=== PATIENT | female | born 1940 | race Caucasian/White ===

== ENCOUNTER 2021-02-05 11:24 | Emergency (ER) | payer MEDICARE, SELFPAY ==
--- NOTE | 2021-02-05 11:15 | RT.EKG_ITS ---
APPROVED REPORT Exam: Resting ECG Reason for Exam: S.O.B. Patient Location: E HR:77 bpm ECG Measurements Heart Rate 77 AXIS OK 167 P 69 QRSd 92 QRS 7 QT 339 T 42 QTc 385 Conclusion Sinus rhythm...normal P axis, V-rate 60- 99 Low voltage, extremity leads...all extremity leads <0.5mV
[2021-02-05 11:27] VITALS: BP 167/69; PULSE 85; RESP 22; TEMP 36.7; O2SAT 96
== END 2021-02-05 12:29 ==
DX: R69 Illness, unspecified (principal)
CPT/HCPCS: 93005; 93010

== ENCOUNTER 2021-02-05 11:35 | Inpatient (IN) | payer MEDICARE, SELFPAY ==
[2021-02-05] VITALS (103 sets, daily range): BP systolic 112–195; BP diastolic 54–161; PULSE 71–113; RESP 4–36; TEMP 36.1–37; O2SAT 88–100
[2021-02-05] MEDS: Normal Saline Flush 10 ML SYR IVP ×2 (11:45→18:21)
--- NOTE | 2021-02-05 11:45 | RT.EKG_ITS ---
APPROVED REPORT Exam: Resting ECG Reason for Exam: S.O.B. Patient Location: E HR:77 bpm ECG Measurements Heart Rate 77 AXIS GA 167 P 69 QRSd 92 QRS 7 QT 339 T 42 QTc 385 Conclusion Sinus rhythm...normal P axis, V-rate 60- 99 Low voltage, extremity leads...all extremity leads <0.5mV
--- NOTE | 2021-02-05 11:58 | ED.GENADUL_ITS ---
Discharge Plan Discharge Details Chief Complaint: RespSymp Admit Date/Time: 02/05/21 14:34 Admit Provider: Camille Cage Attending Provider: Camille Cage Primary Care Provider: None,None ED Provider: Fannie García Discharge Data Discharge Date/Time-TO BE ENTERED AT DEPARTURE: 02/05/21 21:25 Medical Decision Making <LIZANDRO Sosa - Last Filed: 02/06/21 22:56> Patient is an alert, oriented, of decisional capacity, she does not appear to be under the influence of any alcohol, she has no pulses in any way on my evaluation Her vitals are stable she is mildly tachypneic, she is dyspneic with any sort of movement and with each prolonged, she did have a DuoNeb that markedly improved her symptoms She also received a dose of Solu-Medrol She is still notably dyspneic with position change and even sitting upright in bed in long conversation, she will need admission and I think her evaluation displays that she has multifactorial illness, she likely has CHF and COPD affecting her at this time In addition to the hyponatremia which is likely causing her weakness Her bicarb was found to be elevated, 72, I did consider BiPAP for positive pressure, however patient is not hypoxic on 4 L of oxygen and likely this is a chronic finding for patient finding per patient and therefore D-dimer is 657, using age-adjusted D-dimer, there is no indication for CT at this time Chest x-ray shows cardiomegaly without overt signs of failure per radiology int erpretation of my review She was noted to be hyponatremic, 120 She was also noted to have hypomagnesemia, this was supplemented I believe sodium repletion to the discretion of the admitting hospitalist given patient's comorbidities, Dr. Cage requested a thyroid to be added on which I have, pending She also requested a dose of p.o. Lasix, we specifically discussed about hyponatremia and I did give oral 40 mg of Lasix Patient has been cooperative throughout the evaluation, her Covid test is negative and she reportedly was vaccinated over 1 month ago I think it is reasonable to remove her PUI at this time She was treated with Solu-Medrol and DuoNeb, she declines any at this time She did become very anxious and is chronically on Ativan, I did give her a dose of Ativan she is quite anxious, she did not exhibit obvious respiratory distress at this time and tolerated the Ativan well She is pending admission at this time, admission orders placed by Dr. Cage Differential Diagnosis Differential Diagnosis: Pulmonary embolism, pneumonia, CHF, COPD Medical Records Medical records reviewed: Yes I reviewed the patient's medical records. Lab Data Lab results reviewed: Yes I reviewed the patient's lab results. <Brayan Mayo MD - Last Filed: 02/05/21 12:46> I had a [id number] encounter with the patient. I evaluated the patient. I discussed case with [employer]PA and I reviewed [employer] note and agree with note as documented. HPI <LIZANDRO Sosa - Last Filed: 02/06/21 22:56> General Mode of arrival: EMS . Date/Time Provider Initiated Documentation: 02/05/21 11:51 . Limitations to Documentation: no limitations . Information obtained by: patient . HPI Narrative: This 80-year-old female with past medical history of COPD, CHF, right lung mass, hypomagnesemia, tobacco use presents with report of worsening shortness of breath and weakness for the past 2 weeks. She was discharged approximately 3 weeks ago from [facility] in [place]. She was reportedly living at a fdc facility and daughter rescued her. Patient drove with her daughter to [place] and has been here for approximately 2 weeks. She has yet to establish care with a provider. She states that her symptoms are similar to when she was previously admitted for similar presentation. She states she is unable to take more than several steps at home secondary to her shortness of breath. Denies any urinary complaints. States she drinks alcohol occasionally not daily. Her last drink was approximately a week and a half ago per patient. Denies any urinary complaints. Denies prior history of pulmonary embolism. Has had some increased peripheral edema. Has not been taking her Lasix for the past 8 months per patient. She would stay to complete a course of doxycycline approximately a week ago per patient. She thinks this was for a sinus infection. Related Data Home Medications Medication Instructions Recorded Confirmed Oxygen l NS PRN #2 07/28/14 06/09/15 ibuprofen 800 mg PO BID PRN #30 tab-cap 07/07/15 02/05/21 levalbuterol tartrate [Xopenex Hfa] 2 puff INHALATION Q4H PRN #1 07/07/15 02/05/21 inhaler acetaminophen 325 mg PO Q4H PRN 02/05/21 02/05/21 fluticasone furoate-vilanterol 1 inh INHALATION DAILY 02/05/21 02/05/21 [Breo Ellipta] furosemide 40 mg PO DAILY 02/05/21 02/05/21 levalbuterol HCl [Xopenex] 1.25 mg INHALATION Q8H PRN PRN 02/05/21 02/05/21 lidocaine 1 patch TOPICAL DAILY PRN 02/05/21 02/05/21 lisinopril 40 mg PO DAILY 02/05/21 02/05/21 lorazepam 0.5 mg PO BID PRN 02/05/21 02/05/21 roflumilast [Daliresp] 500 mcg PO DAILY 02/05/21 02/05/21 umeclidinium [Incruse Ellipta] 1 inh INHALATION DAILY 02/05/21 02/05/21 Allergies Allergy/AdvReac Type Severity Reaction Status Date / Time celecoxib [From Celebrex] Allergy Unknown Unverified 02/05/21 19:41 NSAIDS (Non-Steroidal Allergy Unknown Unverified 02/05/21 19:41 Anti-Inflamma Lfnlqfo-Dvm-Hlz Reductase Allergy Unknown Unverified 02/05/21 19:41 Inhibitor Sulfa (Sulfonamide Allergy Unknown unknown Unverified 02/05/21 12:22 Antibiotics) General Stated Complaint: RespSymp LOLA: 3 Review of Systems <LIZANDRO Sosa - Last Filed: 02/06/21 22:56> Narrative: Review of systems obtained x7 aside from where indicated in [facility] <LIZANDRO Sosa - Last Filed: 02/06/21 22:56> Medical History (Updated 02/06/21 @ 15:40 by Bharat Genao) Alcohol abuse Arthritis Back pain Bilateral sensorineural hearing loss CHF (congestive heart failure) Chronic frontal sinusitis Chronic maxillary sinusitis Chronic middle ear effusion Chronic respiratory failure with hypoxia Compression fracture of spine COPD (chronic obstructive pulmonary disease) GERD (gastroesophageal reflux disease) Hearing loss, bilateral Hyperlipidemia Hypertension Hyponatremia (07/20/14) Mass of right lung Mixed anxiety and depressive disorder Osteoporosis Psychiatric problem Tobacco abuse Surgical History (Updated 02/05/21 @ 19:45 by Camille Cage MD) H/O arthroscopy of left knee H/O cataract removal with insertion of prosthetic lens H/O pneumonectomy For histoplasmosis S/P colonoscopy Family History (System 02/05/21 @ 12:22 by Karmen Brownlee) Mother , colon cancer at age 85. No problems noted. Social History (System 02/05/21 @ 12:22 by Karmen Brownlee) Smoking/Tobacco Use Status: Current every day Tobacco Type: cigarettes Smoking risk assessment performed?: Yes Alcohol Intake: current Alcohol Intake frequency: holidays/special occasions only Drug use: Never Substance use type: does not use Do you feel safe at home: Yes Do you feel safe in your relationship?: Yes Exam <LIZANDRO Sosa - Last Filed: 02/06/21 22:56> Const General: ill appearing Orientation: alert and oriented x3 Limitations: mental status not altered HENMT Head: normal to inspection Other: Moist mucous membranes Resp Effort & Inspection: labored and tachypneic Auscultation: crackles, diminished lung sounds and wheezes Cardio Rate: regular rate Rhythm: regular rhythm Skin General skin exam: no rashes or lesions noted Neuro General: patient alert and patient oriented x3 Extrem Other: 1+ edema bilaterally, nontender Course <LIZANDRO Sosa - Last Filed: 02/06/21 22:56> Vital Signs Vital signs: Vital Signs Temperature 36.7 C 02/05/21 11:48 Pulse 85 02/05/21 11:48 Respiratory Rate 22 02/05/21 11:48 Blood Pressure 167/69 H 02/05/21 11:48 Pulse Oximetry 96 02/05/21 11:48 Temperature 36.7 C 02/05/21 11:48 Temperature Source Temporal Artery Scan 02/05/21 11:48 Pulse 85 02/05/21 11:48 Respiratory Rate 22 02/05/21 11:48 Respiratory Effort 02/05/21 11:52 Blood Pressure 167/69 H 02/05/21 11:48 Blood Pressure Position Sitting 02/05/21 11:48 Pulse Oximetry 96 02/05/21 11:48 Oxygen Delivery Method Nasal Cannula 02/05/21 11:48
[2021-02-05] MEDS: methylPREDNISolone SUCC 125 MG VIAL IM (12:00)
[2021-02-05] MEDS: Albuterol/Ipratropium 3 ML UPD VIAL UPD (12:01)
[2021-02-05 12:02] LABS: Lactate 0.7 mmol/L (0.6-1.4)
[2021-02-05 12:02] LABS: Source Nasal/Nares
[2021-02-05 12:03] LABS: Abs Immature Grans 0.03 10^3/uL (0.0-0.06); Absolute Basophil Count 0.02 10^3/uL (0.0-0.2); Absolute Eosinophil Count 0.01 10^3/uL (0.0-0.7); Absolute Lymphocyte Count 0.49 10^3/uL (1.2-3.4); Absolute Monocyte Count 0.56 10^3/uL (0.1-0.8); Absolute Neutrophil Count 4.04 10^3/uL (1.2-6.7); BE (Venous) 11 mmol/L (-2-3); Basophils % 0.4; Eosinophils % 0.2; HCO3 (Venous) 37 mmol/L (23-28); HGB 12.2 g/dL (11.2-15.7); Immature Grans % 0.6; Lymphocytes % 9.5; MCH 32.8 pg (27.0-33.0); MCHC 33.9 % (32.0-36.0); MCV 96.8 fL (80-95); MPV 8.9 fL (8.0-11.0); Monocytes % 10.9; Neutrophils % 78.4; Nucleated RBC 0 %; O2 Sat (Venous) 91 %; Platelet Count 251 10^3/uL (130-400); RBC 3.72 10^6/uL (3.93-5.22); RDW 13.2 % (11.7-14.6); RDW-SD 47.1 fL; TCO2 (Venous) 34 mmol/L (24-29); WBC 5.15 10^3/uL (4.4-10.8); pH (Venous) 7.32 (7.31-7.41); pO2 (Venous) 52 mmHg
[2021-02-05 12:05] LABS: pCO2 (Venous) 72 mmHg (41-51)
[2021-02-05 12:51] LABS: Bilirubin Negative (Negative); Blood Negative (Negative); Clarity Clear (Clear); Glucose Negative (Negative); Ketones Negative (Negative); Leukocyte Esterase Negative (Negative); Nitrite Negative (Negative); Specific Gravity 1.015 (1.005-1.025); pH 6.5 (5-8)
[2021-02-05 12:51] LABS: COVID-19 PCR Negative (Negative)
[2021-02-05 13:01] LABS: Bacteria Negative HPF (Negative); C & S Indicated? No; Casts Negative LPF (Negative); Crystals Negative HPF (Negative); Epithelial Cells Few HPF (Negative); Mucus Trace (Negative); RBC 0-2 HPF (0-2)
--- NOTE | 2021-02-05 13:15 | DI.RAD_ITS ---
Exam(s) XR CHEST 2V PA LATERAL EXAM: XR CHEST 2V PA LATERAL CLINICAL HISTORY: cough, shortness of breath TECHNIQUE: 2D digital imaging was performed. COMPARISON: No exams were available for comparison FINDINGS: Heart is enlarged. The aorta shows calcification but appears normal in diameter. There are diffuse fibrotic changes. Calcified granuloma is seen in the right upper lobe. No superimposed infiltrate i s visible. There is no evidence of effusion. IMPRESSION: No acute pulmonary findings. DATA REPOSITORY: RADIATION DOSE DELIVERED:
[2021-02-05 13:26] LABS: ALT 15 U/L (14-59); AST 19 U/L (15-37); Albumin 3.5 g/dL (3.4-5.0); Alkaline Phosphatase 106 U/L (46-116); Anion Gap 1.8 mmol/L (3-11); BUN 8 mg/dL (7-18); Bilirubin, Total 0.7 mg/dL (0.2-1.0); CO2 35.2 mmol/L (21.0-32.0); CREATININE 0.7 mg/dL (0.55-1.02); Calcium 8.8 mg/dL (8.5-10.1); Chloride 83 mmol/L (98-107); Glucose 96 mg/dL (74-106); Magnesium 1.5 mg/dL (1.8-2.4); NT-proBNP 579 pg/mL (<300); Potassium 5.1 mmol/L (3.5-5.1); Total Protein 6.9 g/dL (6.4-8.2)
[2021-02-05 13:39] LABS: Sodium 120 mmol/L (136-145); Troponin I < 0.05 ng/mL (<0.06)
[2021-02-05 13:40] LABS: D-Dimer 675 ng/mlFEU (<500)
[2021-02-05] MEDS: LORazepam 2 MG/ML VIAL (14:00)
[2021-02-05] MEDS: MAGNESIUM SULFATE 1 GM/100 ML BAG IVPB (14:01)
[2021-02-05] MEDS: Furosemide 20 MG TAB (14:48)
[2021-02-05 15:28] LABS: Troponin I < 0.05 ng/mL (<0.06)
[2021-02-05 15:32] LABS: TSH (W/Ref FT4) 0.84 uIU/mL (0.36-3.74)
[2021-02-05 15:38] LABS: Procalcitonin < 0.1 ng/mL
--- NOTE | 2021-02-05 15:43 | NUR.NOTE ---
ordered meal tray Nursing Note:
--- NOTE | 2021-02-05 16:56 | HPE_ITS ---
Date of service: 02/05/21 Time of Service: 16:40 Assessment and Plan Assessment and plan (1) Acute exacerbation of chronic obstructive pulmonary disease (COPD): Status: Acute Assessment and plan: Procalcitonin negative and sputum nonpurulent. Vaccinated against COVID-19; PCR negative. Continue steroids and nebs initiated in the ED. Resume outpatient roflumilast. (2) Acute exacerbation of CHF (congestive heart failure): Status: Acute Assessment and plan: IV lasix Monitor I/O's and daily weights. Obtain echo. (3) Chronic respiratory failure with hypoxia: Status: Chronic Assessment and plan: At baseline. Will monitor with activity (4) Hyponatremia: Status: Acute Assessment and plan: Could be dilutional in setting of acute CHF exacerbation or due to Bassam-i initiation. Hold Bassam-i. Diurese. Monitor BMP Q6Hrs. Latest Na is 122 when corrected for hyperglycemia. (5) Benign hypertension: Status: Chronic Assessment and plan: Hold bassam-i. Depending on echo results, would consider beta alberto. (6) Steroid-induced hyperglycemia: Status: Acute Assessment and plan: check A1C. Carb consistent diet, SSI. (7) Hypomagnesemia: Status: Acute Assessment and plan: Replete and recheck in am. (8) DVT prophylaxis: Status: Acute Assessment and plan: lovenox sc (9) Discharge planning issues: Status: Acute Assessment and plan: DNR/DNI Needs PCP. PT/OT consults suspect will require SNF placement Total Critical Care Time 60 minutes. History of Present Illness History of Present Illness Chief Complaint: Shortness of breath and weakness Narrative: Ms Sequeira is an 80 year old female who has recently relocated to [place] from [place], [place] (was taken out of a SNF by daughter), who has a PMHx of oxygen-dependent COPD, chronic hypoxic respiratory failure, normally on 3-4 L of O2 by OK, CHF (EF unknown), HTN, Hyperlipidemia, and hyponatremia, mentioned in our medical record in 2013, who was brought to [facility] ED by her daughter with complaints of shortness of breath and weakness for two days. The patient states she is fully vaccinated against COVID-19. She denies fever, runny nose, sore throat. States her cough is productive of clear sputum with occasional black stringy material. The patient states that her left ear still aches after recently recovering from a tooth infection which became sinusitis and ear infection as well. She completed antibiotics for this in [place]. She states that she has had a difficulty laying flat and wakes up short of breath in the middle of the night. She thinks her legs are more swollen than her baseline and that she has gained weight, but she does not weigh herself. She is denying chest pain, dizziness, abdominal pain, diarrhea/constipation. She endorses urinary frequency but denies dysuria. She endorses nausea when coughing, but has not been vomiting. In the ED, her workup revealed sodium of 120 (it has been as low as 125 in 2014 per records available to us in our computer system). Of note, the patient was prescribed lisinopril on discharge from [facility] [place], [place], on 01/13/21, which is a new med to her. She was found to be in both acute exacerbations of CHF and COPD. She was initiated on IV steroids, nebs, and lasix. Hospitalist admission was requested. Per patient's daughter, the patient was out of most of her medications except for lisinopril and fluticasone nasal spray and had not been taking them. Review of Systems All systems reviewed & are unremarkable except as noted in HPI and below PFSH Medical History (Updated 02/05/21 @ 20:17 by Camille Cage MD) Alcohol abuse Arthritis Back pain Bilateral sensorineural hearing loss CHF (congestive heart failure) Chronic frontal sinusitis Chronic maxillary sinusitis Chronic middle ear effusion Chronic respiratory failure with hypoxia Compression fracture of spine COPD (chronic obstructive pulmonary disease) GERD (gastroesophageal reflux disease) Hearing loss, bilateral Hyperlipidemia Hypertension Hyponatremia (07/20/14) Mass of right lung Mixed anxiety and depressive disorder Osteoporosis Psychiatric problem Tobacco abuse Surgical History (Updated 02/05/21 @ 19:45 by Camille Cage MD) H/O arthroscopy of left knee H/O cataract removal with insertion of prosthetic lens H/O pneumonectomy For histoplasmosis S/P colonoscopy Family History (System 02/05/21 @ 12:22 by Karmen Brownlee) Mother , colon cancer at age 85. No problems noted. Social History (System 02/05/21 @ 12:22 by Karmen Brownlee) Smoking/Tobacco Use Status: Current every day Tobacco Type: cigarettes Smoking risk assessment performed?: Yes Alcohol Intake: current Alcohol Intake frequency: holidays/special occasions only Drug use: Never Substance use type: does not use Do you feel safe at home: Yes Do you feel safe in your relationship?: Yes Meds Allergies and Home Medications Allergies Allergy/AdvReac Type Severity Reaction Status Date / Time celecoxib [From Celebrex] Allergy Unknown Unverified 02/05/21 19:41 NSAIDS (Non-Steroidal Allergy Unknown Unverified 02/05/21 19:41 Anti-Inflamma Vsylhre-Nmn-Eew Reductase Allergy Unknown Unverified 02/05/21 19:41 Inhibitor Sulfa (Sulfonamide Allergy Unknown unknown Unverified 02/05/21 12:22 Antibiotics) Home Medications Medication Instructions Recorded Confirmed Type Oxygen l NS PRN #2 07/28/14 06/09/15 History ibuprofen 800 mg PO BID PRN #30 tab-cap 07/07/15 02/05/21 History levalbuterol tartrate [Xopenex Hfa] 2 puff INHALATION Q4H PRN #1 07/07/15 02/05/21 History inhaler acetaminophen 325 mg PO Q4H PRN 02/05/21 02/05/21 History fluticasone furoate-vilanterol 1 inh INHALATION DAILY 02/05/21 02/05/21 History [Breo Ellipta] furosemide 40 mg PO DAILY 02/05/21 02/05/21 History levalbuterol HCl [Xopenex] 1.25 mg INHALATION Q8H PRN PRN 02/05/21 02/05/21 History lidocaine 1 patch TOPICAL DAILY PRN 02/05/21 02/05/21 History lisinopril 40 mg PO DAILY 02/05/21 02/05/21 History lorazepam 0.5 mg PO BID PRN 02/05/21 02/05/21 History roflumilast [Daliresp] 500 mcg PO DAILY 02/05/21 02/05/21 History umeclidinium [Incruse Ellipta] 1 inh INHALATION DAILY 02/05/21 02/05/21 History Exam Narrative Exam Narrative: General: Elderly female who is neither dyspneic nor tachypenic, hard of hearing, prefers to answer my questions with her eyes closed. Does not appear to be feeling well Neurological: A&Ox3, [place], otherwise no focal deficits Psychiatric: The patient appears detached; otherwise, normal speech pattern/content Skin: Visible skin intact HEENT: Atraumatic,normocephalic, EOMI, MMM, clear oropharynx, no submandibular or cervical lymphadenopathy, no goiter or JVD Cardiovascular: RRR, no m/r/g Lungs: rales and rhonchi B Gastrointestinal: soft, nontender, nondistended Genitourinary: deferred Extremities: 2+ BLE edema, L>R, 1+ pedal pulses B Results Imaging Additional studies: CXR: No acute pulmonary findings. EKG: NSR, HR 77, peaked T waves Labs Result diagrams: 02/05/21 11:45 02/05/21 17:58 Labs: Laboratory Results - last 24 hr 02/05/21 02/05/21 02/05/21 11:45 11:45 11:45 WBC 5.15 RBC 3.72 L Hgb 12.2 Hct 36.0 MCV 96.8 H MCH 32.8 MCHC 33.9 RDW 13.2 Plt Count 251 MPV 8.9 Immature Gran % 0.6 Neutrophils % 78.4 Lymphocytes % 9.5 Monocytes % 10.9 Eosinophils % 0.2 Basophils % 0.4 Nucleated RBC % 0 Absolute Neutrophils 4.04 Absolute Lymphocytes 0.49 L Absolute Monocytes 0.56 Absolute Eosinophils 0.01 Absolute Basophils 0.02 D-Dimer VBG pH VBG pCO2 VBG pO2 VBG HCO3 VBG Total CO2 VBG O2 Saturation VBG Base Excess VBG Lactate 0.7 Sodium Cancelled Potassium Cancelled Chloride Cancelled Carbon Dioxide Cancelled Anion Gap Cancelled BUN Cancelled Creatinine Cancelled Estimated GFR/1.73 m2 Cancelled Glucose Cancelled Calcium Cancelled Magnesium Total Bilirubin Cancelled AST Cancelled ALT Cancelled Alkaline Phosphatase Cancelled Troponin I Cancelled NT-Pro-B Natriuret Pep Cancelled Total Protein Cancelled Albumin Cancelled Procalcitonin TSH Urine Color Urine Clarity Urine pH Ur Specific [place] Urine Protein Urine Ketones Urine Blood Urine Nitrite Urine Bilirubin Urine Urobilinogen Ur Leukocyte Esterase Urine RBC Urine WBC Ur Epithelial Cells Urine Crystals Urine Bacteria Urine Casts Urine Mucus Ur Culture Indicated? Urine Glucose COVID-19 Source SARS-CoV-2 (PCR) 02/05/21 02/05/21 02/05/21 11:45 11:45 11:58 WBC RBC Hgb Hct MCV MCH MCHC RDW Plt Count MPV Immature Gran % Neutrophils % Lymphocytes % Monocytes % Eosinophils % Basophils % Nucleated RBC % Absolute Neutrophils Absolute Lymphocytes Absolute Monocytes Absolute Eosinophils Absolute Basophils D-Dimer 675 H VBG pH 7.32 VBG pCO2 72 H* VBG pO2 52 VBG HCO3 37 H VBG Total CO2 34 H VBG O2 Saturation 91 VBG Base Excess 11 H VBG Lactate Sodium Potassium Chloride Carbon Dioxide Anion Gap BUN Creatinine Estimated GFR/1.73 m2 Glucose Calcium Magnesium Total Bilirubin AST ALT Alkaline Phosphatase Troponin I NT-Pro-B Natriuret Pep Total Protein Albumin Procalcitonin TSH Urine Color Urine Clarity Urine pH Ur Specific [place] Urine Protein Urine Ketones Urine Blood Urine Nitrite Urine Bilirubin Urine Urobilinogen Ur Leukocyte Esterase Urine RBC Urine WBC Ur Epithelial Cells Urine Crystals Urine Bacteria Urine Casts Urine Mucus Ur Culture Indicated? Urine Glucose COVID-19 Source Nasal/nares SARS-CoV-2 (PCR) Negative 02/05/21 02/05/21 02/05/21 12:30 12:30 12:30 WBC RBC Hgb Hct MCV MCH MCHC RDW Plt Count MPV Immature Gran % Neutrophils % Lymphocytes % Monocytes % Eosinophils % Basophils % Nucleated RBC % Absolute Neutrophils Absolute Lymphocytes Absolute Monocytes Absolute Eosinophils Absolute Basophils D-Dimer VBG pH VBG pCO2 VBG pO2 VBG HCO3 VBG Total CO2 VBG O2 Saturation VBG Base Excess VBG Lactate Sodium 120 L* Potassium 5.1 Chloride 83 L Carbon Dioxide 35.2 H Anion Gap 1.8 L BUN 8 Creatinine 0.7 Estimated GFR/1.73 m2 >= 60.00 Glucose 96 Calcium 8.8 Magnesium Cancelled 1.5 L Total Bilirubin 0.7 AST 19 ALT 15 Alkaline Phosphatase 106 Troponin I < 0.05 NT-Pro-B Natriuret Pep 579 H Total Protein 6.9 Albumin 3.5 Procalcitonin < 0.1 TSH Urine Color Urine Clarity Urine pH Ur Specific [place] Urine Protein Urine Ketones Urine Blood Urine Nitrite Urine Bilirubin Urine Urobilinogen Ur Leukocyte Esterase Urine RBC Urine WBC Ur Epithelial Cells Urine Crystals Urine Bacteria Urine Casts Urine Mucus Ur Culture Indicated? Urine Glucose COVID-19 Source SARS-CoV-2 (PCR) 02/05/21 02/05/21 02/05/21 12:35 15:03 15:03 WBC RBC Hgb Hct MCV MCH MCHC RDW Plt Count MPV Immature Gran % Neutrophils % Lymphocytes % Monocytes % Eosinophils % Basophils % Nucleated RBC % Absolute Neutrophils Absolute Lymphocytes Absolute Monocytes Absolute Eosinophils Absolute Basophils D-Dimer VBG pH VBG pCO2 VBG pO2 VBG HCO3 VBG Total CO2 VBG O2 Saturation VBG Base Excess VBG Lactate Sodium Potassium Chloride Carbon Dioxide Anion Gap BUN Creatinine Estimated GFR/1.73 m2 Glucose Calcium Magnesium Total Bilirubin AST ALT Alkaline Phosphatase Troponin I < 0.05 NT-Pro-B Natriuret Pep Total Protein Albumin Procalcitonin TSH 0.84 Urine Color Yellow Urine Clarity Clear Urine pH 6.5 Ur Specific [place] 1.015 Urine Protein Trace H Urine Ketones Negative Urine Blood Negative Urine Nitrite Negative Urine Bilirubin Negative Urine Urobilinogen 1.0 H Ur Leukocyte Esterase Negative Urine RBC 0-2 Urine WBC 3-5 Ur Epithelial Cells Few Urine Crystals Negative Urine Bacteria Negative Urine Casts Negative Urine Mucus Trace Ur Culture Indicated? No Urine Glucose Negative COVID-19 Source SARS-CoV-2 (PCR) Last Vital Signs Temp 36.7 C 02/05/21 11:48 Pulse 95 H 02/05/21 16:46 Resp 23 02/05/21 16:46 BP 152/125 H 02/05/21 16:46 Pulse Ox 94 02/05/21 15:46 COVID-19 Screening Have you, or household traveled for leisure in last 14 days?: Yes Had IN PERSON contact w/suspected or confirmed C-19 person: No
[2021-02-05] MEDS: Enoxaparin 60 MG/0.6 ML SYR SC (18:18)
[2021-02-05] MEDS: Pantoprazole 40 MG VIAL IVP (18:20)
[2021-02-05 18:27] LABS: Anion Gap 3.7 mmol/L (3-11); BUN 9 mg/dL (7-18); CO2 33.3 mmol/L (21.0-32.0); Calcium 8.7 mg/dL (8.5-10.1); Chloride 82 mmol/L (98-107); Estimated GFR 53.35 (mL/min/1.73m2); Glucose 273 mg/dL (74-106); Potassium 4.8 mmol/L (3.5-5.1)
[2021-02-05 18:31] LABS: Sodium 119 mmol/L (136-145)
[2021-02-05 21:15] LABS: Osmolality, Urine 276 mOsm/kg (150-1,150)
[2021-02-05 21:21] LABS: Osmolality Serum 248 mOsm/kg (275-295)
[2021-02-05] MEDS: LORazepam 0.5 MG TAB PO (21:53)
[2021-02-05] MEDS: methylPREDNISolone SUCC 125 MG VIAL 80 MG IVP (21:54)
[2021-02-05] MEDS: Levalbuterol 1.25 MG/3 ML UPD VIAL IH (22:15)
[2021-02-05] MEDS: MAGNESIUM SULFATE 2 GM/50 ML BAG IVPB (22:16)
[2021-02-05] MEDS: Insulin Aspart 300 UNITS/3 ML PEN SC (22:38)
[2021-02-06] VITALS (44 sets, daily range): BP systolic 130–182; BP diastolic 55–87; PULSE 83–116; RESP 4–37; TEMP 36–36.5; O2SAT 88–99
[2021-02-06 01:02] LABS: Anion Gap 3.3 mmol/L (3-11); BUN 11 mg/dL (7-18); CO2 34.7 mmol/L (21.0-32.0); CREATININE 0.8 mg/dL (0.55-1.02); Calcium 8.7 mg/dL (8.5-10.1); Chloride 84 mmol/L (98-107); Glucose 180 mg/dL (74-106); Potassium 4.4 mmol/L (3.5-5.1)
[2021-02-06 01:03] LABS: Sodium 122 mmol/L (136-145)
[2021-02-06] MEDS: Normal Saline Flush 10 ML SYR IVP ×2 (04:59→21:37)
[2021-02-06] MEDS: Albuterol/Ipratropium 3 ML UPD VIAL UPD (04:59)
[2021-02-06] MEDS: methylPREDNISolone SUCC 125 MG VIAL 80 MG IVP (04:59)
[2021-02-06 07:01] LABS: Abs Immature Grans 0.01 10^3/uL (0.0-0.06); Absolute Eosinophil Count 0.01 10^3/uL (0.0-0.7); Absolute Lymphocyte Count 0.25 10^3/uL (1.2-3.4); Absolute Monocyte Count 0.05 10^3/uL (0.1-0.8); Absolute Neutrophil Count 2.71 10^3/uL (1.2-6.7); Eosinophils % 0.3; HCT 33.4 % (36.0-46.0); HGB 11.4 g/dL (11.2-15.7); Immature Grans % 0.3; Lymphocytes % 8.3; MCH 32.7 pg (27.0-33.0); MCHC 34.1 % (32.0-36.0); MCV 95.7 fL (80-95); MPV 9.2 fL (8.0-11.0); Monocytes % 1.7; Neutrophils % 89.4; Nucleated RBC 0 %; Platelet Count 253 10^3/uL (130-400); RBC 3.49 10^6/uL (3.93-5.22); RDW 13.2 % (11.7-14.6); RDW-SD 46.3 fL; WBC 3.03 10^3/uL (4.4-10.8)
[2021-02-06 07:13] LABS: Anion Gap 2.3 mmol/L (3-11); BUN 9 mg/dL (7-18); CO2 35.7 mmol/L (21.0-32.0); CREATININE 0.9 mg/dL (0.55-1.02); Calcium 8.9 mg/dL (8.5-10.1); Chloride 83 mmol/L (98-107); Glucose 245 mg/dL (74-106); Magnesium 1.8 mg/dL (1.8-2.4); Potassium 4.6 mmol/L (3.5-5.1)
[2021-02-06 07:15] LABS: Sodium 121 mmol/L (136-145)
[2021-02-06 07:32] LABS: Hemoglobin A1C 5.4 % (<5.7)
[2021-02-06] MEDS: Furosemide 20 MG/2 ML VIAL IVP (08:29)
[2021-02-06] MEDS: Insulin Aspart 300 UNITS/3 ML PEN SC ×2 (08:29→16:55)
[2021-02-06] MEDS: Roflumilast 500 MCG TAB PO (08:30)
--- NOTE | 2021-02-06 08:31 | INITIAL_ITS ---
- If Service Date Differs Date of service: 02/06/21 Time of Service: 08:32 Care Management Initial Assess REASON FOR HOSPITALIZATION:: Acute exacerbation of COPD PAST MEDICAL HISTORY/PAST SURGICAL HISTORY:: Medical History (Updated 02/05/21 @ 20:17 by Camille Cage MD). Alcohol abuse. Arthritis. Back pain. Bilateral sensorineural hearing loss. CHF (congestive heart failure). Chronic frontal sinusitis. Chronic maxillary sinusitis. Chronic middle ear effusion. Chronic respiratory failure with hypoxia. Compression fracture of spine. COPD (chronic obstructive pulmonary disease). GERD (gastroesophageal reflux disease). Hearing loss, bilateral. Hyperlipidemia. Hypertension. Hyponatremia (07/20/14). Mass of right lung. Mixed anxiety and depressive disorder. Osteoporosis. Psychiatric problem. Tobacco abuse. Surgical History (Updated 02/05/21 @ 19:45 by Camille Cage MD). H/O arthroscopy of left knee. H/O cataract removal with insertion of prosthetic lens. H/O pneumonectomy. For histoplasmosis. S/P colonoscopy PREVIOUS FUNCTIONAL STATUS/SOCIAL/FAMILY SUPPORTS:: Amanda lives in [facility]. with her daughter Reema. Amanda has 2 other daughters and 2 sons. She is close to the 2 boys and Reema but has not spoken to the others in a long time. She also has 14 grandchildren and 5-6 great grandchildren.[place] and they have [address]. She has recently relocated from [place] where she has lived for the past 40 years. Amanda was in an assisted living facility in [place] where she stated she received substandard care. Amanda uses a walker for ambulation but is independent with ADLs. She has home oxygen at 4 liters continuous bur uses 3L on her portable tank. CURRENT FUNCTIONAL STATUS:: Amanda was sitting up in bed in the ICU when CM met with her. She was polite and agreeable to conversation. 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 She has also moved a lot. She grew up in [facility], then moved to to [place], and then [place] before moving to [place] with her . ADVANCE DIRECTIVES:: none on file Has patient been provided with info about the portal/API?: Yes Did the patient sign up for the portal?: No CODE STATUS:: DNR/DNI INSURANCE COVERAGE / FINANCIAL ISSUES:: Medicare. Commercial Insurance CURRENT HOME/COMMUNITY SERVICES/EQUIPMENT:: amanda has a rollater and a shower chair and home oxygen PRIMARY CARE PHYSICIAN:: none in the area. Dr. Ortiz T-Doc on day of admission POTENTIAL DISCHARGE NEEDS:: establish care with local PCP PATIENT/FAMILY EDUCATION NEEDS:: Review of discharge instructions, medications, limitations, activity, follow up plan, Ask Me Three TRANSPORTATION:: via private vehicle with daughter PLAN:: Amanda will likley be discharged home with new home health services for nursing, PT and OT. She will follow up with her assigned provider and plan of care and transport with her daughter.
--- NOTE | 2021-02-06 09:02 | PT.INIE ---
Date of service: 02/06/21 Time of Service: 08:35 PT Notes Visit Reasons: ACUTE EXACERBATION OF COPD,RESP FALIURE,HYPONATREM Inpatient Physical Therapy Evaluation Date: February 06, 2021 Referring Doctor: Camille Cage PT Orders: PT CONSULT: Limited ability Precautions: Standard precautions Patient Profile/Admitting Diagnosis: Acute exacerbation of COPD, respiratory failure, hyponatremia PMHX: COPD, CHF, right lung mass, hypomagnesia, tobacco use, peripheral edema, benign hypertension, steroid-induced hyperglycemia Social History/Home Situation: Patient relocated to [place] living with her daughter coming from [place] from detention care facility. Ramp into the dwelling. She will be living on single floor with no stairs. Current Functional Limitations: Independent ambulation Equipment Owned/DME: Front wheeled walker Subjective: Patient is an 80-year-old female admitted to [facility] secondary to acute exacerbation of COPD. Patient reports worsening shortness of breath and weakness over the last couple weeks while she was relocating from [place] to [place] with her daughter. The trip took approximately 2 weeks to get to [place]. Reports she is limited with multiple step secondary to shortness of breath. Patient was living in a detention care facility, [facility] in [place]. Objective: General Observation: Upon start of initial evaluation patient was already sitting bedside. She states she assume that position independently. She has telemetry, cubital fossa IV, 4 L of O2, O2 saturation monitor left index finger (patient right-handed) blood pressure cuff left upper extremity Mental Status: Alert and oriented x3 Pain: Patient reports occasional pain in right knee secondary to OA. No pain at time of initial evaluation Vital Signs: O2 saturation upon start 91% on 4 L nasal cannula. Baseline home uses 3-4 L. Desaturated to 86% during transfer. ROM: Right Upper Extremity: Within functional limits Left Upper Extremity: Within functional limits Right Lower Extremity: Within functional limits Left Lower Extremity: Within functional limits Strength: Right Upper Extremity: 4/5 shoulder flexion and abduction, 4+/5 bicep tricep, 4+/5 maintenance service dispatcher Left Upper Extremity: 4/5 shoulder flexion and abduction, 4+/5 bicep and tricep, 4+/5 maintenance service dispatcher Right Lower Extremity: 4-/5 hip flexion, 4 -/5 quad with mild pain reports, 4/5 hamstring, 4/5 dorsiflexion and plantar flexion Left Lower Extremity: 4/5 hip flexion, quad and hamstring, 4/5 and plantar flexion Sensation: Ports intact sensation light touch throughout bilateral lower extremities Bed Mobility/Transfers: Supine to sit: Independent Sit to stand: Min assist x1 to front wheeled walker Stand to sit: Standby assist from front wheeled walker Sit to commode: Standby assist with front wheeled walker. Patient maintains static standing balance while donning her undergarment.. Bed mobility: Independent Gait: Patient ambulates 5 feet x 2 with contact-guard x1 with front wheeled walker Balance: Static Sitting: Good Dynamic Sitting: Good Static Standing: Fair Dynamic Standing: Fair Special Tests: Mobility Limitations Standardized Measure [facility] AM-PAC 6 clicks Basic Mobility Inpatient Short Form: Raw Score: 19 standardized Score: 45.44 CMS Score: 41.77 Informed Consent/Education: Patient instructed in purpose of PT consult and plan of care. Assessment: Patient is an 80-year-old female referred for physical therapy services with diagnosis of acute exacerbation of COPD. Functional ability actually quite decent. She does desaturate. Fab demonstrates good ability to perform supine to sit transfer as she was sitting bedside at start of initial evaluation. Patient presents with clinical signs and symptoms consistent with current/admitting diagnoses that have resulted to mobility limitations, gait instability, generalized weakness, and impairment of motor control as demonstrated by the following impairment level findings: 1.? Decreased strength to B LE major muscle groups 2.? Impaired standing balance 3.? Impaired activity tolerance, shortness of breath with ambulation Impairments are contributing to the following functional limitations: 1.? Dependent bed mobility skills 2.? Increased dependence with transfers 3.? Inability to safely ambulate without assistive device 4.? Increased fall risk 6.? Inability to return to prior living environment at this time Patient is assessed as a 97545 moderate complexity based on the following: History: 80-year-old female with past medical history as indicated above Examination: Demonstrable impairment in strength, balance, and mobility level with underlying impairments and functional limitations as exhibited above as well as deficit score of 41.77% utilizing the [facility] Mobility Inpatient Short Form Presentation: Evolving Decision Making:? 82409 moderate complexity Goals: Goals X1 week 1. Sit-Stand: Standby assist to front wheeled walker 2. Stand-Sit: Standby assist from front wheeled walker 3. Bed-Chair: Standby assist with use of front wheel walker 4. Chair-Bed: Standby assist with front wheeled walker 5. Gait: 150 feet standby assist with front wheeled walker 6. Independent with home exercise program [] Plan of Care/Treatment Plan: 1-2x/day, 7 days/week x 1 week. Plan of care has been reviewed with the KNOT SAW OPERATOR providing the service under Physical Therapy direction. Initiate Physical Therapy intervention for strengthening, bed mobility, transfers, gait, stairs, balance training, use of assistive device. DISCHARGE RECOMMENDATIONS: [facility] care facility upon discharge from [facility] TREATMENT CODE/TIME: 08917 / 8:35?9;05 Thank you for this consult. Brayan Garcia PT, DPT Disclaimer: This note was created using [employer] voice recognition software. It was reviewed for major content. However, there may be multiple small discrepancies and errors due to the voice recognition aspects of the software.
[2021-02-06] MEDS: predniSONE 20 MG TAB 60 MG PO (10:14)
[2021-02-06] MEDS: Furosemide 40 MG/4 ML VIAL IVP (10:14)
[2021-02-06] MEDS: Insulin NPH-Human 300 UNITS/3 ML PEN 15 UNIT SC ×2 (10:18→16:57)
--- NOTE | 2021-02-06 13:45 | PHA.REVIEW ---
Pharmacy Admission Review - Admission Clinical Review (This Medical Record has been edited. Action required.) Discharge planning issues (Acute) DVT prophylaxis (Acute) Hypomagnesemia (Acute) Steroid-induced hyperglycemia (Acute) Acute exacerbation of CHF (congestive heart failure) (Acute) Acute exacerbation of chronic obstructive pulmonary disease (COPD) (Acute) Hyponatremia (Acute 07/20/14) celecoxib [From Celebrex] Allergy (Unknown, Unverified 02/05/21 19:41) NSAIDS (Non-Steroidal Anti-Inflamma Allergy (Unknown, Unverified 02/05/21 19:41) Rtjktah-Nsn-Aza Reductase Inhibitor Allergy (Unknown, Unverified 02/05/21 19:41) Sulfa (Sulfonamide Antibiotics) Allergy (Unknown, Unverified 02/05/21 12:22) unknown Height 5 ft 5 in Weight 86.5 kg - Comments Comments/Follow Ups: Patient new to the area, had not been taking some of her meds. Trying to fluid restricted for Hyponatremia correction and started Lasix infusion for CHF. BP 147/67, Afebrile, no Micro. Recent Anbx course for ear/tooth infection. Trend Bnp, watch I/O and weight - Renal Dosing Renal Dosing: BUN 9 mg/dL (7-18) 02/06/21 06:08 Creatinine 0.9 mg/dL (0.55-1.02) 02/06/21 06:08 Medications needing adjustments: Reviewed (CrCl~45ml/min) - Anticoagulation Anticoagulation: Hgb 11.4 g/dL (11.2-15.7) 02/06/21 06:08 Hct 33.4 % (36.0-46.0) L 02/06/21 06:08 Plt Count 253 10^3/uL (130-400) 02/06/21 06:08 Creatinine 0.9 mg/dL (0.55-1.02) 02/06/21 06:08 DVT Prohphylaxis: Reviewed Medications: Enoxaparin (Lovenox 40mg) - Opiate Usage Evaluate Pain Scale/Pains Meds: N/A - Relevant Labs Sodium 121 mmol/L (136-145) L* 02/06/21 06:08 Potassium 4.6 mmol/L (3.5-5.1) 02/06/21 06:08 Chloride 83 mmol/L (98-107) L 02/06/21 06:08 Magnesium 1.8 mg/dL (1.8-2.4) 02/06/21 06:08 Electrolytes, C-Reactive P, ESR: Reviewed (Hyponatremic, aware, will need to increase slowly, restricting fluids (CHF) and on Lasix infusion, repeat afternoon labs, Probnp 579) - DM Control DM Control: Glucose 245 mg/dL (74-106) H 02/06/21 06:08 Hemoglobin A1c 5.4 % (<5.7) 02/06/21 06:08 Finger Stick Blood Glucose 131 Finger Stick Blood Glucose 131 Finger Stick Blood Glucose 195 Finger Stick Blood Glucose 195 Insulin Dosing: Reviewed (Novolog scale and NPH for additional coverage while on steroids) - Heart Failure/MN Heart Failure/MN: Troponin I < 0.05 ng/mL (<0.06) 02/05/21 15:03 NT-Pro-B Natriuret Pep 579 pg/mL (<300) H 02/05/21 12:30 EF%, STEPHANIE's, B-Blockers, Diuretics: Reviewed (Lasix infusion began 02/06/21~11am) - BP Control BP Control: Blood Pressure 147/67 Blood Pressure 145/65 Blood Pressure 130/55 Blood Pressure 157/65 Blood Pressure 160/82 Blood Pressure 172/77 Blood Pressure 182/82 Blood Pressure 149/71 - IV to PO Switch IV Medications: Reviewed (Protonix & Steroids changed to oral) - Home Meds Home Med List reviewed: Reviewed Relevent Home Meds Not ordered & why?: Ibuprofen, Lidocaine patch, Lisinopril (cause of Hyponatremia?), Incruse - Current meds Current Medication Order Review: Reviewed (Symbicort substituted from home med Breo Ellipta)
[2021-02-06 14:17] LABS: Anion Gap 0.8 mmol/L (3-11); BUN 15 mg/dL (7-18); CO2 38.2 mmol/L (21.0-32.0); CREATININE 0.9 mg/dL (0.55-1.02); Chloride 85 mmol/L (98-107); Glucose 172 mg/dL (74-106); Potassium 4.8 mmol/L (3.5-5.1)
[2021-02-06 14:18] LABS: Sodium 124 mmol/L (136-145)
--- NOTE | 2021-02-06 14:18 | W.PM.PROGNOT ---
Date of Service Date of service: 02/06/21 Time of Service: 14:18 Assessment and Plan Assessment and plan (1) Acute exacerbation of chronic obstructive pulmonary disease (COPD): Status: Acute Assessment and plan: cont. O2 per NC and nebulizers, steroids (switch to PO prednisone). No antibiotics at this time unless sputum becomes purulent or she has a fever or other markers of infection. Note she has been intolerant of her Daliresp d/t severe nausea and diarrhea. I will dc this. (2) Acute exacerbation of CHF (congestive heart failure): Status: Acute Assessment and plan: I suspect acute on chronic HFPEF d/t LVH, HTN. Troponin I have been neg. therefore not ACS. cont. lasix drip overnight w/ monitoring of her BNP and BMP and U.O. probably will dc the drip in the a.m. and switch her to po lasix. check formal echo on Monday a.m. Qualifiers: Heart failure type: unspecified Qualified Code(s): I50.9 - Heart failure, unspecified (3) Chronic respiratory failure with hypoxia: Status: Chronic Assessment and plan: oxygen, nebulizers and steroids as above. (4) Hyponatremia: Status: Acute Assessment and plan: d/t volume overload/chf. restrict po fluids and diurese as above. (5) DVT prophylaxis: Status: Acute Assessment and plan: enoxaparin SC (6) Discharge planning issues: Status: Acute Assessment and plan: discharge home to her daughter once medically stable. May need home nursing to follow up upon discharge. Subjective Subjective Interval history since last seen: 80-year-old white female with oxygen dependent COPD chronically on 3 to 4 L oxygen via nasal cannula at home, CHF (unknown ejection fraction) hypertension, hyperlipidemia, hyponatremia who recently relocated within the past month from [facility] [place] to [place], [place]. She presents to [facility] w/ progrssive dyspnea w/o chest pain, bilateral leg edema, but no fever, rigors. She has been fully vaccinated for COVID-19. She has had a cough productive of clear to white mucous. She recently completed antibitoics for URI/sinusits and ear infection. Evaluate in the ER revealed hyponatremia sodium 120. CBC did not show any leukocytosis. She was afebrile on admission. Troponin I was normal x 2 sets and her BNP was mildly elevated at 579. CXR demonstrated cardiomegaly w/ aortic calcification and lungs w/ diffuse fibrotic changes and calcified granulomas in RUL. She says that she had part of her left lung resected for Histoplasmosis. She has no infiltrates nor effusions on her CXR. She was diagnosed w/ COPD exacerbation and acute on chronic CHF. She was given iv lasix 20 mg in the ER but her repeat serum sodium went down to 119. I advised Dr. Cage to continue to diurese and to restrict her po fluid intake. Overnight her sodium has risen to 124. But her BUN and creatinine have remained relativ marlo stable at 15 and 0.9. She has been started on iv steroids, nebulized bronchodilators but not on antibiotics. I have put her on lasix drip to try to improve her urine output, control CHF and improve her hyponatremia. A formal echo will be done on Monday morning. Exam Narrative Exam Narrative: Obese elderly white female sitting up in bed watching TV. She is very hard of hearing and has her TV turned up very loud. After shutting off the TV however we were able to communicate She denies any pain. She is mildly dyspneic w/ any activity. She uses her accessory muscles but is not in any respiratory distress. Lungs w/ diffuse wheezing Heart is regular but slightly tachycardic Abdomen is soft, nontender and obese Legs w/ 1+ pitting edema Neuro exam is nonfocal w/ no gross motor or CN deficits other than she is very hard of hearing Objective Last Vital Signs Temp 36.1 C L 02/06/21 08:38 Pulse 89 02/06/21 12:01 Resp 14 02/06/21 12:01 BP 147/67 H 02/06/21 12:01 Pulse Ox 92 02/06/21 13:56 Laboratory Results - last 24 hr 02/05/21 02/05/21 02/05/21 12:30 15:03 15:03 WBC RBC Hgb Hct MCV MCH MCHC RDW Plt Count MPV Immature Gran % Neutrophils % Lymphocytes % Monocytes % Eosinophils % Basophils % Nucleated RBC % Absolute Neutrophils Absolute Lymphocytes Absolute Monocytes Absolute Eosinophils Absolute Basophils Sodium Potassium Chloride Carbon Dioxide Anion Gap BUN Creatinine Estimated GFR/1.73 m2 Glucose Hemoglobin A1c Calcium Magnesium Troponin I < 0.05 Procalcitonin < 0.1 TSH 0.84 02/05/21 02/06/21 02/06/21 17:58 00:40 06:08 WBC RBC Hgb Hct MCV MCH MCHC RDW Plt Count MPV Immature Gran % Neutrophils % Lymphocytes % Monocytes % Eosinophils % Basophils % Nucleated RBC % Absolute Neutrophils Absolute Lymphocytes Absolute Monocytes Absolute Eosinophils Absolute Basophils Sodium 119 L* 122 L* Potassium 4.8 4.4 Chloride 82 L 84 L Carbon Dioxide 33.3 H 34.7 H Anion Gap 3.7 3.3 BUN 9 11 Creatinine 1.0 0.8 Estimated GFR/1.73 m2 53.35 >= 60.00 Glucose 273 H D 180 H D Hemoglobin A1c 5.4 Calcium 8.7 8.7 Magnesium Troponin I Procalcitonin TSH 02/06/21 02/06/21 06:08 06:08 WBC 3.03 L D RBC 3.49 L Hgb 11.4 Hct 33.4 L MCV 95.7 H MCH 32.7 MCHC 34.1 RDW 13.2 Plt Count 253 MPV 9.2 Immature Gran % 0.3 Neutrophils % 89.4 Lymphocytes % 8.3 Monocytes % 1.7 Eosinophils % 0.3 Basophils % 0.0 Nucleated RBC % 0 Absolute Neutrophils 2.71 Absolute Lymphocytes 0.25 L Absolute Monocytes 0.05 L Absolute Eosinophils 0.01 Absolute Basophils 0.00 Sodium 121 L* Potassium 4.6 Chloride 83 L Carbon Dioxide 35.7 H Anion Gap 2.3 L BUN 9 Creatinine 0.9 Estimated GFR/1.73 m2 >= 60.00 Glucose 245 H Hemoglobin A1c Calcium 8.9 Magnesium 1.8 Troponin I Procalcitonin TSH Reviewed Pertinent PMH: Yes Objective Narrative Objective Narrative: POCUS exam of her lungs reveals diffuse bilateral B line patter c/w interstitial lung process such as CHF or interstitial pneumonitis. no pleural effusions nor any consolidations. Echo POCUS demonstrates: normal LV function w/ mod. LVH, calcified mitral and aortic valves (doppler not done). RV appears to contract well. IVC has >50 inspiratory collapse; small pericardial effusion seen
[2021-02-06] MEDS: Enoxaparin 40 MG/0.4 ML SYR SC (16:55)
[2021-02-06] MEDS: LORazepam 0.5 MG TAB PO (17:49)
[2021-02-06 18:56] LABS: Anion Gap 2.6 mmol/L (3-11); BUN 20 mg/dL (7-18); CO2 36.4 mmol/L (21.0-32.0); Calcium 9.2 mg/dL (8.5-10.1); Chloride 83 mmol/L (98-107); Estimated GFR 53.35 (mL/min/1.73m2); Glucose 204 mg/dL (74-106); Magnesium 1.5 mg/dL (1.8-2.4); Potassium 4.9 mmol/L (3.5-5.1)
[2021-02-06 19:03] LABS: Sodium 122 mmol/L (136-145)
[2021-02-06] MEDS: MAGNESIUM SULFATE 4 GM/100 ML BAG IVPB (19:29)
[2021-02-06] MEDS: Normal Saline 500 ML 10 ML IV (21:35)
[2021-02-07] VITALS (12 sets, daily range): BP systolic 148–158; BP diastolic 64–79; PULSE 81–104; RESP 4–24; TEMP 36.4–36.8; O2SAT 4–99
[2021-02-07] MEDS: LORazepam 0.5 MG TAB PO ×2 (02:15→18:59)
[2021-02-07 07:13] LABS: Anion Gap -1.8 mmol/L (3-11); BUN 20 mg/dL (7-18); CO2 41.8 mmol/L (21.0-32.0); CREATININE 0.9 mg/dL (0.55-1.02); Calcium 8.9 mg/dL (8.5-10.1); Chloride 85 mmol/L (98-107); Glucose 113 mg/dL (74-106); NT-proBNP 946 pg/mL (<300); Potassium 4.3 mmol/L (3.5-5.1); Sodium 125 mmol/L (136-145)
[2021-02-07] MEDS: Roflumilast 500 MCG TAB PO (08:20)
[2021-02-07] MEDS: predniSONE 20 MG TAB 60 MG PO (08:20)
[2021-02-07] MEDS: Pantoprazole 40 MG TABCR PO (08:20)
[2021-02-07] MEDS: Insulin NPH-Human 300 UNITS/3 ML PEN 15 UNIT SC (08:21)
[2021-02-07 09:07] LABS: Magnesium 2.3 mg/dL (1.8-2.4)
--- NOTE | 2021-02-07 09:16 | W.PM.PROGNOT ---
Date of Service Date of service: 02/07/21 Time of Service: 09:17 Assessment and Plan Assessment and plan (1) Acute exacerbation of chronic obstructive pulmonary disease (COPD): Status: Acute Assessment and plan: Per nursing patient is not having any diarrhea or nausea or vomiting therefore I do not think that the Daliresp has anything to do with her prior complaints of diarrhea and cramping; therefore I will keep the Daliresp. She has been refusing her nebulizer treatments. I have switched her to xopenex HFA qid and prn and added Spiriva. (2) Acute exacerbation of CHF (congestive heart failure): Status: Acute Assessment and plan: I suspect acute on chronic HFPEF d/t LVH, HTN. Troponin I have been neg. therefore not ACS. dc lasix drip and convert to po lasix w/ magnesium supplementation, monitor her BNP and BMP and check echo tomorrow Qualifiers: Heart failure type: unspecified Qualified Code(s): I50.9 - Heart failure, unspecified (3) Chronic respiratory failure with hypoxia: Status: Chronic Assessment and plan: oxygen, nebulizers and steroids as above. (4) Hyponatremia: Status: Acute Assessment and plan: d/t volume overload/chf. restrict po fluids and diurese as above. serum sodium is improving. (5) DVT prophylaxis: Status: Acute Assessment and plan: enoxaparin SC (6) Discharge planning issues: Status: Acute Assessment and plan: discharge home to her daughter once medically stable. May need home nursing to follow up upon discharge. However P.T. is recommending referral to SNF upon discharge. I am not sure that the patient or her daughter will be agreeable to this. Subjective Subjective Interval history since last seen: Patient has been refusing her updrafts (DuoNebs). I will change her to xopenex inhalers along w/ Spiriva. She is medically stable. Her hyponatremia is improving w/ diuretics and fluid restrictions. Magnesium was low last night and patient had complained of muscle spasms. Better today and Mg now up to 2.3. I will put her on oral supplementation given she will need continued lasxi; however, I think that we can dc the lassix drip and put her on oral lasix. She will be transferred to med/surg today. Continue prednisone. Exam Narrative Exam Narrative: Elderly white female who is very hard of hearing. alert/oriented Lungs w/ diffuse wheezing Heart regular but tachycardia (rhythm is sinus tachcardia) Abdomen: soft, nontender Legs: trace edema Ramesh draining clear yellow urine Objective Last Vital Signs Temp 36.2 C L 02/06/21 23:30 Pulse 84 02/07/21 03:34 Resp 22 02/07/21 08:00 BP 158/73 H 02/07/21 03:34 Pulse Ox 97 02/07/21 08:00 Laboratory Results - last 24 hr 02/06/21 02/06/21 02/07/21 14:02 18:38 06:00 Sodium 124 L 122 L* 125 L Potassium 4.8 4.9 4.3 Chloride 85 L 83 L 85 L Carbon Dioxide 38.2 H 36.4 H 41.8 H Anion Gap 0.8 L 2.6 L -1.8 L BUN 15 D 20 H 20 H Creatinine 0.9 1.0 0.9 Estimated GFR/1.73 m2 >= 60.00 53.35 >= 60.00 Glucose 172 H 204 H 113 H D Calcium 9.0 9.2 8.9 Magnesium 1.5 L 2.3 NT-Pro-B Natriuret Pep 946 H
--- NOTE | 2021-02-07 11:12 | PT.INTREAT ---
PT Notes Visit Reasons: ACUTE EXACERBATION OF COPD,RESP FALIURE,HYPONATREM Inpatient Physical Therapy Treatment Note [facility] Date: 02/07/21 OBJECTIVE: Sit-stand: CGA Stand-sit: CGA GAIT Assistive Device: FWW. Weight bearing: Full Assist: CGA Distance: Bed to window to chair and back to bed. Pt also completed marching in place to F. THEREX: Pt completed UE and LE strengthening ther ex as per flow sheet while seated. ASSESSMENT: Pt tolerated today's session fairly well. Pt did take short rest periods for SOB. PLAN: Cont as per PT POC. TREATMENT CODE/TIME: 10:25-10:50 (25) MARLA ZIMMER
[2021-02-07] MEDS: Levalbuterol 1.25 MG/3 ML UPD VIAL IH (11:18)
[2021-02-07] MEDS: Lisinopril 20 MG TAB PO (11:37)
[2021-02-07] MEDS: Azithromycin 250 MG TAB 500 MG PO (11:37)
[2021-02-07] MEDS: Magnesium Oxide 400 MG TAB PO ×2 (11:37→19:38)
--- NOTE | 2021-02-07 14:59 | NUR.NOTE ---
1340: Pt transferred from room 219 to room 226 via wheelchair with all her personal belongings, see shift assesment for complete arrival to to room 226 shift assesment.
[2021-02-07] MEDS: Furosemide 40 MG TAB PO (16:56)
[2021-02-07] MEDS: Insulin Aspart 300 UNITS/3 ML PEN SC (16:56)
[2021-02-07] MEDS: Enoxaparin 40 MG/0.4 ML SYR SC (16:56)
[2021-02-07] MEDS: Insulin NPH-Human 300 UNITS/3 ML PEN 10 UNIT SC (16:57)
--- NOTE | 2021-02-07 19:26 | PDOC.CMPRO ---
- If Service Date Differs Date of service: 02/07/21 Time of Service: 19:26 Care Management Progress Note S/O: A: Mary Jane is an 80 ear old woman admitted on 02/05/21 with COPD P:Mary Jane will likely be discharged home with new home health services for nursing, PT and OT. She will follow up with her assigned provider and plan of care and transport with her daughter. CM will continue to support Mary Jane and her discharge planning needs.
[2021-02-07] MEDS: Acetaminophen 325 MG TAB PO (21:10)
[2021-02-07] MEDS: Levalbuterol HFA 15 GM INH 2 PUFF IH (23:36)
[2021-02-08 03:17] VITALS: O2SAT 95
[2021-02-08 07:33] LABS: BUN 30 mg/dL (7-18); CREATININE 1.1 mg/dL (0.55-1.02); Calcium 9.1 mg/dL (8.5-10.1); Chloride 87 mmol/L (98-107); Estimated GFR 47.79 (mL/min/1.73m2); Glucose 76 mg/dL (74-106); NT-proBNP 629 pg/mL (<300); Potassium 4.5 mmol/L (3.5-5.1); Sodium 126 mmol/L (136-145)
[2021-02-08] MEDS: Pantoprazole 40 MG TABCR PO (07:33)
[2021-02-08] MEDS: Azithromycin 250 MG TAB PO (07:34)
[2021-02-08] MEDS: Budesonide/Formoterol 80/4.5 6.9 GM 60 PUFF INH IH (07:35)
[2021-02-08] MEDS: Magnesium Oxide 400 MG TAB PO (07:38)
[2021-02-08] MEDS: Lisinopril 20 MG TAB PO (07:39)
[2021-02-08] MEDS: Roflumilast 500 MCG TAB PO (07:39)
[2021-02-08] MEDS: predniSONE 20 MG TAB 60 MG PO (07:39)
[2021-02-08] MEDS: Furosemide 40 MG TAB PO (07:39)
[2021-02-08] MEDS: Tiotropium Bromide-Respimat 10 PUFF INH 2 PUFF IH (07:44)
--- NOTE | 2021-02-08 08:00 | DI.US_ITS ---
APPROVED REPORT EXAM: Comprehensive 2D, Doppler, and color-flow Echocardiogram Patient Location: In-Patient Room/Bed: 226 Lead Military Analyst: Abby Lopez RDCS (AE) Indications: CHF Other Information Study Quality: Fair. Technically limited study due to uncooperative patient, body habitus. Conclusion Left Ventricle : The left ventricle is normal size. The left ventricular systolic function is normal. The left ventricular ejection fraction is within the normal range. Mild concentric left ventricular hypertrophy. There is normal LV segmental wall motion. The diastolic function is abnormal. LVEF is 55 %. Right Ventricle : The right ventricle is normal size. The right ventricular systolic function is norm al. Atria : Left atrium is moderately dilated. Right atrium is moderately dilated. Valves: There are no hemodynamically significant valvular lesions. Great Vessels : The aortic root is normal in size. The ascending aorta is mildly dilated. Aortic arch is not visualized. The IVC was not visualized. Please see remainder of study for further details. Wall motion Left Ventricle The left ventricle is normal size. The left ventricular systolic function is normal. The left ventric ular ejection fraction is within the normal range. Mild concentric left ventricular hypertrophy. Ther e is normal LV segmental wall motion. The diastolic function is abnormal. There is no ventricular sep rochelle defect visualized. LVEF is 55%. Right Ventricle The right ventricle is normal size. The right ventricular systolic function is normal. Atria Left atrium is moderately dilated. Right atrium is moderately dilated. The interatrial septum is inta ct with no evidence for an atrial septal defect. Aortic Valve The aortic valve is normal in structure. Aortic valve is probably trileaflet. No hemodynamically sign ificant valvular aortic stenosis. Trace aortic regurgitation. Mitral Valve Moderate mitral annular calcification. No evidence of mitral valve stenosis. Trace to mild mitral reg urgitation. Tricuspid Valve The tricuspid valve is normal in structure. There is no tricuspid valve stenosis. Mild tricuspid regu rgitation. Pulmonic Valve The pulmonary valve is normal in structure. There is no pulmonic valvular stenosis. Trace pulmonic re gurgitation. Great Vessels The aortic root is normal in size. The ascending aorta is mildly dilated. Aortic arch is not visualiz ed. The IVC was not visualized. Pericardium There is no pericardial effusion. 2D Dimensions IVSD d PLAX 1.15 cm F: 0.6-1.0 LV Vol A2C d MOD 87.9 mL LVPW d PLAX 1.12 cm F: 0.6 - 1.0 LV Vol A4C d MOD 75.3 mL LVID d PLAX 4.44 cm F: 3.8 - 5.2 LA vol/ BSA A2C s A-L 40.5 mL/m2 LVDs 3.15 cm F: 2.2 - 3.5 LA vol/ BSA A4C s A-L 43.3 mL/m2 Ao Root d 2.45 cm F: 2.7 - 3.3 LA Vol/ BSA Biplane s A-L 42.2 mL/m2 RA Area A4C 15.94 cm2 LA Area A4C s MOD 24.39 cm2 RA Vol/ BSA A4C s A-L 21.6 mL/m2 LA Area A2C s MOD 23.41 cm2 Ao Asc Diam d 3.40 cm F: 2.3 - 3.1 LV EF A4C MOD 56.3 % LV EF Teichholz 55.0 % LV EF A2C MOD 54.6 % LVEF (Arenas's) 52.96 % F: 54 - 74 LV EF Biplane MOD 53.0 % LV Volume 62.24 mL F: 46 - 106 SV 43.60 mL LV Volume Index 31.91 mL/m2 F: 29 - 61 SV Index 22.33 mL/m2 LV Vol Biplane MOD 82.3 mL FS 28.40 % M-Mode TAPSE 2.13 cm (M/F) >1.7 LV Diastology MV E' medial 0.055 (>0.07 m/s) E/A Ratio 0.7 LV E/e MED 14.75 (<14) MV E Vmax 0.81 (0.4-1.3 m/s) MV E' lateral 0.073 (>0.1 m/s) MV A Vmax 1.10 (0.4-1.3 m/s) LV E/e LAT 11.05 (<14) MV E/A Ratio 0.73 MV E/E' medial 14.77 MV E/E' lateral 11.08 Aortic Valve LVOT Area 2.89 cm2 AoV Area Vmax 1.65 cm2 LVOT Vmax 1.13 m/s AoV Area/ BSA (Vmax) 0.85 cm2/m2 LVOT Mean Jimenez. 0.76 m/s SAMUEL Mean Jimenez. 1.48 cm2 LVOT Peak Grad 5.1 mmHg SAMUEL Mean Jimenez. Index 0.76 cm2/m2 LVOT Mean Grad 2.6 mmHg LVOT VTI 0.215 m LVOT Diam s 1.90 cm AoV Vmax 1.98 m/s Velocity Ratio 0.57 AoV Mean Jimenez. 1.49 m/s AoV Peak Grad 15.6 mmHg LVOT SV 62.05 mL AoV Mean Grad 9.7 mmHg AoV VTI 0.377 m AoV Area VTI 1.65 cm2 AoV Area/ BSA (VTI) 0.84 cm/m2 Mitral Valve MV DT 228 (160-240 msec) MV PHT 66 msec MV Area PHT 3.33 cm2 MV VTI 0.437 m MV VTI Annulus 0.422 m MV Area VTI 1.37 (4.0-6.0 cm2) Pulmonary Valve PV Vmax 0.96 (0.5-1.5 m/s) RVOT Peak Gr. 1.98 mmHg PV Peak Grad 3.7 mmHg RVOT Mean Gr. 0.90 mmHg PV Mean Grad 2.0 mmHg RVOT VTI 0.122 m PV VTI 0.189 m RVOT Vmax 0.70 m/s Tricuspid Valve TR Peak Grad 26.1 mmHg TR Vmax 2.55 m/s
--- NOTE | 2021-02-08 08:25 | DSE_ITS ---
Date of service: 02/08/21 Time of Service: 08:26 DS: Diagnosis Discharge Diagnosis (1) Acute exacerbation of chronic obstructive pulmonary disease (COPD): Status: Acute Asessment and Plan: Patient will be treated with 3 more days of prednisone 60 mg daily and she will complete 4 more days of azithromycin. She is to resume her home inhalers including Xopenex her Incruse Ellipta was replaced with Spi tu. She is to continue her Daliresp and her Brio Ellipta. (2) Acute exacerbation of CHF (congestive heart failure): Status: Acute Asessment and Plan: Patient should have an outpatient echocardiogram to evaluate LV and RV function. (3) Hyponatremia: Status: Acute Asessment and Plan: Patient has chronic hyponatremia probably due to her underlying COPD and CHF. Patient's been instructed on the use of her furosemide as well as fluid restriction. Repeat BMP has been ordered for next week. (4) Hypomagnesemia: Status: Acute Asessment and Plan: Patient experienced transient hypomagnesemia that caused some muscle spasms this was induced by a furosemide drip. This was readily corrected. It is recommended that she have a follow-up outpatient magnesium level once she resumes her oral furosemide. She may benefit from magnesium supplementation. (5) Steroid-induced hyperglycemia: Status: Acute Asessment and Plan: Patient experienced steroid-induced hyperglycemia which was treated with split doses of NPH. Glycohemoglobin A1c was 5.4% therefore the patient does not have diabetes mellitus. It is anticipated that her glucose will normalize once she tapers off the prednisone. (6) Benign hypertension: Status: Chronic Asessment and Plan: Patient to continue her lisinopril 40 mg daily. Furosemide has been increased to 40 mg twice a day. Patient is to have a follow-up BMP in a week to monitor her renal function electrolytes. (7) Discharge planning issues: Status: Acute Discharge Plan Disposition Patient Disposition: HOME W/HOME HEALTH SERVICE Condition: Improving Discharge Details Reason For Visit: ACUTE EXACERBATION OF COPD,RESP FALIURE,HYPONATREM Admit Date/Time: 02/05/21 14:34 Admit Provider: Camille Cage Attending Provider: Camille Cage Primary Care Provider: None,None Hospital Course Hospital Course: 80-year-old white female with a history of oxygen dependent COPD normally uses 3-4 L of oxygen by nasal cannula, history of CHF, hypertension, hyperlipidemia, hyponatremia recently moved from [facility] to [place] to live with her daughter. Patient had just been taken out of a SNF couple weeks prior to this admission after prolonged hospitalization in [place]. Patient is fully vaccinated against COVID-19. She presented to the emergency department with increased cough and shortness of breath but no fever or rigors or chest discomfort. Chest x-ray demonstrated cardiomegaly and aortic calcifications and diffuse fibrotic changes in the lungs along with a calcified granuloma in the right upper lobe. No superimposed infiltrates and no pleural effusions. BMP demonstrated hyponatremia with serum sodium of 119 with a normal BUN of 9 and creatinine 1.0. Glucose was elevated 273. Troponin I level was less than 0.05x2 sets. proBNP was mildly elevated at 579 but later climbed to as high as 946. TSH was normal at 0.84. Procalcitonin level was less than 0.1. CBC showed no leukocytosis. White count was 5100 and she had no anemia. Patient was admitted to the hospital for treatment of COPD exacerbation and acute on chronic congestive heart failure and hyponatremia. In the emergency department she was started on DuoNeb nebulizers and given Solu-Medrol. She was treated with high-dose Solu-Medrol throughout her hospital stay at 80 mg every 8 hours and then switched to prednisone 60 mg daily on the day prior to her discharge. Patient started to refuse nebulizers and insisted on her Xopenex MDI. Patient never spiked any fever and had no leukocytosis. Her hyperglycemia was treated with insulin including NPH and was placed on a sliding scale of NovoLog. Serial BMPs and proBNP were monitored. Serum sodium beti to as high as 126 on the day of discharge. She started to show some prerenal azotemia with a BUN of 30 and creatinine 1.1 at which point we held her Lasix. Magnesium transiently dropped to 1.5 but then was corrected to 2.3. proBNP on the day of discharge was down to 629. She was treated with a Lasix drip for 24 hours and then converted to oral Lasix and her fluids were restricted 1000 mL a day. Echocardiogram has been ordered but as it was the weekend this has not been completed. Patient is feeling markedly better and is insisting on going home today. She still has diffuse wheezes but is not tachypneic and not in any respiratory discomfort. She is on her baseline oxygen supplementation at 3 to 4 L/min per nasal cannula. She was started on azithromycin for an acute bronchitis and will complete 4 more days of azithromycin. Her furosemide will be held for a day and a repeat BMP has been ordered. She will be discharged home with home health services including home PT and home OT and nursing and medical appointment scheduler to assist with coordination of outpatient services. Home Meds and New Rx's Prescriptions: New azithromycin 250 mg Tablet 250 mg PO DAILY Qty: 4 RF: 0 prednisone 20 mg Tablet 60 mg PO DAILY 3 Days Qty: 9 RF: 0 Spiriva Respimat 2.5 mcg/actuation Mist 2 puff inhalation DAILY Qty: 1 RF: 0 Continued Oxygen EACH NS PRN Qty: 2 RF: 0 levalbuterol tartrate [Xopenex HFA] 15 GM HFA aerosol inhaler 2 puff Inhalation Q4H PRN Qty: 1 RF: 11 lisinopril 40 mg Tablet 40 mg PO DAILY RF: 0 furosemide 40 mg Tablet 40 mg PO DAILY RF: 0 acetaminophen 325 mg Tablet 325 mg PO Q4H PRNRF: 0 lidocaine 4 % Adhesive Patch,Medicated 1 patch TOPICAL DAILY PRNRF: 0 lorazepam 0.5 mg Tablet 0.5 mg PO BID PRNRF: 0 levalbuterol HCl [Xopenex] 1.25 mg/3 mL Solution For Nebulization 1.25 mg INHALATION Q8H PRN PRNRF: 0 Daliresp 500 mcg Tablet 500 mcg PO DAILY RF: 0 Breo Ellipta 100-25 mcg/dose Blister With Device 1 inh INHALATION DAILY RF: 0 Discontinued ibuprofen 800 MG tablet 800 mg PO BID PRNQty: 30 RF: 3 Incruse Ellipta 62.5 mcg/actuation Blister With Device 1 inh INHALATION DAILY RF: 0 Discharge Instructions Instructions: Heart Failure (DC), Chronic Lung Disease and Infection Prevention (DC), Energy Conservation Techniques (DC), Dyspnea Scale and Exercise (DC), Nutrition Guidelines for People with COPD (DC) Additional Instructions: do not take your lasix (furosemide) today but resume use tomorrow. get repeat labs within the next week to monitor your kidney function and sodium levels. Stand Alone Forms: Nursing Discharge Form Referrals: Georgi Ortiz [ [facility] STAFF PHYSICIAN] - 02/18/21 10:00 am (with Srinivasa Sanchezwell, will need to have paperwork filed out for New patient care after appt.) Activity:: Activity as Tolerated Equipment/Supplies:: No Equipment Needed Diet:: Low Sodium Discharge Orders Discharge Orders: Discharge Order (Routine); Ordered 02/08/21 Ordered By: Bharat Genao Other Ambulatory Orders: Basic Metabolic Panel (Routine) Timeframe: 1 Week Facility: [facility] - Location: Laboratory Outpatient Ordered By: Bharat Genao DS: Summary Time Spent with Patient providing and/or coordinating discharge services: Greater than 30 minutes Status at Discharge Functional status at discharge: independent ambulation Overall status at discharge: patient is progressing back to baseline Mental Status: mental status grossly normal Speech and Movement: speech and movement normal Mood: congruent mood Affect: normal affect Exam Narrative Exam Narrative: Elderly white female who is very hard of hearing. alert/oriented sitting up at bedside eating breakfast and watching TV Lungs w/ diffuse wheezing Heart regular but tachycardia (rhythm is sinus tachcardia) Abdomen: soft, nontender Legs: no edema Psych Mental Status: mental status grossly normal Speech and Movement: speech and movement normal Mood: congruent mood Affect: normal affect DS: Data Vitals/I&O Vitals and I&O: Vital Signs Temperature 36.8 C 02/07/21 23:38 Temperature Source Tympanic 02/07/21 23:38 Pulse 91 H 02/07/21 23:38 Pulse Rhythm Regular 02/08/21 03:17 Pulse 85 02/07/21 08:00 Respiratory Rate 19 02/07/21 23:38 Respiratory Effort Short of Breath 02/08/21 03:17 Respiratory Depth Normal 02/08/21 03:17 Respiratory Pattern Normal 02/08/21 03:17 Blood Pressure 148/78 H 02/07/21 23:38 Blood Pressure Mean 95 02/07/21 03:34 Blood Pressure Position Supine 02/07/21 08:00 Pulse Oximetry 95 02/08/21 03:17 Oxygen Delivery Method Nasal Cannula 02/08/21 03:17 Oxygen Flow Rate 4 02/08/21 03:17 Pain Level 0 02/07/21 23:38 Intake & Output 02/07/21 02/07/21 02/08/21 11:59 23:59 11:59 Intake Total 646.667 / 1305.834 659.167 / 1305.834 Output Total 1200 / 1500 300 / 1500 Balance -553.333 / -194.166 359.167 / -194.166 Weight 88.2 kg Intake: IV 36.667 / 255.834 219.167 / 255.834 Oral 610 / 1050 440 / 1050 Output: Urine 1200 / 1500 300 / 1500 Other: Urine Color Yellow Light Abi Yellow Urine Appearance Sediment Clear Clear Urine Odor Strong Comment Ramesh catheter in place draining clear yellow urine. Stool Size Smear Stool Characteristics Hard Voiding Methods Bedside Commode Bedside Commode Data Completed and Pending Labs on day of discharge: Labs from last 24 hours 02/08/21 02/07/21 02/05/21 06:50 06:00 12:35 Sodium 126 L 125 L Potassium 4.5 4.3 Chloride 87 L 85 L Carbon Dioxide 42.0 H 41.8 H Anion Gap -3.0 L -1.8 L BUN 30 H D 20 H Creatinine 1.1 H 0.9 Estimated GFR/1.73 m2 47.79 >= 60.00 Glucose 76 113 H D Serum Osmolality Calcium 9.1 8.9 Magnesium 2.3 NT-Pro-B Natriuret Pep 629 H 946 H Urine Osmolality 276 02/05/21 12:30 Sodium Potassium Chloride Carbon Dioxide Anion Gap BUN Creatinine Estimated GFR/1.73 m2 Glucose Serum Osmolality 248 L Calcium Magnesium NT-Pro-B Natriuret Pep Urine Osmolality [facility] Medical History (Updated 02/06/21 @ 15:40 by Bharat Genao) Alcohol abuse Arthritis Back pain Bilateral sensorineural hearing loss CHF (congestive heart failure) Chronic frontal sinusitis Chronic maxillary sinusitis Chronic middle ear effusion Chronic respiratory failure with hypoxia Compression fracture of spine COPD (chronic obstructive pulmonary disease) GERD (gastroesophageal reflux disease) Hearing loss, bilateral Hyperlipidemia Hypertension Hyponatremia (07/20/14) Mass of right lung Mixed anxiety and depressive disorder Osteoporosis Psychiatric problem Tobacco abuse Surgical History (Updated 02/05/21 @ 19:45 by Camille Cage MD) H/O arthroscopy of left knee H/O cataract removal with insertion of prosthetic lens H/O pneumonectomy For histoplasmosis S/P colonoscopy Family History (System 02/05/21 @ 12:22 by Karmen Brownlee) Mother , colon cancer at age 85. No problems noted. Social History (System 02/05/21 @ 12:22 by Karmen Brownlee) Smoking/Tobacco Use Status: Current every day Tobacco Type: cigarettes Smoking risk assessment performed?: Yes Alcohol Intake: current Alcohol Intake frequency: holidays/special occasions only Drug use: Never Substance use type: does not use Do you feel safe at home: Yes Do you feel safe in your relationship?: Yes
--- NOTE | 2021-02-08 08:26 | PDOC.HHF2F_ITS ---
Home Health Certification Home Health Certification: 1. Encounter Date and Reason I certify that Mary Jane Sequeira was seen by Bharat Genao on 02/08/21 and that I had a [id number] encounter with this patient that meets the physician face to face encounter requirements. 2. Clinical Findings Supporting Skilled Need and Homebound Status I certify that home health services are medically necessary, include either intermittent senior living and/or physical/speech therapy, and that this patient is homebound in that absences from the home require considerable and taxing effort and are infrequent or of short duration, or are attributable to the need to receive medical care. [X] (a) Attached documentation from encounter provides clinical findings supporting skilled need and homebound status (including what assistance patient requires to leave the home). The encounter with the patient was in whole, or in part, for the following medical condition, which is the primary reason for home health care: ACUTE EXACERBATION OF COPD,RESP FALIURE,HYPONATREM Care Home: nursing to evaluate and treat for COPD exacerbation and hyponatremia; including obtaining labs; instruction on management of exacerbation, monitoring of her respiratory response; instruction in energy conservation techniques Physical Therapy: P.T. and O.T. to evaluate and treat for generalized weakness and decondtioning due to COPD exacerbation Speech Therapy: Homebound: patient's respiratory status compromises her ability to safely obtain medical care outside her home 3. Certification and Authentication I certify that I composed the above information based on my clinical judgement relating to this patient's medical condition and, if applicable, clinical findings communicated to me by the NPP or inpatient physician who performed the Home Health Referral. All further orders will be obtained through Georgi Ortiz M.D. (Community Based Physician - PCP)
[2021-02-08] MEDS: Levalbuterol HFA 15 GM INH 2 PUFF IH (08:32)
[2021-02-08 08:34] VITALS: BP 152/74; PULSE 78; RESP 16; TEMP 36.7; O2SAT 100
[2021-02-08] MEDS: Insulin NPH-Human 300 UNITS/3 ML PEN 10 UNIT SC (08:43)
--- NOTE | 2021-02-08 12:16 | PDOC.CMDIS ---
- If Service Date Differs Date of service: 02/08/21 Time of Service: 12:16 LACE Index Scoring Tool - Questions: Length of Stay (in days): 3 Acuity (Admit via E.D.?): Yes Comorbidities: Congestive Heart Failure, Connective Tissue Disease E.D. Visits: 1 - Answers: Total Score: 12 Risk of Readmission: High Risk Care Management Discharge Reason for Hospitalization: Acute exacerbation of COPD Discharge Plan: Mary Jane will be discharged home with new home health services for PT, OT and nursing. She will follow up with her T-doc appointment at [facility] and plan of care. Mary Jane will transport with her daughter Reema via private vehicle. Patient/Family Education Needs: Review of discharge instructions, medications, limitations, activity, follow up plan, Ask Me Three Services Needed at Discharge: Home Health Care Services
[2021-02-08] MEDS: Acetaminophen 325 MG TAB PO (12:32)
--- NOTE | 2021-02-09 09:15 | PT.INDS ---
Date of service: 02/09/21 Time of Service: 09:16 PT Notes Visit Reasons: ACUTE EXACERBATION OF COPD,RESP FALIURE,HYPONATREM Physical Therapy Inpatient Discharge Summary Date: February 09, 2021 Date of service: 02/06/2021 through 02/07/2021 Referring Doctor: Camille Cage PT Orders: PT CONSULT: Limited ability Precautions: Standard precautions Patient Profile/Admitting Diagnosis: Acute exacerbation of COPD, respiratory failure, hyponatremia PMHX: COPD, CHF, right lung mass, hypomagnesia, tobacco use, peripheral edema, benign hypertension, steroid-induced hyperglycemia Social History/Home Situation: Patient relocated to [place] living with her daughter coming from [place] from [facility].? Ramp into the dwelling.? She will be living on single floor with no stairs. Current Functional Limitations: Independent ambulation Equipment Owned/DME: Front wheeled walker Subjective:?NT. See most recent EXPANSION JOINT BUILDER notes. Objective:?? General Observation: NT. See most recent EXPANSION JOINT BUILDER notes. Mental Status: Alert and oriented x3 Pain: NT. See most recent EXPANSION JOINT BUILDER notes. Vital Signs: NT. See most recent EXPANSION JOINT BUILDER notes. ROM: Right Upper Extremity: Within functional limits? Left Upper Extremity: Within functional limits Right Lower Extremity: Within functional limits Left Lower Extremity: Within functional limits Strength: Right Upper Extremity: 4/5 shoulder flexion and abduction, 4+/5 bicep tricep, 4+/5 casualty underwriter Left Upper Extremity: 4/5 shoulder flexion and abduction, 4+/5 bicep and tricep, 4+/5 casualty underwriter Right Lower Extremity: 4-/5 hip flexion, 4 -/5 quad with mild pain reports, 4/5 hamstring, 4/5 dorsiflexion and plantar flexion Left Lower Extremity: 4/5 hip flexion, quad and hamstring, 4/5 and plantar flexion Sensation:?Ports intact sensation light touch throughout bilateral lower extremities Bed Mobility/Transfers: Supine to sit: Independent Sit to stand: Contact-guard assist Stand to sit: Contact-guard assist Sit to commode:Contact-guard assist Bed mobility: Contact-guard assist Gait:?Patient ambulates 5 feet x 2 with contact-guard x1 with front wheeled walker Balance:? Static Sitting: Good Dynamic Sitting: Good Static Standing: Fair Dynamic Standing: Fair Assessment: Patient is an 80-year-old female referred for physical therapy services with diagnosis of acute exacerbation of COPD.?Patient to go home with 24 7 supervision. Functional ability actually quite decent. Patient will benefit from home health PT services in order to progress mobility level using least restrictive assistive ambulatory device, assess home safety, identify additional equipment needs, and establish a functional maintenance program that will increase ability of patient to remain at home. Patient continues to present with clinical signs and symptoms consistent with current/admitting diagnoses that have resulted to mobility limitations, gait instability, generalized weakness, and impairment of motor control as demonstrated by the following impairment level findings: 1.? Decreased strength to B LE major muscle groups 2.? Impaired standing balance 3.? Impaired activity tolerance, shortness of breath with ambulation ? Impairments are continuing to contribute to the following functional limitations: 1.? Increased dependence with transfers 2.? Inability to safely ambulate without assistive device 3.? Increased fall risk 64? Inability to return to prior living environment at this time Goals: Goals X1 week 1. Sit-Stand: Standby assist to front wheeled walker MET 2. Stand-Sit: Standby assist from front wheeled walker MET 3. Bed-Chair: Standby assist with use of front wheel walker MET 4. Chair-Bed: Standby assist with front wheeled walker MET 5. Gait: 150 feet standby assist with front wheeled walker MET 6. Independent with home exercise program MET DISCHARGE RECOMMENDATIONS: Patient will benefit from home health PT services in order to progress mobility level using least restrictive assistive ambulatory device, assess home safety, identify additional equipment needs, and establish a functional maintenance program that will increase ability of patient to remain at home. TREATMENT CODE/TIME: TN Thank you for the opportunity to participate in the care of this patient. Luzmaria Castro PT, DPT, CLT [facility] [place], [place]
== END 2021-02-08 13:08 | disposition home health service (06) | DRG 190 ==
LOC: ER 12:15 → ICU 21:30 → MS 02-07 13:44
PROVIDERS: Internal Medicine; Admitting Provider Internal Medicine; Emergency Provider Physician Assistant; Visit Provider Internal Medicine
DX: J44.1 Chronic obstructive pulmonary disease with (acute) exacerbation (principal); I50.33 Acute on chronic diastolic (congestive) heart failure; J96.11 Chronic respiratory failure with hypoxia; E87.1 Hypo-osmolality and hyponatremia; I11.0 Hypertensive heart disease with heart failure; E83.42 Hypomagnesemia; R73.9 Hyperglycemia, unspecified; T38.0X5A Adverse effect of glucocorticoids and synthetic analogues, initial encounter; Z20.822 Contact with and (suspected) exposure to COVID-19; Z66 Do not resuscitate; Z99.81 Dependence on supplemental oxygen; E78.5 Hyperlipidemia, unspecified; H90.3 Sensorineural hearing loss, bilateral; M54.9 Dorsalgia, unspecified; J32.1 Chronic frontal sinusitis; J32.0 Chronic maxillary sinusitis; K21.9 Gastro-esophageal reflux disease without esophagitis; R91.1 Solitary pulmonary nodule; F41.8 Other specified anxiety disorders; M81.0 Age-related osteoporosis without current pathological fracture; F17.210 Nicotine dependence, cigarettes, uncomplicated; F10.10 Alcohol abuse, uncomplicated
CPT/HCPCS: 36415; 36416; 80048; 80053; 82805; 82962; 83935; 84145; 87635; 93005; 93306; 94640; 96365; 96366; 96372; 96375; 97110; 97162; 97530; 99285; J1650; 71046; 81003; 81015; 83036; 83605; 83735; 83880; 83930; 84443; 84484; 85025; 85379; 93010; 99232; 99239; 99284; 99291; J1940; J1941; J2060; J2930; J3475; J7512; J7614; J7620

== ENCOUNTER 2021-02-17 12:11 | Inpatient (IN) | payer MEDICARE, SELFPAY ==
[2021-02-17] VITALS (88 sets, daily range): BP systolic 135–240; BP diastolic 63–122; PULSE 91–119; RESP 2–42; TEMP 31–37.5; O2SAT 79–98
--- NOTE | 2021-02-17 12:00 | RT.EKG_ITS ---
APPROVED REPORT Exam: Resting ECG Reason for Exam: sob Patient Location: E HR:104 bpm ECG Measurements Heart Rate 104 AXIS TX 144 P 51 QRSd 94 QRS 1 QT 321 T 40 QTc 423 Conclusion Sinus tachycardia...rate> 99 Low voltage, extremity leads...all extremity leads <0.5mV
[2021-02-17 12:35] LABS: Abs Immature Grans 0.07 10^3/uL (0.0-0.06); Absolute Basophil Count 0.03 10^3/uL (0.0-0.2); Absolute Eosinophil Count 0.02 10^3/uL (0.0-0.7); Absolute Lymphocyte Count 0.92 10^3/uL (1.2-3.4); Absolute Monocyte Count 0.81 10^3/uL (0.1-0.8); Absolute Neutrophil Count 9.74 10^3/uL (1.2-6.7); Basophils % 0.3; Eosinophils % 0.2; HCT 36.1 % (36.0-46.0); HGB 11.9 g/dL (11.2-15.7); Immature Grans % 0.6; Lymphocytes % 7.9; MCH 31.9 pg (27.0-33.0); MCV 96.8 fL (80-95); MPV 8.4 fL (8.0-11.0); Nucleated RBC 0 %; Platelet Count 263 10^3/uL (130-400); RBC 3.73 10^6/uL (3.93-5.22); RDW-SD 46.4 fL; WBC 11.59 10^3/uL (4.4-10.8)
[2021-02-17 12:48] LABS: Prothrombin Time 9.9 sec (9.3-11.0)
[2021-02-17 12:52] LABS: ALT 20 U/L (14-59); AST 20 U/L (15-37); Albumin 3.6 g/dL (3.4-5.0); Alkaline Phosphatase 88 U/L (46-116); Anion Gap -0.9 mmol/L (3-11); BUN 9 mg/dL (7-18); Bilirubin, Total 0.7 mg/dL (0.2-1.0); CO2 38.9 mmol/L (21.0-32.0); CREATININE 0.7 mg/dL (0.55-1.02); Calcium 9.1 mg/dL (8.5-10.1); Chloride 80 mmol/L (98-107); Glucose 103 mg/dL (74-106); NT-proBNP 598 pg/mL (<300); Potassium 5.4 mmol/L (3.5-5.1); Total Protein 7.2 g/dL (6.4-8.2); Troponin I < 0.05 ng/mL (<0.06)
[2021-02-17 12:55] LABS: HCO3 (Venous) 41 mmol/L (23-28); O2 Sat (Venous) 83 %; TCO2 (Venous) 38 mmol/L (24-29); pH (Venous) 7.39 (7.31-7.41); pO2 (Venous) 39 mmHg
[2021-02-17 12:56] LABS: BE (Venous) > 15 mmol/L (-2-3)
[2021-02-17 12:57] LABS: pCO2 (Venous) 68 mmHg (41-51)
[2021-02-17 12:58] LABS: Source Nasal/Nares
[2021-02-17 12:59] LABS: Sodium 118 mmol/L (136-145)
--- NOTE | 2021-02-17 13:06 | W.ED.GENAD ---
Discharge Plan Disposition Patient Disposition: [facility] INPATIENT Condition: Stable Discharge Details Clinical Impression: Acute respiratory failure with hypoxia and hypercarbia, D-dimer, elevated Admit Date/Time: 02/17/21 13:42 Admit Provider: Amish Wells Attending Provider: Amish Wells Primary Care Provider: Srinivasa Hamilton ED Provider: Dionicio Paez Discharge Data Discharge Date/Time-TO BE ENTERED AT DEPARTURE: 02/17/21 16:16 Medical Decision Making 1311 -- 80-year-old female with multiple medical problems including history of COPD and CHF, here with shortness of breath and generalized weakness. Patient has no pain. She is hypoxic and tachypneic with GERMAIN and generalized weakness, hypertensive and tachycardic on arrival. Patient in critical condition on arrival. Patient has significantly elevated work of breathing despite nasal cannula oxygen of 4 L. Concern for COPD/CHF exacerbation. I consulted respiratory therapy to apply BiPAP emergently. Patient reassessed and is not tolerating BiPAP. Plan to trial high flow nasal cannula. Given level of anxiety, respiratory therapist is requesting Ativan to see if this would help with her tolerating BiPAP. EKG was reviewed and interpreted by me: Please see report, sinus tachycardia 104 bpm, low voltage noted. Peaked T's laterally. VBG was reviewed and interpreted by me: PCO2 is elevated at 68, pH is normal. BNP is elevated slightly at 598. Following initial troponin negative. Patient is vaccinated but consider Covid. I will obtain Covid testing. 1319 --D-dimer elevated slightly above age adjusted that 858. Unfortunately patient will not tolerate lying flat for CT at this time. Repeat BP 142/65 1332 --labs reviewed and hyperkalemia noted with potassium of 5.4. Patient does seem to have peaked T waves. No old for comparison. Plan to treat with calcium gluconate, 1 amp bicarb, D 25 and insulin 10U. Patient is now tolerating BiPAP. -- Spoke with Chiara Naidu [employer] and discussed ED presentation and course - will admit patient to ICU. HPI General Mode of arrival: EMS. Date/Time Provider Initiated Documentation: 02/17/21 12:12. Information obtained by: patient and EMS. HPI Narrative: 80-year-old female with multiple medical problems including history of COPD and CHF, here with shortness of breath. Shortness of breath is severe. Persistent since onset last night. Constant. Patient notes associated generalized weakness. Patient has no chest pain. She does note Lower leg swelling with no calf pain. Related Data Home Medications Medication Instructions Recorded Confirmed Oxygen l NS PRN #2 07/28/14 06/09/15 levalbuterol tartrate [Xopenex HFA] 2 puff INHALATION Q4H PRN #1 07/07/15 02/17/21 inhaler Breo Ellipta 1 inh INHALATION DAILY 02/05/21 02/17/21 Daliresp 500 mcg PO DAILY 02/05/21 02/17/21 acetaminophen 325 mg PO Q4H PRN 02/05/21 02/17/21 levalbuterol HCl [Xopenex] 1.25 mg INHALATION Q8H PRN PRN 02/05/21 02/17/21 lidocaine 1 patch TOPICAL DAILY PRN 02/05/21 02/17/21 lisinopril 40 mg PO DAILY 02/05/21 02/17/21 Spiriva Respimat 2 puff INHALATION DAILY #1 inh 02/08/21 02/17/21 furosemide 40 mg tablet 40 mg PO DAILY #90 tab 02/10/21 02/17/21 lorazepam 0.5 mg tablet 0.5 mg PO BID PRN #90 tab 02/10/21 02/17/21 fluticasone propionate 2 spray INTRANASAL DAILY 02/21/21 02/21/21 doxycycline hyclate 100 mg PO BID #10 cap 02/22/21 famotidine 20 mg PO DAILY #30 tab 02/22/21 guaifenesin [Mucinex] 600 mg PO BID #10 tab 02/22/21 magnesium oxide 400 mg PO BID #30 tab 02/22/21 prednisone 40 mg PO DAILY #17 tab 02/22/21 Previous Rx's Medication Instructions Recorded Spiriva Respimat 2 puff INHALATION DAILY #1 inh 02/08/21 furosemide 40 mg tablet 40 mg PO DAILY #90 tab 02/10/21 lorazepam 0.5 mg tablet 0.5 mg PO BID PRN #90 tab 02/10/21 doxycycline hyclate 100 mg PO BID #10 cap 02/22/21 famotidine 20 mg PO DAILY #30 tab 02/22/21 guaifenesin [Mucinex] 600 mg PO BID #10 tab 02/22/21 magnesium oxide 400 mg PO BID #30 tab 02/22/21 prednisone 40 mg PO DAILY #17 tab 02/22/21 Allergies Allergy/AdvReac Type Severity Reaction Status Date / Time celecoxib [From Celebrex] Allergy Unknown Verified 02/17/21 13:29 NSAIDS (Non-Steroidal Allergy Unknown Verified 02/17/21 13:29 Anti-Inflamma Tncdbqc-[id number]-Vln Reductase Allergy Unknown Verified 02/17/21 13:29 Inhibitor Sulfa (Sulfonamide Allergy Unknown unknown Verified 02/17/21 13:29 Antibiotics) General Stated Complaint: SOB LOLA: 2 Review of Systems Unobtainable due to (limited secondary to respiratory distress and acuity of condition) Constitutional Constitutional: Denies fever(s) Cardiovascular Cardiovascular: Denies chest pain Respiratory Respiratory: Reports as per [facility] Medical History (Updated 02/22/21 @ 14:31 by Lynne Garcia NP) Alcohol abuse Arthritis Back pain Bilateral sensorineural hearing loss CHF (congestive heart failure) 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 Cancer Stroke Father , 90's Diabetes Heart disease Hyperlipidemia Sister , 60's Diabetes Social History Smoking/Tobacco Use Status: Current every day Tobacco Type: cigarettes Tobacco: How many years used: 60 Second Hand Exposure: Yes Smoking risk assessment performed?: Yes Alcohol Intake: current Alcohol Intake frequency: holidays/special occasions only Drug use: Socially Substance use type: does not use Caregiver/Support person: Yes Pets and animals: Yes Pets and animals: dog(s) Sexually active: No What is your relationship status?: How often do you talk on the phone with friends or family?: twice per week How often do you get together with friends or relatives?: never How often do you attend latter-day or anglican services?: decline to answer Do you belong to any clubs or organized social groups?: no Panel score (0-1 are the most socially isolated patients): 0 What type of physical activity do you participate in: none Malgorzata/Anabaptist: Protestant Seatbelt use: sometimes Helmet use: No Drive intox or ride w/intox route driver: No Do you feel safe at home: Yes Do you feel safe in your relationship?: Yes Exam Const General: acute distress respiratory Orientation: alert HENMN Head: normocephalic and atraumatic Mouth: moist mucous membranes Eyes Conjunctivae: normal conjunctivae Sclera: normal sclerae Neck Neck: trachea midline and supple Resp Effort & Inspection: not able to speak in complete sentences, respiratory distress and tachypneic Auscultation: rales bilaterally, no rhonchi and no wheezes Cardio Rate: tachycardic Rhythm: regular rhythm GI Palpation: soft, not firm, no guarding, no masses, not rigid and nontender Skin General skin exam: no rashes or lesions noted Neuro General: patient alert, patient awake, patient oriented x3 and tone normal Extrem General: edema Laterality: bilateral Psych Appearance: grossly normal Mental Status: mental status grossly normal Speech and Movement: speech and movement normal Course Vital Signs Vital signs: Vital Signs Respiratory Rate 33 H 02/17/21 12:20 Pulse Oximetry 83 L 02/17/21 12:20 Pulse 98 H 02/17/21 13:01 Pulse 103 H 02/17/21 13:01 Respiratory Rate 25 H 02/17/21 13:01 Respiratory Effort Accessory Muscle Use 02/17/21 13:01 Respiratory Pattern Tachypnea 02/17/21 13:01 Blood Pressure 135/63 02/17/21 13:01 Blood Pressure Mean 78 02/17/21 13:01 Pulse Oximetry 91 L 02/17/21 13:01 Fraction of Inspired Oxygen (FIO2) 28 02/17/21 12:47 Lab/Test Results Lab/Test Results: Laboratory Tests Range/Units 02/17/21 02/17/21 02/17/21 12:25 12:25 12:25 WBC (4.4-10.8) 10^3/uL 11.59 H RBC (3.93-5.22) 10^6/uL 3.73 L Hgb (11.2-15.7) g/dL 11.9 Hct (36.0-46.0) % 36.1 MCV (80-95) fL 96.8 H MCH (27.0-33.0) pg 31.9 MCHC (32.0-36.0) % 33.0 RDW (11.7-14.6) % 13.0 Plt Count (130-400) 10^3/uL 263 MPV (8.0-11.0) fL 8.4 Immature Gran % 0.6 Neutrophils % 84.0 Lymphocytes % 7.9 Monocytes % 7.0 Eosinophils % 0.2 Basophils % 0.3 Nucleated RBC % % 0 Absolute Neutrophils (1.2-6.7) 10^3/uL 9.74 H Absolute Lymphocytes (1.2-3.4) 10^3/uL 0.92 L Absolute Monocytes (0.1-0.8) 10^3/uL 0.81 H Absolute Eosinophils (0.0-0.7) 10^3/uL 0.02 Absolute Basophils (0.0-0.2) 10^3/uL 0.03 PT (9.3-11.0) sec 9.9 INR (0.9-1.1) 1.0 VBG pH (7.31-7.41) VBG pCO2 (41-51) mmHg VBG pO2 mmHg VBG HCO3 (23-28) mmol/L VBG Total CO2 (24-29) mmol/L VBG O2 Saturation % VBG Base Excess (-2-3) mmol/L Sodium (136-145) mmol/L 118 L* Potassium (3.5-5.1) mmol/L 5.4 H Chloride (98-107) mmol/L 80 L Carbon Dioxide (21.0-32.0) mmol/L 38.9 H Anion Gap (3-11) mmol/L -0.9 L BUN (7-18) mg/dL 9 Creatinine (0.55-1.02) mg/dL 0.7 Estimated GFR/1.73 m2 (mL/min/1.73m2) >= 60.00 Glucose (74-106) mg/dL 103 Calcium (8.5-10.1) mg/dL 9.1 Total Bilirubin (0.2-1.0) mg/dL 0.7 AST (15-37) U/L 20 ALT (14-59) U/L 20 Alkaline Phosphatase (46-116) U/L 88 Troponin I (<0.06) ng/mL < 0.05 NT-Pro-B Natriuret Pep (<300) pg/mL 598 H Total Protein (6.4-8.2) g/dL 7.2 Albumin (3.4-5.0) g/dL 3.6 COVID-19 Source Range/Units 02/17/21 02/17/21 12:50 12:52 WBC (4.4-10.8) 10^3/uL RBC (3.93-5.22) 10^6/uL Hgb (11.2-15.7) g/dL Hct (36.0-46.0) % MCV (80-95) fL MCH (27.0-33.0) pg MCHC (32.0-36.0) % RDW (11.7-14.6) % Plt Count (130-400) 10^3/uL MPV (8.0-11.0) fL Immature Gran % Neutrophils % Lymphocytes % Monocytes % Eosinophils % Basophils % Nucleated RBC % % Absolute Neutrophils (1.2-6.7) 10^3/uL Absolute Lymphocytes (1.2-3.4) 10^3/uL Absolute Monocytes (0.1-0.8) 10^3/uL Absolute Eosinophils (0.0-0.7) 10^3/uL Absolute Basophils (0.0-0.2) 10^3/uL PT (9.3-11.0) sec INR (0.9-1.1) VBG pH (7.31-7.41) 7.39 VBG pCO2 (41-51) mmHg 68 H* VBG pO2 mmHg 39 VBG HCO3 (23-28) mmol/L 41 H VBG Total CO2 (24-29) mmol/L 38 H VBG O2 Saturation % 83 VBG Base Excess (-2-3) mmol/L > 15 H Sodium (136-145) mmol/L Potassium (3.5-5.1) mmol/L Chloride (98-107) mmol/L Carbon Dioxide (21.0-32.0) mmol/L Anion Gap (3-11) mmol/L BUN (7-18) mg/dL Creatinine (0.55-1.02) mg/dL Estimated GFR/1.73 m2 (mL/min/1.73m2) Glucose (74-106) mg/dL Calcium (8.5-10.1) mg/dL Total Bilirubin (0.2-1.0) mg/dL AST (15-37) U/L ALT (14-59) U/L Alkaline Phosphatase (46-116) U/L Troponin I (<0.06) ng/mL NT-Pro-B Natriuret Pep (<300) pg/mL Total Protein (6.4-8.2) g/dL Albumin (3.4-5.0) g/dL COVID-19 Source Nasal/nares Critical Care Time Critical Care Time Critical Care Time: Yes Total Critical Care Time: 45 Attestation: I spent greater than 45 minutes addressing this patient's immediate life threats. Please see MDM section of note. This time was spent engaged in work directly related to the patient's care, exclusive of separate procedures, and failure to initiate these interventions would have likely resulted in clinically significant or life threatening deterioration in the patient's condition.
[2021-02-17 13:13] LABS: D-Dimer 858 ng/mlFEU (<500)
[2021-02-17] MEDS: LORazepam 2 MG/ML VIAL 1 MG IVP (13:15)
[2021-02-17] MEDS: methylPREDNISolone SUCC 125 MG VIAL IVP (13:15)
[2021-02-17] MEDS: Albuterol/Ipratropium 3 ML UPD VIAL UPD ×3 (13:23→23:20)
[2021-02-17 13:51] LABS: COVID-19 PCR Negative (Negative)
[2021-02-17] MEDS: Calcium Gluconate 4.65 MEQ/10 ML VIAL 4.65 MG IVP (13:57)
[2021-02-17] MEDS: Dextrose 50%-Water 25 GM/50 ML SYR (13:57)
[2021-02-17] MEDS: Insulin REGULAR-Human 100 UNITS/ML UNIT 10 UNITS SC (13:58)
[2021-02-17] MEDS: Sodium Bicarbonate 50 MEQ/50 ML SYR IVP (13:58)
--- NOTE | 2021-02-17 14:45 | RT.EKG_ITS ---
APPROVED REPORT Exam: Resting ECG Reason for Exam: peaked ts, hyperkalemia Patient Location: E HR:107 bpm ECG Measurements Heart Rate 107 AXIS IN 194 P 69 QRSd 92 QRS -1 QT 311 T 53 QTc 416 Conclusion Sinus tachycardia...rate> 99
--- NOTE | 2021-02-17 15:49 | DI.RAD_ITS ---
Exam(s) XR PORTABLE CHEST AP EXAM: XR PORTABLE CHEST AP CLINICAL HISTORY: difficulty breathing. TECHNIQUE: 2D digital imaging was performed. COMPARISON: CR XR CHEST 2V PA LATERAL from 02/05/2021 FINDINGS: Cardiomegaly again noted. Mediastinum not widened. Calcified granuloma in the right lung is unchang ed. Increased markings both lungs interstitial chronic increased markings are unchanged. No new infiltra prasanth nor pleural effusions. IMPRESSION: No acute pulmonary findings on this single AP portable view of the chest.Chronic increased interstiti al markings. DATA REPOSITORY: RADIATION DOSE DELIVERED: All CT scans at this facility use at least one of these dose optimization techniques: automated exposure control; mA and/or kV adjustment per patient size (includes targeted e xams where dose is matched to clinical indication); or iterative reconstruction.
[2021-02-17 17:14] LABS: Troponin I < 0.05 ng/mL (<0.06)
[2021-02-17] MEDS: Furosemide 40 MG/4 ML VIAL IVP (18:10)
[2021-02-17] MEDS: DOXYCYCLINE 100 MG in Normal Saline 100 ML IVPB (18:10)
[2021-02-17] MEDS: Insulin Aspart 300 UNITS/3 ML PEN SC (18:15)
[2021-02-17] MEDS: Albuterol 2.5 MG/3 ML INH SOLN VIAL UPD (18:43)
--- NOTE | 2021-02-17 20:26 | HPE_ITS ---
Date of service: 02/17/21 Time of Service: 17:34 Assessment and Plan Assessment and plan (1) Acute respiratory failure with hypoxia and hypercarbia: Status: Acute Assessment and plan: On chronic resp failure. Secondary to COPD exacerbation, less likely CHF given BNP adjusted normal. . BiPAP. (2) Hyponatremia: Status: Acute Assessment and plan: Acute on chronic. Gave lasix 40mg IV and cont 40mg po daily. Monitor (3) Tobacco dependence syndrome: Status: Chronic Assessment and plan: Nicotine replacement if pt desires. (4) COPD with exacerbation: Status: Acute Assessment and plan: Doxycycline 100mg IV BID Cont IV solumedrol. Scheduled Duonebs and prn albuterol nebs Daliresp (5) Hypertension: Status: Acute Assessment and plan: Cont lisinopril Monitor History of Present Illness History of Present Illness Chief Complaint: Shortness of breath Narrative: This is an 80-year-old female with multiple medical problems including COPD, CHF , chronic resp failure, COPD, hyponatremia, HLD, tobacco abuse disorder, HTN, alcohol abuse. She present with shortness of breath and generalized weakness.? She was hypoxic and tachypneic with GERMAIN and generalized weakness, hypertensive and tachycardic on arrival.? Patient was in critical condition on arrival. She denied F/C, CP. No N/V/abd pain. Patient has significantly elevated work of breathing despite nasal cannula oxygen of 4 L.? Concern for COPD/CHF exacerbation. Respiratory therapy administered BiPAP but she did not tolerate it well.? A trial high flow nasal cannula was initiated, then, given her level of anxiety, Ativan was administered and she tolerated BiPAP better. EKG showed sinus tachycardia 104 bpm, low voltage noted.? Peaked T's laterally. VBG: PCO2 is elevated at 68, pH is normal. BNP is elevated slightly at 598 but not elevated when age adjusted. Her initial troponin was negative. CXR showed chronic interstitial markings but no acute findings. IV solumedrol 125mg given in ED. Review of Systems All systems reviewed & are unremarkable except as noted in HPI and below [facility] Medical History (Updated 02/17/21 @ 20:44 by Amish Wells MD) Alcohol abuse Arthritis Back pain Bilateral sensorineural hearing loss CHF (congestive heart failure) Chronic frontal sinusitis Chronic maxillary sinusitis Chronic middle ear effusion Chronic respiratory failure with hypoxia Compression fracture of spine COPD (chronic obstructive pulmonary disease) GERD (gastroesophageal reflux disease) Hearing loss, bilateral Hyperlipidemia Hypertension Hyponatremia (07/20/14) Mass of right lung Mixed anxiety and depressive disorder Osteoporosis Psychiatric problem Tobacco abuse Surgical History (Updated 02/05/21 @ 19:45 by Camille Cage MD) H/O arthroscopy of left knee H/O cataract removal with insertion of prosthetic lens H/O pneumonectomy For histoplasmosis S/P colonoscopy Family History (Updated 02/16/21 @ 08:50 by Hui Camarena) Mother , colon cancer at age 85. Cancer Stroke Father , 90's Diabetes Heart disease Hyperlipidemia Sister , 60's Diabetes Social History (Updated 02/16/21 @ 08:48 by Hui Camarena) Smoking/Tobacco Use Status: Current every day Tobacco Type: cigarettes Tobacco: How many years used: 60 Second Hand Exposure: Yes Smoking risk assessment performed?: Yes Alcohol Intake: current Alcohol Intake frequency: holidays/special occasions only Drug use: Socially Substance use type: does not use Caregiver/Support person: Yes Pets and animals: Yes Pets and animals: dog(s) Sexually active: No What is your relationship status?: How often do you talk on the phone with friends or family?: twice per week How often do you get together with friends or relatives?: never How often do you attend oriental orthodox or christianity services?: decline to answer Do you belong to any clubs or organized social groups?: no Panel score (0-1 are the most socially isolated patients): 0 What type of physical activity do you participate in: none Malgorzata/Zoroastrian: Hoahaoism Seatbelt use: sometimes Helmet use: No Drive intox or ride w/intox driver/merchandiser: No Do you feel safe at home: Yes Do you feel safe in your relationship?: Yes Meds Allergies and Home Medications Allergies Allergy/AdvReac Type Severity Reaction Status Date / Time celecoxib [From Celebrex] Allergy Unknown Verified 02/17/21 13:29 NSAIDS (Non-Steroidal Allergy Unknown Verified 02/17/21 13:29 Anti-Inflamma Qfejkzy-Nuo-Abk Reductase Allergy Unknown Verified 02/17/21 13:29 Inhibitor Sulfa (Sulfonamide Allergy Unknown unknown Verified 02/17/21 13:29 Antibiotics) Home Medications Medication Instructions Recorded Confirmed Type Oxygen l NS PRN #2 07/28/14 06/09/15 History levalbuterol tartrate [Xopenex HFA] 2 puff INHALATION Q4H PRN #1 07/07/15 02/17/21 History inhaler Breo Ellipta 1 inh INHALATION DAILY 02/05/21 02/17/21 History Daliresp 500 mcg PO DAILY 02/05/21 02/17/21 History acetaminophen 325 mg PO Q4H PRN 02/05/21 02/17/21 History levalbuterol HCl [Xopenex] 1.25 mg INHALATION Q8H PRN PRN 02/05/21 02/17/21 History lidocaine 1 patch TOPICAL DAILY PRN 02/05/21 02/17/21 History lisinopril 40 mg PO DAILY 02/05/21 02/17/21 History azithromycin 250 mg PO DAILY #4 tab 02/08/21 02/17/21 Rx tiotropium bromide [Spiriva 2 puff INHALATION DAILY #1 inh 02/08/21 02/17/21 Rx Respimat] furosemide 40 mg tablet 40 mg PO DAILY #90 tab 02/10/21 02/17/21 Rx lorazepam 0.5 mg tablet 0.5 mg PO BID PRN #90 tab 02/10/21 02/17/21 Rx Exam Const General: cooperative, acute distress moderate (tachypnea) and ill appearing Nutritional Appearance: overweight Orientation: awake Resp Effort & Inspection: labored Auscultation: diminished lung sounds and wheezes expiratory wheezes Cardio Rate: tachycardic Rhythm: regular rhythm Heart Sounds: S1 normal and S2 normal GI Inspection: obesity Palpation: soft and nontender Extrem General: no calf tenderness and edema Laterality: bilateral (trace) Results Labs Result diagrams: 02/17/21 12:25 02/17/21 12:25 Labs: Laboratory Results - last 24 hr 02/17/21 02/17/21 02/17/21 12:25 12:25 12:25 WBC 11.59 H RBC 3.73 L Hgb 11.9 Hct 36.1 MCV 96.8 H MCH 31.9 MCHC 33.0 RDW 13.0 Plt Count 263 MPV 8.4 Immature Gran % 0.6 Neutrophils % 84.0 Lymphocytes % 7.9 Monocytes % 7.0 Eosinophils % 0.2 Basophils % 0.3 Nucleated RBC % 0 Absolute Neutrophils 9.74 H Absolute Lymphocytes 0.92 L Absolute Monocytes 0.81 H Absolute Eosinophils 0.02 Absolute Basophils 0.03 PT 9.9 INR 1.0 D-Dimer 858 H VBG pH VBG pCO2 VBG pO2 VBG HCO3 VBG Total CO2 VBG O2 Saturation VBG Base Excess Sodium 118 L* Potassium 5.4 H Chloride 80 L Carbon Dioxide 38.9 H Anion Gap -0.9 L BUN 9 Creatinine 0.7 Estimated GFR/1.73 m2 >= 60.00 Glucose 103 Calcium 9.1 Total Bilirubin 0.7 AST 20 ALT 20 Alkaline Phosphatase 88 Troponin I < 0.05 NT-Pro-B Natriuret Pep 598 H Total Protein 7.2 Albumin 3.6 COVID-19 Source SARS-CoV-2 (PCR) 02/17/21 02/17/21 02/17/21 12:50 12:52 16:45 WBC RBC Hgb Hct MCV MCH MCHC RDW Plt Count MPV Immature Gran % Neutrophils % Lymphocytes % Monocytes % Eosinophils % Basophils % Nucleated RBC % Absolute Neutrophils Absolute Lymphocytes Absolute Monocytes Absolute Eosinophils Absolute Basophils PT INR D-Dimer VBG pH 7.39 VBG pCO2 68 H* VBG pO2 39 VBG HCO3 41 H VBG Total CO2 38 H VBG O2 Saturation 83 VBG Base Excess > 15 H Sodium Potassium Chloride Carbon Dioxide Anion Gap BUN Creatinine Estimated GFR/1.73 m2 Glucose Calcium Total Bilirubin AST ALT Alkaline Phosphatase Troponin I < 0.05 NT-Pro-B Natriuret Pep Total Protein Albumin COVID-19 Source Nasal/nares SARS-CoV-2 (PCR) Negative Last Vital Signs Temp 37.5 C 02/17/21 16:36 Pulse 114 H 02/17/21 18:46 Resp 28 H 02/17/21 18:50 BP 240/122 H 02/17/21 18:46 Pulse Ox 93 02/17/21 18:50 COVID-19 Screening Have you, or household traveled for leisure in last 14 days?: No
[2021-02-17] MEDS: methylPREDNISolone SUCC 125 MG VIAL 60 MG IVP (22:17)
[2021-02-18] VITALS (30 sets, daily range): BP systolic 115–179; BP diastolic 55–110; PULSE 88–116; RESP 2–27; TEMP 31–36.8; O2SAT 90–99
[2021-02-18] MEDS: DOXYCYCLINE 100 MG in Normal Saline 100 ML IVPB ×2 (05:34→18:10)
[2021-02-18] MEDS: Albuterol/Ipratropium 3 ML UPD VIAL UPD ×3 (05:35→23:37)
[2021-02-18 07:21] LABS: Abs Immature Grans 0.02 10^3/uL (0.0-0.06); Absolute Lymphocyte Count 0.23 10^3/uL (1.2-3.4); Absolute Neutrophil Count 4.65 10^3/uL (1.2-6.7); HGB 11.3 g/dL (11.2-15.7); Immature Grans % 0.4; Lymphocytes % 4.6; MCH 32.3 pg (27.0-33.0); MCHC 34.2 % (32.0-36.0); MCV 94.3 fL (80-95); MPV 9.2 fL (8.0-11.0); Nucleated RBC 0 %; Platelet Count 255 10^3/uL (130-400); RDW 13.2 % (11.7-14.6); RDW-SD 45.2 fL
[2021-02-18 07:28] LABS: Anion Gap -0.1 mmol/L (3-11); BUN 10 mg/dL (7-18); CO2 40.1 mmol/L (21.0-32.0); CREATININE 0.7 mg/dL (0.55-1.02); Calcium 8.7 mg/dL (8.5-10.1); Chloride 83 mmol/L (98-107); Glucose 161 mg/dL (74-106); Potassium 4.4 mmol/L (3.5-5.1)
[2021-02-18 07:32] LABS: Sodium 123 mmol/L (136-145)
[2021-02-18] MEDS: Enoxaparin 40 MG/0.4 ML SYR SC (08:25)
[2021-02-18] MEDS: Lisinopril 20 MG TAB 40 MG PO (08:29)
[2021-02-18] MEDS: Roflumilast 500 MCG TAB PO (08:29)
[2021-02-18] MEDS: Budesonide/Formoterol 80/4.5 6.9 GM 60 PUFF INH IH ×2 (08:37→19:42)
[2021-02-18] MEDS: LORazepam 0.5 MG TAB PO ×2 (08:37→18:25)
[2021-02-18] MEDS: Furosemide 40 MG/4 ML VIAL IVP (08:37)
[2021-02-18] MEDS: Normal Saline Flush 10 ML SYR IVP ×2 (08:38→22:04)
[2021-02-18] MEDS: Insulin Aspart 300 UNITS/3 ML PEN SC ×3 (08:50→16:54)
--- NOTE | 2021-02-18 09:35 | W.PM.PROGNOT ---
Date of Service Date of service: 02/18/21 Time of Service: 09:35 Assessment and Plan Assessment and plan (1) Hypertension: Status: Acute Assessment and plan: Cont home Lisinopril 40mg daily. SBP 161 this AM. Monitor (2) Acute respiratory failure with hypoxia and hypercarbia: Status: Acute Assessment and plan: Oxygenation now maintained on hi-flow nasal cannula; titrate. (3) Hyponatremia: Status: Acute Assessment and plan: Chronic. Na now 123. IV lasix 40mg this AM; resume home oral lasix 40mg daily tomorrow. (4) Steroid-induced hyperglycemia: Status: Acute Assessment and plan: Glucose 161 this AM A1c on 02/06/21 was 5.4. Now on IV solu-medrol. (5) Tobacco dependence syndrome: Status: Chronic Assessment and plan: She declines nicotine replacement products (6) COPD with exacerbation: Status: Acute Assessment and plan: Improved air movement but with ongoing coarse exp wheezes. Cont supplemental O2 as needed. Duonebs are scheduled. PRN albuterol neb. Cont Symbicort. Previously prescribed Breo Ellipta but had not refilled for multiple months. IV solu-medrol 60mg Q12H. Subjective Subjective Patient reports: no new complaints, shortness of breath and afebrile; denies diarrhea and nausea Interval history since last seen: She endorses the ability to take in a deeper breath. Slept OK overnight Doesn't like the large nasal cannula of the hi-flow O2. Exam Const General: cooperative and no acute distress Nutritional Appearance: obese Orientation: awake (Initially asleep;woken easily), oriented to person and oriented to place Resp Effort & Inspection: labored (mild) and prolonged expiratory phase Auscultation: diminished lung sounds and wheezes expiratory wheezes (coarse) Cardio Rate: regular rate Rhythm: regular rhythm Heart Sounds: S1 normal and S2 normal GI Palpation: soft and nontender Extrem General: no pedal edema and no calf tenderness Objective Last Vital Signs Temp 36.2 C L 02/18/21 04:00 Pulse 89 02/18/21 06:01 Resp 24 02/18/21 06:01 BP 161/62 H 02/18/21 06:01 Pulse Ox 96 02/18/21 06:01 Laboratory Results - last 24 hr 02/17/21 02/17/21 02/17/21 12:25 12:25 12:25 WBC 11.59 H RBC 3.73 L Hgb 11.9 Hct 36.1 MCV 96.8 H MCH 31.9 MCHC 33.0 RDW 13.0 Plt Count 263 MPV 8.4 Immature Gran % 0.6 Neutrophils % 84.0 Lymphocytes % 7.9 Monocytes % 7.0 Eosinophils % 0.2 Basophils % 0.3 Nucleated RBC % 0 Absolute Neutrophils 9.74 H Absolute Lymphocytes 0.92 L Absolute Monocytes 0.81 H Absolute Eosinophils 0.02 Absolute Basophils 0.03 PT 9.9 INR 1.0 D-Dimer 858 H VBG pH VBG pCO2 VBG pO2 VBG HCO3 VBG Total CO2 VBG O2 Saturation VBG Base Excess Sodium 118 L* Potassium 5.4 H Chloride 80 L Carbon Dioxide 38.9 H Anion Gap -0.9 L BUN 9 Creatinine 0.7 Estimated GFR/1.73 m2 >= 60.00 Glucose 103 Calcium 9.1 Total Bilirubin 0.7 AST 20 ALT 20 Alkaline Phosphatase 88 Troponin I < 0.05 NT-Pro-B Natriuret Pep 598 H Total Protein 7.2 Albumin 3.6 COVID-19 Source SARS-CoV-2 (PCR) 02/17/21 02/17/21 02/17/21 12:50 12:52 16:45 WBC RBC Hgb Hct MCV MCH MCHC RDW Plt Count MPV Immature Gran % Neutrophils % Lymphocytes % Monocytes % Eosinophils % Basophils % Nucleated RBC % Absolute Neutrophils Absolute Lymphocytes Absolute Monocytes Absolute Eosinophils Absolute Basophils PT INR D-Dimer VBG pH 7.39 VBG pCO2 68 H* VBG pO2 39 VBG HCO3 41 H VBG Total CO2 38 H VBG O2 Saturation 83 VBG Base Excess > 15 H Sodium Potassium Chloride Carbon Dioxide Anion Gap BUN Creatinine Estimated GFR/1.73 m2 Glucose Calcium Total Bilirubin AST ALT Alkaline Phosphatase Troponin I < 0.05 NT-Pro-B Natriuret Pep Total Protein Albumin COVID-19 Source Nasal/nares SARS-CoV-2 (PCR) Negative 02/18/21 02/18/21 06:24 06:24 WBC 5.00 D RBC 3.50 L Hgb 11.3 Hct 33.0 L MCV 94.3 MCH 32.3 MCHC 34.2 RDW 13.2 Plt Count 255 MPV 9.2 Immature Gran % 0.4 Neutrophils % 93.0 Lymphocytes % 4.6 Monocytes % 2.0 Eosinophils % 0.0 Basophils % 0.0 Nucleated RBC % 0 Absolute Neutrophils 4.65 Absolute Lymphocytes 0.23 L Absolute Monocytes 0.10 Absolute Eosinophils 0.00 Absolute Basophils 0.00 PT INR D-Dimer VBG pH VBG pCO2 VBG pO2 VBG HCO3 VBG Total CO2 VBG O2 Saturation VBG Base Excess Sodium 123 L* Potassium 4.4 Chloride 83 L Carbon Dioxide 40.1 H Anion Gap -0.1 L BUN 10 Creatinine 0.7 Estimated GFR/1.73 m2 >= 60.00 Glucose 161 H Calcium 8.7 Total Bilirubin AST ALT Alkaline Phosphatase Troponin I NT-Pro-B Natriuret Pep Total Protein Albumin COVID-19 Source SARS-CoV-2 (PCR)
--- NOTE | 2021-02-18 09:48 | INITIAL_ITS ---
- If Service Date Differs Date of service: 02/18/21 Time of Service: 09:48 Care Management Initial Assess REASON FOR HOSPITALIZATION:: Acute respiratory failure with hypoxia PAST MEDICAL HISTORY/PAST SURGICAL HISTORY:: Medical History (Updated 02/17/21 @ 20:44 by Amish Wells MD). Alcohol abuse. Arthritis. Back pain. Bilateral sensorineural hearing loss. CHF (congestive heart failure). Chronic frontal sinusitis. Chronic maxillary sinusitis. Chronic middle ear effusion. Chronic respiratory failure with hypoxia. Compression fracture of spine. COPD (chronic obstructive pulmonary disease). GERD (gastroesophageal reflux disease). Hearing loss, bilateral. Hyperlipidemia. Hypertension. Hyponatremia (07/20/14). Mass of right lung. Mixed anxiety and depressive disorder. Osteoporosis. Psychiatric problem. Tobacco abuse. Surgical History (Updated 02/05/21 @ 19:45 by Camille Cage MD). H/O arthroscopy of left knee. H/O cataract removal with insertion of prosthetic lens. H/O pneumonectomy. For histoplasmosis. S/P colonoscopy PREVIOUS FUNCTIONAL STATUS/SOCIAL/FAMILY SUPPORTS:: Mary Jane lives in [facility] with her daughter Reema. Mary Jane has 2 other daughters and 2 sons. She is close to the 2 boys and Reema but has not spoken to the others in a long time. She also has 14 grandchildren and 5-6 great grandchildren.[place] and they have [address]. She has recently relocated from [place] where she has lived for the past 40 years. Mary Jane was in an assisted living facility in [place] where she stated she received substandard care. Mary Jane uses a walker for ambulation but is independent with ADLs. She has home oxygen at 4 liters continuous but uses 3L on her portable tank. CURRENT FUNCTIONAL STATUS:: Mary Jane was sitting up in a chair when CM met with her. She appeared to be having difficulty breathing and confirmed this when asked. Mary Jane stated that she has not been feeling well since the night of her discharge. She decided to come back to the hospital yesterday because I just couldn't breathe. ADVANCE DIRECTIVES:: none on file Has patient been provided with info about the portal/API?: Yes Did the patient sign up for the portal?: Yes (previously) CODE STATUS:: DNR/DNI INSURANCE COVERAGE / FINANCIAL ISSUES:: Medicare CURRENT HOME/COMMUNITY SERVICES/EQUIPMENT:: Home health PT, OT, prison PRIMARY CARE PHYSICIAN:: Srinivasa Hamilton POTENTIAL DISCHARGE NEEDS:: Follow up with PCP and discharge plan of care PATIENT/FAMILY EDUCATION NEEDS:: Review of discharge instrructions, medications, follow up plan, limitations, Ask Me Three TRANSPORTATION:: via private vehicle with family PLAN:: Mary Jane will likely be discharged home with a resumption of home health services for OT, PT and nursing. She will follow up with her new provider and discharge plan of care and transport with her daughter. CM will continue to support mary jane and her daughter and assess for discharge concerns. Readmission - Within the Past 30 Days Yes or No: Y - Date of First Admission Date of 1st Admission: 02/05/21 - Date of this Admission Date of Admission: 02/17/21 This admission was: Through ED
[2021-02-18 10:15] LABS: Magnesium 1.2 mg/dL (1.8-2.4)
[2021-02-18] MEDS: methylPREDNISolone SUCC 125 MG VIAL 60 MG IVP ×2 (10:15→22:03)
[2021-02-18] MEDS: MAGNESIUM SULFATE 2 GM/50 ML BAG IVPB (11:11)
[2021-02-18] MEDS: Magnesium Oxide 400 MG TAB PO ×2 (11:11→19:29)
--- NOTE | 2021-02-18 14:37 | CHAPLAIN ---
I received a call from Mary Jane's daughter, Johanne, who told me that Mary Jane is Tenriism and asked me to have the operations manager assistant visit. I let Johanne know that Fr. Barnett can visit if he is two weeks past his second vaccination shot, and that I would check. Fr. Barnett has not been vaccinated, so can't visit at this time. (He can visit if there is an end-of-life situation.) Johanne is a Buddhism and said she would also be asking two members from the [facility], to visit Mary Jane as well. I let her know that if the two people are two weeks past their second vaccination shot they can visit between 1 and 4 p.m. Mary Jane was listening to tv when I visited and brought her a comfort shawl. She is having a hard time hearing, but was pleasant and engaged in a short conversation with me.
--- NOTE | 2021-02-18 14:43 | NUR.NOTE ---
I was able to do Ramesh catheter care on PT. I offered the PT the supplies and help to do AM and oral care multiple times through out the day and PT has refused. Nursing Note:
[2021-02-18] MEDS: Normal Saline 500 ML IV (18:15)
[2021-02-18] MEDS: Acetaminophen 325 MG TAB PO (18:25)
--- NOTE | 2021-02-18 19:37 | NUR.NOTE ---
Nursing Note: Pt resting in bed upon assessment, watching TV. No signs of distress. Participated in bedside rounding. Took 2000 dose PO Magnesium with water, no swallowing difficulties. SaO2 92-96% 4LNC. Pt to be transferred to med/surg shortly.
--- NOTE | 2021-02-18 20:26 | NUR.NOTE ---
Nursing Note: pt transferred with MARLEN Navarrete to 227 with belongings and O2 via wheelchair.
[2021-02-19] VITALS (12 sets, daily range): BP systolic 127–159; BP diastolic 66–84; PULSE 82–110; RESP 1–20; TEMP 36.4–36.7; O2SAT 93–100
[2021-02-19] MEDS: Albuterol/Ipratropium 3 ML UPD VIAL UPD ×3 (05:31→20:26)
[2021-02-19] MEDS: Normal Saline Flush 10 ML SYR IVP ×3 (05:32→21:38)
[2021-02-19] MEDS: DOXYCYCLINE 100 MG in Normal Saline 100 ML IVPB (05:33)
[2021-02-19 07:21] LABS: HCT 32.9 % (36.0-46.0); HGB 11.1 g/dL (11.2-15.7); MCH 31.9 pg (27.0-33.0); MCHC 33.7 % (32.0-36.0); MCV 94.5 fL (80-95); Platelet Count 245 10^3/uL (130-400); RBC 3.48 10^6/uL (3.93-5.22); RDW 13.3 % (11.7-14.6); RDW-SD 45.6 fL; WBC 10.45 10^3/uL (4.4-10.8)
[2021-02-19 07:35] LABS: Anion Gap 0.1 mmol/L (3-11); BUN 11 mg/dL (7-18); CO2 39.9 mmol/L (21.0-32.0); CREATININE 0.8 mg/dL (0.55-1.02); Calcium 9.1 mg/dL (8.5-10.1); Chloride 83 mmol/L (98-107); Glucose 152 mg/dL (74-106)
[2021-02-19 07:37] LABS: Sodium 123 mmol/L (136-145)
[2021-02-19 07:45] LABS: Magnesium 1.8 mg/dL (1.8-2.4)
[2021-02-19] MEDS: Budesonide/Formoterol 80/4.5 6.9 GM 60 PUFF INH IH ×2 (08:51→20:27)
[2021-02-19] MEDS: Insulin Aspart 300 UNITS/3 ML PEN SC ×3 (09:10→16:52)
[2021-02-19] MEDS: Enoxaparin 40 MG/0.4 ML SYR SC (09:11)
[2021-02-19] MEDS: Furosemide 40 MG TAB PO (09:12)
[2021-02-19] MEDS: Magnesium Oxide 400 MG TAB PO ×2 (09:12→20:27)
[2021-02-19] MEDS: methylPREDNISolone SUCC 125 MG VIAL 60 MG IVP ×2 (09:13→21:38)
[2021-02-19] MEDS: Lisinopril 20 MG TAB 40 MG PO (09:13)
[2021-02-19] MEDS: LORazepam 0.5 MG TAB PO ×2 (09:19→20:27)
[2021-02-19] MEDS: Acetaminophen 325 MG TAB PO ×3 (09:21→20:27)
--- NOTE | 2021-02-19 09:27 | CMPROGNOTE_ITS ---
- If Service Date Differs Date of service: 02/19/21 Time of Service: 09:27 Care Management Progress Note S/O: Mary Jane was sitting up on the side of the bed when CM met with her. She continues to appear short of breath but subjectively feels better. Mary Jane had a palliative care consult today. Her daughter expressed to CM yesterday that she felt Mary Jane might be ready for comfort measures but this does not align with Mary Jane's wishes. She informed both CAILIN and Karmen Tang APRN from [facility], that she just wants to go back and live at her daughter's. She is a DNR/DNI already but wishes to continue treatment for her many illnesses with the hopes of gaining strength and improving her quality of life. A: Mary Jane is an 80 year old woman admitted with hypoxic respiratory failure P:Mary Jane will likely be discharged home with a resumption of home health services for OT, PT and nursing. She will follow up with her new provider and discharge plan of care and transport with her daughter. CM will continue to support Mary Jane and her daughter and assess for discharge concerns.
--- NOTE | 2021-02-19 09:27 | W.PM.PROGNOT ---
Date of Service Date of service: 02/19/21 Time of Service: : Assessment and Plan Assessment and plan (1) Hypertension: Status: Acute Assessment and plan: Wide variations recorded; SBP 130's to 170 most recently. Cont Lisinopril 40mg daily. (2) Acute respiratory failure with hypoxia and hypercarbia: Status: Acute Assessment and plan: Initially placed on BiPAP but tolerated only for short periods. Subsequently on hi-flow O2. Now on nasal cannula at 3L Improving (3) Steroid-induced hyperglycemia: Status: Acute (4) Acute exacerbation of chronic obstructive pulmonary disease (COPD): Status: Acute Assessment and plan: Likely acute bronchitis as etiology. Cont IV solu-medrol 60mg Q12 with plan to possibly d/c tomorrow or Monday on oral prednisone. Change to oral doxycyline 100mg BID for 5 day course. Change from prn albuterol neb to home Xopenex prn Santana Duonebs to TID. Restart flash Spiriva Cont Symbicort (5) Tobacco dependence syndrome: Status: Chronic Assessment and plan: Declines nicotine replacement tx. States that she will probably smoke in my grave. Subjective Subjective Patient reports: feels better, tolerating a regular diet, shortness of breath and afebrile; denies nausea and vomiting Exam Const General: cooperative and no acute distress Nutritional Appearance: obese Orientation: alert and oriented x3 Resp Effort & Inspection: normal respiratory effort Auscultation: diminished lung sounds and wheezes expiratory wheezes (coarse and bilateral) Cardio Rate: regular rate Rhythm: regular rhythm Heart Sounds: S1 normal and S2 normal GI Palpation: soft and nontender Extrem General: no calf tenderness and edema Laterality: bilateral (trace) Objective Last Vital Signs Temp 36.5 C 02/19/21 07:36 Pulse 89 02/19/21 07:36 Resp 19 02/19/21 07:36 BP 159/84 H 02/19/21 07:36 Pulse Ox 97 02/19/21 07:36 Laboratory Results - last 24 hr 02/18/21 02/19/21 02/19/21 06:24 06:10 06:10 WBC 10.45 D RBC 3.48 L Hgb 11.1 L Hct 32.9 L MCV 94.5 MCH 31.9 MCHC 33.7 RDW 13.3 Plt Count 245 MPV 9.0 Sodium Potassium Chloride Carbon Dioxide Anion Gap BUN Creatinine Estimated GFR/1.73 m2 Glucose Calcium Magnesium 1.2 L 1.8 02/19/21 06:10 WBC RBC Hgb Hct MCV MCH MCHC RDW Plt Count MPV Sodium 123 L* Potassium 5.0 Chloride 83 L Carbon Dioxide 39.9 H Anion Gap 0.1 L BUN 11 Creatinine 0.8 Estimated GFR/1.73 m2 >= 60.00 Glucose 152 H Calcium 9.1 Magnesium
[2021-02-19] MEDS: Tiotropium Bromide-Respimat 10 PUFF INH 2 PUFF IH (11:19)
[2021-02-19] MEDS: traMADol 50 MG TAB PO (15:46)
--- NOTE | 2021-02-19 15:56 | PCNE_ITS ---
Date of service: 02/19/21 Time of Service: 15:45 History of Present Illness History of Present Illness Chief Complaint: SOB Narrative: Mary Jane is an 80 year old female with a past medical history significant for COPD with chronic respiratory failure who continues to smoke, CHF, HTN, anxiety/depression, hyperlipidemia, hyponatremia, who is currently being treated for CHF exacerbation and COPD exacerbation. Palliative care was consulted to discuss goals of care. Mary Jane was seen in her hospital room. Her goals are to be able to get around while she can, stay living with her daughter. She does not like being in the hospital. She has home health coming in and helping with shower. She is waiting for PT/OT/RN/NETWORK SUPPORT TECHNICIAN. The home health services are new. She thinks it will be enough help for her daughter to keep her home. She plans on being discharged home tomorrow. She does not want to go to a assisted. She does not have SOB at baseline, she is on inogen at home at 3-4 lpm continuously. She reports that her SOB has improved since she was admitted, she wheezes all of the time, she has a cough, but no cough at baseline. She is able to dress herself, her daughter gets her meals for her. She does not sleep well at night, this is a recent change. She had a ROBERTS and neck pain, the pain has resolved since she had tramadol. She is eating and drinking. She thinks she has lost some weight. She has had diarrhea today, which has resolved. She had some incontinence. She has some urinary incontinence at home. she denies falls at home. 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 Assessment and Plan Assessment and plan (1) Acute respiratory failure with hypoxia and hypercarbia: Status: Acute (2) Chronic respiratory failure with hypoxia: Status: Chronic (3) Acute exacerbation of CHF (congestive heart failure): Status: Acute Qualifiers: Heart failure type: unspecified Qualified Code(s): I50.9 - Heart failure, unspecified (4) Acute exacerbation of chronic obstructive pulmonary disease (COPD): Status: Acute (5) Mixed anxiety and depressive disorder: Status: Chronic (6) Tobacco dependence syndrome: Status: Chronic (7) Palliative care patient: Status: Acute Assessment and plan: Mary Jane is an 80 year old female with a past medical history significant for COPD with chronic respiratory failure who continues to smoke, CHF, HTN, anxiety/depression, hyperlipidemia, hyponatremia, who is currently being treated for CHF exacerbation and COPD exacerbation. Palliative care was consulted to discuss goals of care. She has previously established that she is a DNR/DNI, this was reviewed today, she remains clear on this. She states her daughter has paperwork at home that r eflects her wishes. She is clear that she does not want to go to a SNF, she wants to return home w ith her daughter. She has new HH services which she thinks will be enough help for her daughter. Her goal at this point is to get stronger and be able to get around independently. She is looking forward to PT and OT at home. She is open to Palliative continuing to follow her in the community after her discharge home from the hospital. Will have the palliative office call to set up home visit after discharge. Review of Systems All systems reviewed & are unremarkable except as noted in HPI and below PFSH Medical History (Updated 02/19/21 @ 16:20 by Karmen Tang NP) Alcohol abuse Arthritis Back pain Bilateral sensorineural hearing loss CHF (congestive heart failure) 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 Cancer Stroke Father , 90's Diabetes Heart disease Hyperlipidemia Sister , 60's Diabetes Social History Smoking/Tobacco Use Status: Current every day Tobacco Type: cigarettes Tobacco: How many years used: 60 Second Hand Exposure: Yes Smoking risk assessment performed?: Yes Alcohol Intake: current Alcohol Intake frequency: holidays/special occasions only Drug use: Socially Substance use type: does not use Caregiver/Support person: Yes Pets and animals: Yes Pets and animals: dog(s) Sexually active: No What is your relationship status?: How often do you talk on the phone with friends or family?: twice per week How often do you get together with friends or relatives?: never How often do you attend orthodoxy or jehovah's witness services?: decline to answer Do you belong to any clubs or organized social groups?: no Panel score (0-1 are the most socially isolated patients): 0 What type of physical activity do you participate in: none [place]/Taoism: Shinto Seatbelt use: sometimes Helmet use: No Drive intox or ride w/intox special needs bus driver: No Do you feel safe at home: Yes Do you feel safe in your relationship?: Yes Exam Narrative Exam Narrative: General: elderly female, sitting at the edge of her bed, awake, alert and oriented. Pleasant. HEENT: normocephalic, atraumatic, makes eye contact, pupils equal and round, mucous membranes moist. Neck: supple. Cardiovascular: heart sounds regular, tachycardic. Respiratory: appears mildly SOB while talking, fine rales to bases, expiratory wheezes throughout. GI: +BS, soft, nontender on palpation, nondistended. Extremities: +1 edema to RLE, trace edema to LLE. Results Last Vital Signs Temp 36.5 C 02/19/21 07:36 Pulse 100 H 02/19/21 15:45 Resp 16 02/19/21 14:56 BP 159/84 H 02/19/21 07:36 Pulse Ox 100 02/19/21 14:56 Labs Result diagrams: 02/19/21 06:10 02/19/21 06:10 Labs: Laboratory Results - last 24 hr 02/19/21 02/19/21 02/19/21 06:10 06:10 06:10 WBC 10.45 D RBC 3.48 L Hgb 11.1 L Hct 32.9 L MCV 94.5 MCH 31.9 MCHC 33.7 RDW 13.3 Plt Count 245 MPV 9.0 Sodium 123 L* Potassium 5.0 Chloride 83 L Carbon Dioxide 39.9 H Anion Gap 0.1 L BUN 11 Creatinine 0.8 Estimated GFR/1.73 m2 >= 60.00 Glucose 152 H Calcium 9.1 Magnesium 1.8
[2021-02-19] MEDS: Doxycycline Hyclate 100 MG CAP PO (20:27)
[2021-02-20] VITALS (9 sets, daily range): BP systolic 131–156; BP diastolic 71–84; PULSE 71–107; RESP 1–20; TEMP 36.3–36.9; O2SAT 91–100
[2021-02-20] MEDS: Lisinopril 20 MG TAB 40 MG PO (07:39)
[2021-02-20] MEDS: Doxycycline Hyclate 100 MG CAP PO ×2 (07:39→20:45)
[2021-02-20] MEDS: Magnesium Oxide 400 MG TAB PO ×2 (07:40→20:45)
[2021-02-20] MEDS: Insulin Aspart 300 UNITS/3 ML PEN SC (07:40)
[2021-02-20] MEDS: Furosemide 40 MG TAB PO (07:40)
[2021-02-20] MEDS: Enoxaparin 40 MG/0.4 ML SYR SC (07:40)
[2021-02-20] MEDS: Albuterol/Ipratropium 3 ML UPD VIAL UPD (09:46)
[2021-02-20] MEDS: Budesonide/Formoterol 80/4.5 6.9 GM 60 PUFF INH IH ×2 (09:49→20:46)
--- NOTE | 2021-02-20 10:27 | PDOC.CMPRO ---
- If Service Date Differs Date of service: 02/20/21 Time of Service: 10:27 Care Management Progress Note S/O: Per provider, Mary Jane is improving but continues to meet inpatient level of care. She remains on 2L of O2. An exercise oximetry is ordered for today but is unable to be done. It is rescheduled for tomorrow. Mary Jane is transitioned back to PO steroids today with an anticipated discharge home on Monday. CM will continue to follow. A: Mary Jane is an 80 year old woman admitted with hypoxic respiratory failure P: No change in plan. Mary Jane will likely be discharged home with a resumption of home health services for OT, PT and nursing. She will follow up with her new provider and discharge plan of care and transport with her daughter. CM will continue to support Mary Jane and her daughter and assess for discharge concerns.
[2021-02-20] MEDS: Pantoprazole 40 MG TABCR PO (11:43)
[2021-02-20] MEDS: LORazepam 0.5 MG TAB PO ×2 (11:43→20:45)
--- NOTE | 2021-02-20 12:33 | PT.INNT ---
Date of service: 02/20/21 Time of Service: 12:33 PT Notes Visit Reasons: hypoxic respratory failure Patient was seen earlier before lunch and was not available for evaluation. She is agreeable to being seen tomorrow morning instead. Thank you for the opportunity to participate in the care of this patient. Luzmaria Castro PT, DPT, CLT [facility] [place], [place]
--- NOTE | 2021-02-20 15:24 | W.PM.PROGNOT ---
Date of Service Date of service: 02/20/21 Time of Service: 15:24 Assessment and Plan Assessment and plan (1) Acute exacerbation of chronic obstructive pulmonary disease (COPD): Status: Acute Assessment and plan: Switch to PO steroids. Continue empiric doxycycline. Add mucinex. Transition from albuterol to xopenex. Atrovent scheduled. Continue symbicort. Check exercise oximetry (2) Acute respiratory failure with hypoxia and hypercarbia: Status: Resolved Assessment and plan: No longer requiring BiPAP. Now on 2L of O2 which is better than her baseline O2 requirement (4L). Check ambulatory pulse ox. (3) Mixed anxiety and depressive disorder: Status: Chronic Assessment and plan: with episodes of anxiety/panic attacks. Continue prn lorazepam. albuterol d/c'ed. (4) Tobacco dependence syndrome: Status: Chronic Assessment and plan: Refuses nicotine replacement. (5) DVT prophylaxis: Status: Acute Assessment and plan: SC lovenox (6) Discharge planning issues: Status: Acute Assessment and plan: DNR/DNI Anticipate discharge home tomorrow Subjective Subjective Interval history since last seen: Feels better and thinks she will be able to go home tomorrow. Continues to wheeze - states wheezing to some extent is normal for her. Her o2 sat was 97% on 2L today. Evidently, she refused her oxygen walk today, but agrees to have it now. Denies dizziness, chest pain, shortness of breath, nausea. Feels anxious - states albuterol makes her feel this way. We discussed how it has been discontinued today and she is being switched to xopenex prn and atrovent nebs. Exam Narrative Exam Narrative: General: Anxious elderly female who is playing cards by herself, A&Ox3, NAD HEENT: EOMI, MMM Heart: RRR, no m/r/g Lungs: expiratory wheezing B, which partially clears with coughing Abdomen: abdomen soft, nontender, nondistended Extremities: +1 BLE edema Objective Last Vital Signs Temp 36.9 C 02/20/21 11:55 Pulse 86 02/20/21 11:55 Resp 18 02/20/21 11:55 BP 131/75 02/20/21 11:55 Pulse Ox 96 02/20/21 11:55
[2021-02-20] MEDS: guaiFENesin 600 MG TABCR PO ×2 (15:52→20:46)
[2021-02-20] MEDS: Acetaminophen 325 MG TAB PO (20:45)
[2021-02-20] MEDS: predniSONE 20 MG TAB 40 MG PO (20:46)
[2021-02-20] MEDS: Normal Saline Flush 10 ML SYR IVP (20:51)
[2021-02-21] VITALS (11 sets, daily range): BP systolic 132–172; BP diastolic 66–95; PULSE 82–122; RESP 1–26; TEMP 36.3–36.9; O2SAT 83–98
[2021-02-21] MEDS: Lidocaine 5% Patch 1 PATCH TP ×2 (00:14→21:32)
[2021-02-21] MEDS: Pantoprazole 40 MG TABCR PO (07:17)
[2021-02-21] MEDS: Normal Saline Flush 10 ML SYR IVP ×2 (07:36→13:54)
[2021-02-21 07:37] LABS: Abs Immature Grans 0.04 10^3/uL (0.0-0.06); Absolute Eosinophil Count 0.01 10^3/uL (0.0-0.7); Absolute Lymphocyte Count 0.34 10^3/uL (1.2-3.4); Absolute Monocyte Count 0.43 10^3/uL (0.1-0.8); Eosinophils % 0.1; HCT 32.8 % (36.0-46.0); Immature Grans % 0.4; Lymphocytes % 3.4; MCH 32.4 pg (27.0-33.0); MCHC 33.5 % (32.0-36.0); MCV 96.8 fL (80-95); MPV 9.2 fL (8.0-11.0); Monocytes % 4.3; Neutrophils % 91.8; Nucleated RBC 0 %; Platelet Count 247 10^3/uL (130-400); RBC 3.39 10^6/uL (3.93-5.22); RDW 13.4 % (11.7-14.6); RDW-SD 48.5 fL; WBC 10.02 10^3/uL (4.4-10.8)
[2021-02-21] MEDS: guaiFENesin 600 MG TABCR PO ×2 (07:37→20:26)
[2021-02-21] MEDS: Doxycycline Hyclate 100 MG CAP PO ×2 (07:37→20:26)
[2021-02-21] MEDS: predniSONE 20 MG TAB 40 MG PO ×2 (07:37→20:26)
[2021-02-21] MEDS: Magnesium Oxide 400 MG TAB PO ×2 (07:37→20:26)
[2021-02-21] MEDS: Lisinopril 20 MG TAB 40 MG PO (07:37)
[2021-02-21] MEDS: Enoxaparin 40 MG/0.4 ML SYR SC (07:38)
[2021-02-21] MEDS: Furosemide 40 MG TAB PO ×2 (07:38→15:55)
[2021-02-21] MEDS: Patch Removal 1 EACH TP (07:41)
[2021-02-21 07:57] LABS: CREATININE 0.8 mg/dL (0.55-1.02); Calcium 9.3 mg/dL (8.5-10.1); Chloride 88 mmol/L (98-107); Glucose 124 mg/dL (74-106); Magnesium 1.7 mg/dL (1.8-2.4); Potassium 4.7 mmol/L (3.5-5.1); Sodium 128 mmol/L (136-145)
[2021-02-21 08:11] LABS: BUN 21 mg/dL (7-18)
[2021-02-21] MEDS: Ipratropium 0.5 MG/2.5 ML UPD VIAL UPD ×3 (08:24→20:26)
[2021-02-21] MEDS: Budesonide/Formoterol 80/4.5 6.9 GM 60 PUFF INH IH ×2 (08:29→20:26)
--- NOTE | 2021-02-21 10:27 | IN_ITS ---
Date of service: 02/21/21 Time of Service: 10:27 PT Notes Visit Reasons: hypoxic respratory failure Physical Therapy Inpatient Initial Evaluation Date: 02/21/2021 Referring Doctor: Camille Cage MD PT Orders: PT CONSULT: Limited ability Precautions: Fall. Standard. Activity as tolerated. Patient Profile/Admitting Diagnosis: Mary Jane is an 80-year-old female who presented to the ED on 02/17/2021 with shortness of breath and generalized weakness. She is diagnosed with acute respiratory failure with hypoxia and hypercarbia, chronic obstructive pulmonary disease exacerbation, hyponatremia, tobacco dependence syndrome, and hypertension. PMHX: Medical History (Updated 02/17/21 @ 20:44 by Amish Wells MD) Alcohol abuse Arthritis Back pain Bilateral sensorineural hearing loss CHF (congestive heart failure) Chronic frontal sinusitis Chronic maxillary sinusitis Chronic middle ear effusion Chronic respiratory failure with hypoxia Compression fracture of spine COPD (chronic obstructive pulmonary disease) GERD (gastroesophageal reflux disease) Hearing loss, bilateral Hyperlipidemia Hypertension Hyponatremia (07/20/14) Mass of right lung Mixed anxiety and depressive disorder Osteoporosis Psychiatric problem Tobacco abuse Surgical History (Updated 02/05/21 @ 19:45 by Camille Cage MD) H/O arthroscopy of left knee H/O cataract removal with insertion of prosthetic lens H/O pneumonectomy For histoplasmosis S/P colonoscopy Social History/Home Situation: Lives with daughter in a private home with a ramp to enter. Independent with all mobility ADL performance using a 4 wheeled walker prior to admission. 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 Equipment Owned/DME: 4-wheeled walker, front-wheeled walker, bedside commode Subjective: Agreeable to PT consult however refused to go for another walk as she just got done with gait oximetry with the respiratory therapist and is now fatigued. Mildly short of breath. Denies pain, chest pain, dizziness, and headache throughout session. Adamant about going home today. Objective: General Observation: Mild S OB. Sitting at edge of bed. Bilateral TEDS on legs. IV in right brachium. Oxygen supplementation at 2 L/min via NC. Mental Status: Alert and oriented as to person, place, time, and purpose. Able to pay attention, focus, and respond appropriately. Pain: 0/10 in ROM: Right Upper Extremity: Shoulder Flexion lacks the last 20 degrees of active range of motion. Shoulder abduction lacks the last 20 degrees of active range of motion. Shoulder ER/IR WFL. Elbow flexion WFL. Forearm pronation/supination WFL. Wrist flexion WFL. Opening and closing of hand WFL. Left Upper Extremity: Shoulder Flexion WFL. Shoulder abduction WFL. Shoulder ER/IR WFL. Elbow flexion WFL. Forearm pronation/supination WFL. Wrist flexion WFL. Opening and closing of hand WFL. Right Lower Extremity: Hip flexion WFL. Hip abduction WFL. Hip ER/IR WFL. Knee flexion WFL. Knee extension. Ankle dorsiflexion/eversion WFL. Ankle plantarflexion/inversion WFL. Left Lower Extremity: Hip flexion WFL. Hip abduction WFL. Hip ER/IR WFL. Knee flexion WFL. Knee extension. Ankle dorsiflexion WFL. Ankle plantarflexion WFL. Strength: Right Upper Extremity: Shoulder flexors 3-/5. Shoulder abductors 3-/5. Shoulder ER 4/5. Shoulder IR 4/5. Forearm pronators 4/5. Forearm supinators 4/5. Elbow flexors 4/5. Elbow extensors 4/5. Radiologic Tech strong. Left Upper Extremity: Shoulder flexors 4-/5. Shoulder abductors 4-/5. Shoulder ER 4/5. Shoulder IR 4/5. Forearm pronators 4/5. Forearm supinators 4/5. Elbow flexors 4/5. Elbow extensors 4/5. Radiologic Tech strong. Right Lower Extremity: Hip flexors 4-/5. Hip abductors 4-/5. Hip external rotators 4-/5. Hip internal rotators 4-/5. Knee flexors 4-5. Knee extensors 4-/5. Ankle dorsiflexors/evertors 4-/5. Ankle plantarflexors/invertors 4-/5. Left Lower Extremity: Hip flexors 4-/5. Hip abductors 4-/5. Hip external rotators 4-/5. Hip internal rotators 4-/5. Knee flexors 45. Knee extensors 4/5. Ankle dorsiflexors/evertors 4-/5. Ankle plan tarflexors/invertors 4-/5. Bed Mobility/Transfers: Rolling independent Supine to sit independent Sit to supine independent Sit to stand independent Stand to sit independent Bed to chair supervision Chair to bed supervision Gait: Gait oximetry was performed by respiratory therapist immediately preceding PT evaluation with patient covering about 200 feet of level surface ambulation using front wheeled walker with full weight bearing requiring standby assist with 2 L of oxygen per minute via NC. Patient refused to go for another work. Balance: Static Sitting: Normal Dynamic Sitting: Normal Static Standing: Good Dynamic Standing: Fair Special Tests: Mobility Limitations Standardized Measure [facility] AM-PAC 6 clicks Basic Mobility Inpatient Short Form: Raw Score: 22 CMS Score: 21% deficit 4-Stage balance test: Able to maintain feet together for 10 seconds but is unable to hold semi-tandem, full tandem, and 1 legged stance for 10 seconds indicating a risk for falls the use of an assistive ambulatory device. Informed Consent/Education: Patient was instructed in purpose of PT consult and plan of care. Agreeable to proceed with established PT POC to achieve personal goals. Assessment: Firm about wanting to go home today. Mary Jane continues to require the use of a front-wheel walker for all mobility ADL performance to reduce fall risk, increase activity tolerance, and maximize independence. She will have the support of her daughter at home and she is agreeable to having home health PT follow through with functional mobility retraining at home. Patient presents with clinical signs and symptoms consistent with current/admitting diagnoses that have resulted to mobility limitations, gait instability, generalized weakness, and impairment of motor control as demonstrated by the following impairment level findings: 1. Decreased strength to right LE major muscle groups 2. Impaired standing balance 3. Impaired activity tolerance requiring the use of oxygen supplementation continuously 4. Limitation of joint range of motion in right shoulder Impairments are contributing to the following functional limitations: 1. Inability to safely ambulate without assistive device 2. Increase completion time for mobility ADL performance 3. Increased fall risk Patient is assessed as a 33696 moderate complexity based on the following: History: 80-year-old female with past medical history as indicated above Examination: Demonstrable impairment in strength, balance, and mobility level with underlying impairments and functional limitations as exhibited above as well as deficit score of 21% utilizing the [facility] Mobility Inpatient Short Form Presentation: Evolving Decision Makin moderate complexity Goals: Goals X1 week 1. Bed-Chair independent 2. Chair-Bed independent 3. Independent gait on level surface with use of 4 wheeled walker for at least 300 feet without report of pain nor dyspnea 4. Good static and dynamic standing balance/tolerance Plan of Care/Treatment Plan: 1-2x/day, 7 days/week x 1 week. Plan of care has been reviewed with the LINING STRAP CLOSER providing the service under Physical Therapy direction. Initiate Physical Therapy intervention for pain management as needed, strengthening, bed mobility, transfers, gait, stairs, balance training, and use of assistive device. DISCHARGE RECOMMENDATIONS: Home when medically cleared by hospitalist. Patient will benefit from home health PT services in order to progress mobility level using least restrictive assistive ambulatory device, assess home safety, identify additional equipment needs, and establish a functional maintenance program that will increase ability of patient to remain at home. TREATMENT CODE/TIME: 9716 2 x 18 minutes beginning at 10:27 AM. Thank you for the opportunity to participate in the care of this patient. Luzmaria Castro PT, DPT, CLT [facility] [place], [place]
[2021-02-21] MEDS: MAGNESIUM SULFATE 2 GM/50 ML BAG IVPB (10:50)
--- NOTE | 2021-02-21 14:08 | W.PM.PROGNOT ---
Date of Service Date of service: 02/21/21 Time of Service: 14:08 Assessment and Plan Assessment and plan (1) Acute exacerbation of chronic obstructive pulmonary disease (COPD): Status: Acute Assessment and plan: Continue PO steroids. Continue empiric doxycycline. Continue mucinex. Continue prn xopenex and scheduled atrovent. Continue symbicort. Repeat exercise oximetry in am (2) Acute on chronic respiratory failure with hypoxia and hypercapnia: Status: Acute Assessment and plan: requiring 6L of O2 on ambulation. This may not be that far from the patient's actual baseline. We are researching how much O2 the patient can get with the equipment she has at home (there is a concern that it may not go all the way up to 6L). Will give an extra dose of lasix to ensure that fluid overload is not contributing to O2 requirement. (3) Hyponatremia: Status: Acute Assessment and plan: Improved. ?dilutional vs adrenal insufficiency. Continue lasix (will get extra dose today). On lisinopril - could be contributing to hyponatremia as well. Will need a slow steroid taper. (4) Mixed anxiety and depressive disorder: Status: Chronic Assessment and plan: with episodes of anxiety/panic attacks. Continue prn lorazepam. albuterol d/c'ed. (5) Tobacco dependence syndrome: Status: Chronic Assessment and plan: Refuses nicotine replacement. (6) Hypomagnesemia: Status: Acute Assessment and plan: Replete and recheck in am (7) DVT prophylaxis: Status: Acute Assessment and plan: SC lovenox (8) Discharge planning issues: Status: Acute Assessment and plan: DNR/DNI Anticipate discharge home tomorrow Subjective Subjective Interval history since last seen: Ms Lam states she is feeling better. However she is requiring 4L at rest and 6L of O2 with exertion today. She has a hard time understanding that she is still sick and not ready to go home. She denies dizziness, chest pain, shortness of breath, nausea. She would like to go home today or tomorrow - agrees to wait until tomorrow. Exam Narrative Exam Narrative: General: Anxious elderly female who is playing cards by herself, A&Ox3, NAD HEENT: EOMI, MMM Heart: RRR, no m/r/g Lungs: expiratory wheezing B, which partially clears with coughing Abdomen: abdomen soft, nontender, nondistended Extremities: +1 BLE edema Objective Last Vital Signs Temp 36.9 C 02/21/21 11:34 Pulse 83 02/21/21 11:34 Resp 21 02/21/21 11:34 BP 163/85 H 02/21/21 11:34 Pulse Ox 93 02/21/21 11:34 Laboratory Results - last 24 hr 02/21/21 02/21/21 06:31 06:31 WBC 10.02 RBC 3.39 L Hgb 11.0 L Hct 32.8 L MCV 96.8 H MCH 32.4 MCHC 33.5 RDW 13.4 Plt Count 247 MPV 9.2 Immature Gran % 0.4 Neutrophils % 91.8 Lymphocytes % 3.4 Monocytes % 4.3 Eosinophils % 0.1 Basophils % 0.0 Nucleated RBC % 0 Absolute Neutrophils 9.20 H Absolute Lymphocytes 0.34 L Absolute Monocytes 0.43 Absolute Eosinophils 0.01 Absolute Basophils 0.00 Sodium 128 L Potassium 4.7 Chloride 88 L Carbon Dioxide 38.0 H Anion Gap 2.0 L BUN 21 H D Creatinine 0.8 Estimated GFR/1.73 m2 >= 60.00 Glucose 124 H Calcium 9.3 Magnesium 1.7 L
--- NOTE | 2021-02-21 14:26 | PHA.REVIEW ---
Pharmacy Admission Review - Admission Clinical Review (Last Updated 02/19/21 @ 16:20 by Karmen Tang NP) Palliative care patient (Acute) Hypertension (Acute) D-dimer, elevated (Acute) Discharge planning issues (Acute) DVT prophylaxis (Acute) Steroid-induced hyperglycemia (Acute) Acute exacerbation of CHF (congestive heart failure) (Acute) Acute exacerbation of chronic obstructive pulmonary disease (COPD) (Acute) Hyponatremia (Acute 07/20/14) COPD with exacerbation (Acute 07/20/14) celecoxib [From Celebrex] Allergy (Unknown, Verified 02/17/21 13:29) NSAIDS (Non-Steroidal Anti-Inflamma Allergy (Unknown, Verified 02/17/21 13:29) [id number] Reductase Inhibitor Allergy (Unknown, Verified 02/17/21 13:29) Sulfa (Sulfonamide Antibiotics) Allergy (Unknown, Verified 02/17/21 13:29) unknown Height 5 ft 6 in Weight 86.02 kg - Renal Dosing Renal Dosing: BUN 21 mg/dL (7-18) H D 02/21/21 06:31 Creatinine 0.8 mg/dL (0.55-1.02) 02/21/21 06:31 Medications needing adjustments: Reviewed - Anticoagulation Anticoagulation: Hgb 11.0 g/dL (11.2-15.7) L 02/21/21 06:31 Hct 32.8 % (36.0-46.0) L 02/21/21 06:31 Plt Count 247 10^3/uL (130-400) 02/21/21 06:31 INR 1.0 (0.9-1.1) 02/17/21 12:25 Creatinine 0.8 mg/dL (0.55-1.02) 02/21/21 06:31 DVT Prohphylaxis: Reviewed Medications: Enoxaparin - Opiate Usage Evaluate Pain Scale/Pains Meds: N/A Scheduled Bowel Reg ordered if on Opiates?: No (has been having BMs) - Relevant Labs Sodium 128 mmol/L (136-145) L 02/21/21 06:31 Potassium 4.7 mmol/L (3.5-5.1) 02/21/21 06:31 Chloride 88 mmol/L (98-107) L 02/21/21 06:31 Magnesium 1.7 mg/dL (1.8-2.4) L 02/21/21 06:31 Electrolytes, C-Reactive P, ESR: Reviewed (2 gm iv mag today) - DM Control DM Control: Glucose 124 mg/dL (74-106) H 02/21/21 06:31 Finger Stick Blood Glucose 134 Finger Stick Blood Glucose 134 Finger Stick Blood Glucose 122 Finger Stick Blood Glucose 122 Finger Stick Blood Glucose 122 Insulin Dosing: Reviewed (SS aspart) - Heart Failure/TX Heart Failure/TX: Troponin I < 0.05 ng/mL (<0.06) 02/17/21 16:45 NT-Pro-B Natriuret Pep 598 pg/mL (<300) H 02/17/21 12:25 EF%, STEPHANIE's, B-Blockers, Diuretics: Reviewed - BP Control BP Control: Blood Pressure 163/85 Blood Pressure 172/95 Blood Pressure 163/78 If elevated: Reviewed - Qtc Review If Elevated: Reviewed - IV to PO Switch IV Medications: Reviewed - Home Meds Home Med List reviewed: Reviewed Relevent Home Meds Not ordered & why?: rolandoiresp - pt reports not having for <1 mo, spiriva - was ordered but then cancelled I believe due to scheduled duonebs - Current meds Current Medication Order Review: Reviewed (duonebs changed to atrovent, furosemide increase due to fluid overload concerns - could be affecting O2 requirement) - Comments Comments/Follow Ups: cont to monitor BMP, switch to LAMA
--- NOTE | 2021-02-21 16:23 | PDOC.CMPRO ---
- If Service Date Differs Date of service: 02/21/21 Time of Service: 16:23 Care Management Progress Note S/O: No change in plan. Per provider, Mary Jane had a walking oximetry test today. She is requiring 6L of O2 with ambulation and 4L at rest. Mary Jane had hoped to be discharged home today, but per provider, she is not yet ready for discharge. Mary Jane is agreeable to remaining inpatient for one more day. CM will continue to follow. A: Mary Jane is an 80 year old woman admitted with hypoxic respiratory failure P: Plan remains for Mary Jane to be discharged home with a resumption of home health services for OT, PT and nursing. She will follow up with her new provider and discharge plan of care and transport with her daughter. CM will continue to support Mary Jane and her daughter and assess for discharge concerns.
[2021-02-21] MEDS: traMADol 50 MG TAB PO (16:51)
[2021-02-21] MEDS: LORazepam 0.5 MG TAB PO (20:26)
[2021-02-22 03:48] VITALS: RESP 18; TEMP 36.6; O2SAT 98
[2021-02-22 08:03] VITALS: BP 130/71; PULSE 71; RESP 18; TEMP 36.1; O2SAT 98
[2021-02-22] MEDS: predniSONE 20 MG TAB 40 MG PO (08:29)
[2021-02-22] MEDS: Doxycycline Hyclate 100 MG CAP PO (08:29)
[2021-02-22] MEDS: guaiFENesin 600 MG TABCR PO (08:29)
[2021-02-22] MEDS: Pantoprazole 40 MG TABCR PO (08:29)
[2021-02-22] MEDS: Lisinopril 20 MG TAB 40 MG PO (08:29)
[2021-02-22] MEDS: Magnesium Oxide 400 MG TAB PO (08:29)
[2021-02-22] MEDS: Furosemide 40 MG TAB PO (08:29)
[2021-02-22] MEDS: Enoxaparin 40 MG/0.4 ML SYR SC (08:29)
[2021-02-22] MEDS: Patch Removal 1 EACH TP (08:30)
[2021-02-22 09:20] LABS: Anion Gap 4.5 mmol/L (3-11); BUN 24 mg/dL (7-18); CO2 36.5 mmol/L (21.0-32.0); CREATININE 1.1 mg/dL (0.55-1.02); Calcium 8.9 mg/dL (8.5-10.1); Chloride 88 mmol/L (98-107); Estimated GFR 47.79 (mL/min/1.73m2); Glucose 168 mg/dL (74-106); Potassium 4.1 mmol/L (3.5-5.1); Sodium 129 mmol/L (136-145)
[2021-02-22] MEDS: Budesonide/Formoterol 80/4.5 6.9 GM 60 PUFF INH IH (10:06)
[2021-02-22 10:15] VITALS: PULSE 109; PULSE 80; PULSE 90; RESP 18; RESP 23; RESP 24; O2SAT 84; O2SAT 91; O2SAT 97
--- NOTE | 2021-02-22 10:54 | PT.INNT ---
Date of service: 02/22/21 Time of Service: 10:54 PT Notes Visit Reasons: hypoxic respratory failure 02/22/2021 Patient refused to participate in PT, stating I just went for a walk. She hopes to discharge to home later today.
[2021-02-22 11:15] VITALS: BP 131/80; PULSE 76; RESP 18; TEMP 36.5; O2SAT 97
[2021-02-22] MEDS: Insulin Aspart 300 UNITS/3 ML PEN SC (11:36)
--- NOTE | 2021-02-22 12:13 | RESPIRATORY ---
RT spoke with patient and patient's daughter concerning oxygen requirement and home equipment. Patient currently gets oxygen equipment from [employer] (which was started for her when she lived in [place]). Pt's daughter states that they have plenty of supplies at home for both the home concentrator and the portable system. I offered to send information and prescription to a local DME such as [facility] or [facility] but both patient and daughter did not want that. I suggested that, should they need supplies or have concerns in the future, they follow up with the patient's primary care provider for home oxygen needs. This information was relayed to hospitalist.
--- NOTE | 2021-02-22 12:52 | W.PM.DS.N ---
Date of service: 02/22/21 Time of Service: 12:52 DS: Diagnosis Discharge Diagnosis (1) Acute exacerbation of chronic obstructive pulmonary disease (COPD): Start date: 02/22/21 Start time: 12:52 Status: Acute Asessment and Plan: Will continue steroids and taper along with doxy for a total of 10 days continue mucinex continue home oxygen at baseline at this time per respiratory (2) Acute on chronic respiratory failure with hypoxia and hypercapnia: Start date: 02/22/21 Start time: 14:24 Status: Acute Asessment and Plan: requiring 4 L when ambulating 2 l at rest (3) Hyponatremia: Start date: 02/22/21 Start time: 14:28 Status: Chronic Asessment and Plan: baseline (4) Mixed anxiety and depressive disorder: Start date: 02/22/21 Start time: 14:28 Status: Chronic Asessment and Plan: with episodes of anxiety/panic attacks. Continue prn lorazepam. takes xoponex at home (5) Tobacco dependence syndrome: Start date: 02/22/21 Start time: 14:30 Status: Chronic Asessment and Plan: refuses to quit smoking (6) Hypomagnesemia: Start date: 02/22/21 Start time: 14:31 Status: Resolved Asessment and Plan: repleted and will continue PO as an outpatient above discussed with Dr. Cage Discharge Plan Disposition Patient Disposition: HOME W/HOME HEALTH SERVICE Condition: Stable Discharge Details Reason For Visit: hypoxic respratory failure Admit Date/Time: 02/17/21 13:42 Admit Provider: Amish Wells Attending Provider: Amish Wells Primary Care Provider: Srinivasa Hamilton Hospital Course Hospital Course: This is an 80-year-old female with multiple medical problems including COPD, CHF, chronic resp failure, COPD, hyponatremia, HLD, tobacco abuse disorder, HTN, alcohol abuse. She present with shortness of breath and generalized weakness. She was hypoxic and tachypneic with GERMAIN and generalized weakness, hypertensive and tachycardic on admission Patient was in critical condition on arrival. She denied F/C, CP. No N/V/abd pain. Patient had significantly elevated work of breathing despite nasal cannula oxygen of 4 L. Concern for COPD/CHF exacerbation. Respiratory therapy administered BiPAP but she did not tolerate it well. A trial high flow nasal cannula was initiated, then, given her level of anxiety, Ativan was administered and she tolerated BiPAP better. EKG showed sinus tachycardia 104 bpm, low voltage noted. Peaked T's laterally. VBG: PCO2 is elevated at 68, pH is normal. BNP was elevated slightly at 598. Her initial troponin was negative. CXR showed chronic interstitial markings but no acute findings. IV solumedrol 125mg given in ED, and she was asked to be admitted for further management. Today she is at baseline oxygen requirements. She is not requiring anymore than her usual 4 L nasal cannula requirements after ambulating and 2 L at rest with RT. Per RT daughter does not want any help from outside oxygen supply companies. They want to continue to order all supplies on their own. She was started on doxy and steroid while in the hospital for bronchitis. Will continue for a total 10 day dosing, she was also started on steroid will taper at home. She was diuresised, also now at baseline and therefore being discharged home. She will have resumption of home health services. Home Meds and New Rx's Prescriptions: New doxycycline hyclate 100 mg Capsule 100 mg PO BID Qty: 10 RF: 0 magnesium oxide 400 mg (241.3 mg magnesium) Tablet 400 mg PO BID Qty: 30 RF: 0 guaifenesin [Mucinex] 600 mg Tablet Extended Release 12hr 600 mg PO BID Qty: 10 RF: 0 famotidine 20 mg tablet 20 mg PO DAILY Qty: 30 RF: 0 prednisone 20 mg tablet 40 mg PO DAILY Qty: 17 RF: 0 Continued furosemide 40 mg tablet 40 mg PO DAILY Qty: 90 RF: 4 lorazepam 0.5 mg tablet 0.5 mg PO BID PRN (Reason: anxiety) Qty: 90 RF: 0 Oxygen EACH NS PRN Qty: 2 RF: 0 levalbuterol tartrate [Xopenex HFA] 15 GM HFA aerosol inhaler 2 puff Inhalation Q4H PRN Qty: 1 RF: 11 lisinopril 40 mg Tablet 40 mg PO DAILY RF: 0 acetaminophen 325 mg Tablet 325 mg PO Q4H PRNRF: 0 lidocaine 4 % Adhesive Patch,Medicated 1 patch TOPICAL DAILY PRNRF: 0 levalbuterol HCl [Xopenex] 1.25 mg/3 mL Solution For Nebulization 1.25 mg INHALATION Q8H PRN PRNRF: 0 Daliresp 500 mcg Tablet 500 mcg PO DAILY RF: 0 Breo Ellipta 100-25 mcg/dose Blister With Device 1 inh INHALATION DAILY RF: 0 Spiriva Respimat 2.5 mcg/actuation Mist 2 puff inhalation DAILY Qty: 1 RF: 0 fluticasone propionate 50 mcg/actuation spray,suspension 2 spray INTRANASAL DAILY RF: 0 Discontinued azithromycin 250 mg Tablet 250 mg PO DAILY Qty: 4 RF: 0 Discharge Instructions Instructions: Doxycycline (By mouth), Heart Failure (DC), How to Stop Smoking (DC), Hyponatremia (DC), Cigarette Smoking and Your Health (GEN), Acute Bronchitis (GEN), COPD (Chronic Obstructive Pulmonary Disease) (DC), Hypomagnesemia (DC), Chronic Respiratory Failure (DC) Additional Instructions: follow up with PCP in 1 week STOP SMOKING, you can blow yourself and your house up while on oxygenc continue the steroids and and antibiotics as prescribed. Stand Alone Forms: Nursing Discharge Form Referrals: Srinivasa Hamilton GEOGRAPHIC INFORMATION SYSTEM SURVEYOR [Primary Care Provider] - (You have an appt coming up with PCP, keep that appt and discuss hospital visit that day) Activity:: Activity as Tolerated Equipment/Supplies:: No Equipment Needed Diet:: Low Sodium Discharge Orders Discharge Orders: Discharge Order (Routine); Ordered 02/22/21 Ordered By: Lynne Garcia Discharge Data Discharge Date/Time-TO BE ENTERED AT DEPARTURE: 02/22/21 13:42 DS: Summary Time Spent with Patient providing and/or coordinating discharge services: Greater than 30 minutes Status at Discharge Functional status at discharge: uses cane/walker Overall status at discharge: patient is back to baseline Mental Status: mental status grossly normal Speech and Movement: speech and movement normal Mood: congruent mood Affect: normal affect Exam Narrative Exam Narrative: General: Anxious elderly female who is playing cards by herself, A&Ox3, NAD HEENT: EOMI, MMM Heart: RRR, no m/r/g Lungs: expiratory wheezing B, which partially clears with coughing, baseline Abdomen: abdomen soft, nontender, nondistended Extremities: +1 BLE edema Psych Mental Status: mental status grossly normal Speech and Movement: speech and movement normal Mood: congruent mood Affect: normal affect DS: Data Vitals/I&O Vitals and I&O: Vital Signs Temperature 36.5 C 02/22/21 11:15 Temperature Source Tympanic 02/22/21 11:15 Pulse 76 02/22/21 11:15 Pulse Rhythm Regular 02/22/21 09:13 Pulse 104 H 02/18/21 20:01 Respiratory Rate 18 02/22/21 11:15 Respiratory Effort Non-Labored 02/22/21 09:13 Respiratory Depth Normal 02/22/21 09:13 Respiratory Pattern Normal 02/22/21 09:13 Blood Pressure 131/80 02/22/21 11:15 Blood Pressure Mean 83 02/18/21 20:01 Blood Pressure Position Sitting 02/18/21 16:15 Pulse Oximetry 97 02/22/21 11:15 Oxygen Delivery Method Nasal Cannula 02/22/21 11:15 Oxygen Flow Rate 3 02/22/21 11:15 Fraction of Inspired Oxygen (FIO2) 40 02/18/21 12:30 Pain Level 0 02/22/21 11:15 Comment 02/19/21 03:49 Intake & Output 02/21/21 02/22/21 02/22/21 23:59 11:59 23:59 Intake Total 240 / 920 490 / 610 120 / 610 Output Total 1150 / 3800 250 / 250 Balance -910 / -2880 240 / 360 120 / 360 Intake: Oral 240 / 920 490 / 610 120 / 610 Output: Urine 1150 / 3800 250 / 250 Other: Urine Color Yellow Yellow Urine Appearance Clear Clear Urine Odor Normal Voiding Methods Bedside Commode Bedside Commode Data Completed and Pending Completed studies during hospitalization [Text1]: Exam(s) XR PORTABLE CHEST AP EXAM: XR PORTABLE CHEST AP CLINICAL HISTORY: difficulty breathing. TECHNIQUE: 2D digital imaging was performed. COMPARISON: CR XR CHEST 2V PA LATERAL from 02/05/2021 FINDINGS: Cardiomegaly again noted. Mediastinum not widened. Calcified granuloma in the right lung is unchanged. Increased markings both lungs interstitial chronic increased markings are unchanged. No new infiltrates nor pleural effusions. IMPRESSION: No acute pulmonary findings on this single AP portable view of the chest.Chronic increased interstitial markings. Labs on day of discharge: Labs from last 24 hours 02/22/21 08:50 Sodium 129 L Potassium 4.1 Chloride 88 L Carbon Dioxide 36.5 H Anion Gap 4.5 BUN 24 H Creatinine 1.1 H Estimated GFR/1.73 m2 47.79 Glucose 168 H Calcium 8.9 PFSH Medical History (Updated 02/22/21 @ 14:31 by Lynne Garcia NP) Alcohol abuse Arthritis Back pain Bilateral sensorineural hearing loss CHF (congestive heart failure) 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 Cancer Stroke Father , 90's Diabetes Heart disease Hyperlipidemia Sister , 60's Diabetes Social History Smoking/Tobacco Use Status: Current every day Tobacco Type: cigarettes Tobacco: How many years used: 60 Second Hand Exposure: Yes Smoking risk assessment performed?: Yes Alcohol Intake: current Alcohol Intake frequency: holidays/special occasions only Drug use: Socially Substance use type: does not use Caregiver/Support person: Yes Pets and animals: Yes Pets and animals: dog(s) Sexually active: No What is your relationship status?: How often do you talk on the phone with friends or family?: twice per week How often do you get together with friends or relatives?: never How often do you attend holiness or alevism services?: decline to answer Do you belong to any clubs or organized social groups?: no Panel score (0-1 are the most socially isolated patients): 0 What type of physical activity do you participate in: none Malgorzata/Jain: Rastafarian Seatbelt use: sometimes Helmet use: No Drive intox or ride w/intox mixer driver: No Do you feel safe at home: Yes Do you feel safe in your relationship?: Yes
--- NOTE | 2021-02-22 13:08 | PDOC.CMDIS ---
- If Service Date Differs Date of service: 02/22/21 Time of Service: 13:08 LACE Index Scoring Tool - Questions: Length of Stay (in days): 4 - 6 Acuity (Admit via E.D.?): Yes Comorbidities: Congestive Heart Failure, Chronic Pulmonary Disease E.D. Visits: 3 - Answers: Total Score: 15 Risk of Readmission: High Risk Care Management Discharge Reason for Hospitalization: Acute respiratory failure with hypoxia Discharge Plan: Mary Jane is discharged home with a resumption of Home Health RN, PT, OT, and TV NEWS DIRECTOR. She will follow up with her PCP and discharge plan of care as directed. She is being driven home via private vehicle by her daughter. Patient/Family Education Needs: Discharge instructions, limitations, follow up plan of care, including Ask Me Three and self management. Services Needed at Discharge: Home Health Care Services (Resumption of RN, PT, OT, and TV NEWS DIRECTOR.), Oxygen Therapy (Resumption of Oxygen Therapy.)
--- NOTE | 2021-02-23 09:50 | INDS_ITS ---
Date of service: 02/23/21 PT Notes Visit Reasons: hypoxic respratory failure Physical Therapy Inpatient Discharge Summary Date: 02/23/2021 Dates of service: 02/21/2021 This is a clinical summary of care provided for the duration of dates listed above. No charge was made in the completion of this documentation. Referring Doctor: Camille Cage MD PT Orders: PT CONSULT: Limited ability Precautions: Fall. Standard. Activity as tolerated. Patient Profile/Admitting Diagnosis: Mary Jane is an 80-year-old female who presented to the ED on 02/17/2021 with shortness of breath and generalized weakness. She is diagnosed with acute respiratory failure with hypoxia and hypercarbia, chronic obstructive pulmonary disease exacerbation, hyponatremia, tobacco dependence syndrome, and hypertension. PMHX: Medical History (Updated 02/17/21 @ 20:44 by Amish Wells MD) Alcohol abuse Arthritis Back pain Bilateral sensorineural hearing loss CHF (congestive heart failure) Chronic frontal sinusitis Chronic maxillary sinusitis Chronic middle ear effusion Chronic respiratory failure with hypoxia Compression fracture of spine COPD (chronic obstructive pulmonary disease) GERD (gastroesophageal reflux disease) Hearing loss, bilateral Hyperlipidemia Hypertension Hyponatremia (07/20/14) Mass of right lung Mixed anxiety and depressive disorder Osteoporosis Psychiatric problem Tobacco abuse Surgical History (Updated 02/05/21 @ 19:45 by Camille Cage MD) H/O arthroscopy of left knee H/O cataract removal with insertion of prosthetic lens H/O pneumonectomy For histoplasmosis S/P colonoscopy Social History/Home Situation: Lives with daughter in a private home with a ramp to enter. Independent with all mobility ADL performance using a 4 wheeled walker prior to admission. 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 Equipment Owned/DME: 4-wheeled walker, front-wheeled walker, bedside commode Subjective: NT. See most recent RADIOLOGY ASST notes. Objective: General Observation: NT. See most recent RADIOLOGY ASST notes. Mental Status: NT. See most recent RADIOLOGY ASST notes. Pain: NT. See most recent RADIOLOGY ASST notes. ROM: Right Upper Extremity: Shoulder Flexion lacks the last 20 degrees of active range of motion. Shoulder abduction lacks the last 20 degrees of active range of motion. Shoulder ER/IR WFL. Elbow flexion WFL. Forearm pronation/supination WFL. Wrist flexion WFL. Opening and closing of hand WFL. Left Upper Extremity: Shoulder Flexion WFL. Shoulder abduction WFL. Shoulder ER/IR WFL. Elbow flexion WFL. Forearm pronation/supination WFL. Wrist flexion WFL. Opening and closing of hand WFL. Right Lower Extremity: Hip flexion WFL. Hip abduction WFL. Hip ER/IR WFL. Knee flexion WFL. Knee extension. Ankle dorsiflexion/eversion WFL. Ankle plantarflexion/inversion WFL. Left Lower Extremity: Hip flexion WFL. Hip abduction WFL. Hip ER/IR WFL. Knee flexion WFL. Knee extension. Ankle dorsiflexion WFL. Ankle plantarflexion WFL. Strength: Right Upper Extremity: Shoulder flexors 3-/5. Shoulder abductors 3-/5. Shoulder ER 4/5. Shoulder IR 4/5. Forearm pronators 4/5. Forearm supinators 4/5. Elbow flexors 4/5. Elbow extensors 4/5. Rock Dust Sprayer strong. Left Upper Extremity: Shoulder flexors 4-/5. Shoulder abductors 4-/5. Shoulder ER 4/5. Shoulder IR 4/5. Forearm pronators 4/5. Forearm supinators 4/5. Elbow flexors 4/5. Elbow extensors 4/5. Rock Dust Sprayer strong. Right Lower Extremity: Hip flexors 4-/5. Hip abductors 4-/5. Hip external rotators 4-/5. Hip internal rotators 4-/5. Knee flexors 4-5. Knee extensors 4-/5. Ankle dorsiflexors/evertors 4-/5. Ankle plantarflexors/invertors 4-/5. Left Lower Extremity: Hip flexors 4-/5. Hip abductors 4-/5. Hip external rotators 4-/5. Hip internal rotators 4-/5. Knee flexors 45. Knee extensors 4/5. Ankle dorsiflexors/evertors 4-/5. Ankle plantarflexors/invertors 4-/5. Bed Mobility/Transfers: Rolling independent Supine to sit independent Sit to supine independent Sit to stand independent Stand to sit independent Bed to chair supervision Chair to bed supervision Gait: Gait oximetry was performed by respiratory therapist immediately preceding PT evaluation with patient covering about 200 feet of level surface ambulation using front wheeled walker with full weight bearing requiring standby assist with 2 L of oxygen per minute via NC. Balance: Static Sitting: Normal Dynamic Sitting: Normal Static Standing: Good Dynamic Standing: Fair Assessment: Mary Jane continues to require the use of a front-wheel walker for all mobility ADL performance to reduce fall risk, increase activity tolerance, and maximize independence. She will have the support of her daughter at home and she is agreeable to having home health PT follow through with functional mo bility retraining at home. Patient continues to present with clinical signs and symptoms consistent with current/admitting diagnoses that have resulted to mobility limitations, gait instability, generalized weakness, and impairment of motor control as demonstrated by the following impairment level findings: 1. Decreased strength to right LE major muscle groups 2. Impaired standing balance 3. Impaired activity tolerance requiring the use of oxygen supplementation continuously 4. Limitation of joint range of motion in right shoulder Impairments are continuing to contribute to the following functional limitations: 1. Inability to safely ambulate without assistive device 2. Increase completion time for mobility ADL performance 3. Increased fall risk Goals: Goals X1 week 1. Bed-Chair independent NOT MET 2. Chair-Bed independent NOT MET 3. Independent gait on level surface with use of 4 wheeled walker for at least 300 feet without report of pain nor dyspnea NOT MET 4. Good static and dynamic standing balance/tolerance NOT MET DISCHARGE RECOMMENDATIONS: Home when medically cleared by hospitalist. Patient will benefit from home health PT services in order to progress mobility level using least restrictive assistive ambulatory device, assess home safety, identify additional equipment needs, and establish a functional maintenance program that will increase ability of patient to remain at home. TREATMENT CODE/TIME: CT Thank you for the opportunity to participate in the care of this patient. Luzmaria Castro PT, DPT, CLT [facility] [place], [place]
== END 2021-02-22 13:42 | disposition home health service (06) | DRG 190 ==
LOC: ER 14:54 → ICU 16:10 → MS 02-18 20:21
PROVIDERS: Internal Medicine; Nurse Practitioner Acute Care; Nurse Practitioner Family; Admitting Provider Family Medicine; Emergency Provider Student in an Organized Health Care Education/Training Program; PCP Nurse Practitioner Family; Visit Provider Family Medicine
DX: J44.1 Chronic obstructive pulmonary disease with (acute) exacerbation (principal); J96.21 Acute and chronic respiratory failure with hypoxia; J96.22 Acute and chronic respiratory failure with hypercapnia; E87.1 Hypo-osmolality and hyponatremia; E78.5 Hyperlipidemia, unspecified; F17.210 Nicotine dependence, cigarettes, uncomplicated; F10.10 Alcohol abuse, uncomplicated; M54.9 Dorsalgia, unspecified; I11.0 Hypertensive heart disease with heart failure; I50.9 Heart failure, unspecified; J32.8 Other chronic sinusitis; K21.9 Gastro-esophageal reflux disease without esophagitis; R91.1 Solitary pulmonary nodule; F41.8 Other specified anxiety disorders; M81.0 Age-related osteoporosis without current pathological fracture; Z90.2 Acquired absence of lung [part of]; Z20.822 Contact with and (suspected) exposure to COVID-19; R73.9 Hyperglycemia, unspecified; T38.0X5A Adverse effect of glucocorticoids and synthetic analogues, initial encounter; Z66 Do not resuscitate
CPT/HCPCS: 36415; 80048; 80053; 82805; 85027; 87635; 93005; 94618; 94640; 96372; 96374; 96375; 97162; 99291; J1650; 71045; 83735; 83880; 84484; 85025; 85379; 85610; 93010; 94660; 99223; 99232; 99233; 99239; J0610; J1940; J2060; J2930; J3490; J7512; J7613; J7620; J7644

== ENCOUNTER 2021-03-05 21:07 | Outpatient (REF) | payer MEDICARE, SELFPAY ==
[2021-03-05 21:33] LABS: ALT 28 U/L (14-59); AST 19 U/L (15-37); Albumin 3.8 g/dL (3.4-5.0); Alkaline Phosphatase 81 U/L (46-116); BUN 18 mg/dL (7-18); Bilirubin, Total 0.7 mg/dL (0.2-1.0); CO2 35.4 mmol/L (21.0-32.0); CREATININE 0.9 mg/dL (0.55-1.02); Calcium 9.2 mg/dL (8.5-10.1); Chloride 86 mmol/L (98-107); Glucose 95 mg/dL (74-106); Potassium 5.1 mmol/L (3.5-5.1); Total Protein 6.6 g/dL (6.4-8.2)
[2021-03-05 21:40] LABS: Anion Gap 2.6 mmol/L (3-11); Sodium 124 mmol/L (136-145)
== END 2021-03-05 21:08 | disposition home or self-care (01) ==
LOC: LBN 21:07
PROVIDERS: PCP Nurse Practitioner Family; Visit Provider Nurse Practitioner Family
DX: E83.42 Hypomagnesemia (principal); E87.1 Hypo-osmolality and hyponatremia
CPT/HCPCS: 80053

== ENCOUNTER 2021-03-14 12:50 | Inpatient (IN) | payer MEDICARE, SELFPAY ==
[2021-03-14] VITALS (77 sets, daily range): BP systolic 104–197; BP diastolic 31–124; PULSE 86–115; RESP 2–34; TEMP 36.3; O2SAT 76–98
--- NOTE | 2021-03-14 12:45 | RT.EKG_ITS ---
APPROVED REPORT Exam: Resting ECG Reason for Exam: syncope Patient Location: E HR:106 bpm ECG Measurements Heart Rate 106 AXIS WV 176 P 52 QRSd 97 QRS -9 QT 307 T 48 QTc 407 Conclusion Sinus tachycardia...rate> 99 Low voltage, extremity leads...all extremity leads <0.5mV
--- NOTE | 2021-03-14 13:00 | DI.RAD_ITS ---
Exam(s) XR PORTABLE CHEST AP EXAM: XR PORTABLE CHEST AP CLINICAL HISTORY: sleepy/sob. TECHNIQUE: 2D digital imaging was performed. COMPARISON: CR XR PORTABLE CHEST AP from 02/17/2021 FINDINGS: Chest leads in place. Cardiomegaly again noted. Mediastinum unchanged. Calcified granuloma in the lateral right lung is unchanged. Another calcified granuloma in the left lower lobe retrocardiac reg ion is again noted. Increased interstitial markings throughout both lung hillman are again noted. Right lung apex is diff icult to evaluate because of the patient's chin being down over this area. No obvious pleural effusi ons. IMPRESSION: Chronic interstitial disease. Calcified granulomas lateral right lung and left lung base are unchang ed from previous study. DATA REPOSITORY: RADIATION DOSE DELIVERED: All CT scans at this facility use at least one of these dose optimization techniques: automated exposure control; mA and/or kV adjustment per patient size (includes targeted e xams where dose is matched to clinical indication); or iterative reconstruction.
[2021-03-14 13:10] LABS: pH 7.22 (7.35-7.45); pO2 100 mmHg (80-105); sO2 98 % (95-98)
[2021-03-14 13:13] LABS: FIO2L 4 L; Site Right Radial; pCO2 > 100 mmHg (35-45)
--- NOTE | 2021-03-14 13:18 | ED.GENADUL_ITS ---
Discharge Plan Disposition Patient Disposition: STILL A PATIENT Condition: Serious Discharge Details Clinical Impression: Respiratory failure, Hyponatremia, CHF (congestive heart failure), Hyperkalemia Admit Date/Time: 03/14/21 18:25 Admit Provider: Camille Cage Attending Provider: Camille Cage Primary Care Provider: Srinivasa Hamilton ED Provider: Fannie García Discharge Data Discharge Date/Time-TO BE ENTERED AT DEPARTURE: 03/14/21 18:20 Medical Decision Making <LIZANDRO Nice - Last Filed: 03/15/21 08:13> 80-year-old female, DNR, DNI, palliative care patient, with significant past med ical history, multiple recent admissions to our facility, lives with her daughter, presents for decreased responsiveness and acute on chronic shortness of breath. She appears chronically ill, is on 4 L nasal cannula at baseline, EMS placed her on 6 for transport, O2 sats in the high 90s on room air. Will obtain cardiac work-up, D-dimer, ABG, give 125 IV Solu-Medrol, a DuoNeb, and 80 IV Lasix. Differential includes but not excluded to pulmonary failure, pulmonary edema, pneumonia, COPD exacerbation, PE, ACS, etc. VBG returned at 1315, pH 7.220, PCO2 greater than 100. Patient was placed on BiPAP Patient is resistant to wear the BiPAP, needs to be redirected multiple times. We had a discussion, she is in fact a DNR/DNI but does not want to pursue hospice care. At this time she is unmedicated but clearly BiPAP is what she needs. Laboratory values reveal a white blood cell count of 7.69 hemoglobin 10.7 had a crit 32.0 platelet count 204. Sodium 115 potassium 5.9 chloride 78, creatinine 0.9 with a GFR greater than 60. LFTs unremarkable. Troponin less than 0.05. BNP 2197, urinalysis pending. Patient will be given 125 cc/h normal saline to slowly correct her hyponatremia, cannot be aggressive as we do not want to correct too quickly and her BNP is over 2000. Her potassium is elevated but she received 80 IV Lasix, IV fluid, and a DuoNeb Patient is tolerating her BiPAP better, repeat ABG does not reveal any significant improvement. D-dimer is elevated, will pursue CTA Awaiting urinalysis, procalcitonin and lactate. I did speak with the patient's daughter, explained the gravity of the situation to the daughter, awaiting CTA results and she will need to be updated with what is happening. Medical Records Medical records reviewed: Yes I reviewed the patient's medical records. Imaging Data Radiologic Study: Attestation: I personally reviewed and interpreted this imaging study as follows: Imaging: X-Ray Radiologist's impression: PROCEDURE INFORMATION: Exam: XR Chest Exam date and time: 03/14/2021 1:12 PM Age: 80 years old Clinical indication: Shortness of breath and other: Fatigue; Patient HX: SOB, fatique, sleepy, TECHNIQUE: Imaging protocol: XR of the chest. Views: 1 view. COMPARISON: 1. CR XR PORTABLE CHEST AP 02/17/2021 3:26 PM 2. CR CHEST 2 VIEWS PA,LAT 06/01/2015 10:01:23 PM 3. CR XR PORTABLE CHEST AP 02/17/2021 3:26:02 PM FINDINGS: Lungs: Patient's head obscures the pulmonary apices especially on the right. Diffuse bilateral interstitial prominence appears to be the patient's baseline with no focal area of consolidation. 1 cm calcified granuloma right mid lung is unchanged. 9 mm nodule left lung base may or may not be a calcified granuloma and additional nodules versus vessels on Cely's cannot be excluded in either lung. Pleural spaces: Unremarkable. No pleural effusion. No pneumothorax. Heart/Mediastinum: Mild cardiomegaly unchanged when accounting for positional difference. Vasculature: Atherosclerotic calcification of the aortic arch. Bones/joints: Unremarkable. IMPRESSION: 1. Chronic interstitial prominence appears to be at the patient's baseline and likely represents chronic interstitial lung disease although chronic or recurrent pulmonary edema also cannot be excluded. 2. At least 1 nodule in the left lung base which cannot be confirmed as a calcified granuloma. Consider non emergent CT chest for follow-up if clinically indicated. Lab Data Lab results reviewed: Yes I reviewed the patient's lab results. Labs: Laboratory Tests Range/Units 03/14/21 03/14/21 03/14/21 13:00 13:00 13:00 WBC (4.4-10.8) 10^3/uL RBC (3.93-5.22) 10^6/uL Hgb (11.2-15.7) g/dL Hct (36.0-46.0) % MCV (80-95) fL MCH (27.0-33.0) pg MCHC (32.0-36.0) % RDW (11.7-14.6) % Plt Count (130-400) 10^3/uL MPV (8.0-11.0) fL Immature Gran % Neutrophils % Lymphocytes % Monocytes % Eosinophils % Basophils % Nucleated RBC % % Absolute Neutrophils (1.2-6.7) 10^3/uL Absolute Lymphocytes (1.2-3.4) 10^3/uL Absolute Monocytes (0.1-0.8) 10^3/uL Absolute Eosinophils (0.0-0.7) 10^3/uL Absolute Basophils (0.0-0.2) 10^3/uL PT (9.3-11.0) sec 9.8 INR (0.9-1.1) 1.0 APTT (21.0-27.5) sec 28.0 H D-Dimer (<500) ng/mlFEU 846 H ABG Sample Site ABG pH (7.35-7.45) ABG pCO2 (35-45) mmHg ABG pO2 (80-105) mmHg ABG HCO3 (22-26) mmol/L ABG Total CO2 (23-27) mmol/L ABG O2 Saturation (95-98) % ABG Base Excess (-2-3) mmol/L Oxygen Liter Flow L FiO2 % Sodium (136-145) mmol/L 115 L* Potassium (3.5-5.1) mmol/L 5.9 H Chloride (98-107) mmol/L 78 L Carbon Dioxide (21.0-32.0) mmol/L 39.0 H Anion Gap (3-11) mmol/L -2.0 L BUN (7-18) mg/dL 17 Creatinine (0.55-1.02) mg/dL 0.9 Estimated GFR/1.73 m2 (mL/min/1.73m2) >= 60.00 Glucose (74-106) mg/dL 117 H Calcium (8.5-10.1) mg/dL 9.2 Magnesium (1.8-2.4) mg/dL 1.8 Total Bilirubin (0.2-1.0) mg/dL 0.8 AST (15-37) U/L 27 ALT (14-59) U/L 23 Alkaline Phosphatase (46-116) U/L 94 Troponin I (<0.06) ng/mL < 0.05 NT-Pro-B Natriuret Pep (<300) pg/mL 2197 H Total Protein (6.4-8.2) g/dL 7.4 Albumin (3.4-5.0) g/dL 3.8 Urine Color (Yellow) Urine Clarity (Clear) Urine pH (5-8) Ur Specific [place] (1.005-1.025) Urine Protein (Negative) mg/dL Urine Ketones (Negative) mg/dL Urine Blood (Negative) Urine Nitrite (Negative) Urine Bilirubin (Negative) Urine Urobilinogen (Up TO 0.2) EU/dL Ur Leukocyte Esterase (Negative) Urine RBC (0-2) HPF Urine WBC (0-5) HPF Ur Epithelial Cells (Negative) HPF Urine Crystals (Negative) HPF Urine Bacteria (Negative) HPF Urine Mucus (Negative) Ur Culture Indicated? Urine Glucose (Negative) mg/dL COVID-19 Source Range/Units 03/14/21 03/14/21 03/14/21 13:00 13:02 13:10 WBC (4.4-10.8) 10^3/uL 7.69 RBC (3.93-5.22) 10^6/uL 3.27 L Hgb (11.2-15.7) g/dL 10.7 L Hct (36.0-46.0) % 32.0 L MCV (80-95) fL 97.9 H MCH (27.0-33.0) pg 32.7 MCHC (32.0-36.0) % 33.4 RDW (11.7-14.6) % 13.1 Plt Count (130-400) 10^3/uL 204 MPV (8.0-11.0) fL 8.6 Immature Gran % 0.3 Neutrophils % 85.2 Lymphocytes % 4.4 Monocytes % 9.8 Eosinophils % 0.0 Basophils % 0.3 Nucleated RBC % % 0 Absolute Neutrophils (1.2-6.7) 10^3/uL 6.56 Absolute Lymphocytes (1.2-3.4) 10^3/uL 0.34 L Absolute Monocytes (0.1-0.8) 10^3/uL 0.75 Absolute Eosinophils (0.0-0.7) 10^3/uL 0.00 Absolute Basophils (0.0-0.2) 10^3/uL 0.02 PT (9.3-11.0) sec INR (0.9-1.1) APTT (21.0-27.5) sec D-Dimer (<500) ng/mlFEU ABG Sample Site Right radial ABG pH (7.35-7.45) 7.22 L ABG pCO2 (35-45) mmHg > 100 H* ABG pO2 (80-105) mmHg 100 ABG HCO3 (22-26) mmol/L ABG Total CO2 (23-27) mmol/L ABG O2 Saturation (95-98) % 98 ABG Base Excess (-2-3) mmol/L Oxygen Liter Flow L 4 FiO2 % Sodium (136-145) mmol/L Potassium (3.5-5.1) mmol/L Chloride (98-107) mmol/L Carbon Dioxide (21.0-32.0) mmol/L Anion Gap (3-11) mmol/L BUN (7-18) mg/dL Creatinine (0.55-1.02) mg/dL Estimated GFR/1.73 m2 (mL/min/1.73m2) Glucose (74-106) mg/dL Calcium (8.5-10.1) mg/dL Magnesium (1.8-2.4) mg/dL Total Bilirubin (0.2-1.0) mg/dL AST (15-37) U/L ALT (14-59) U/L Alkaline Phosphatase (46-116) U/L Troponin I (<0.06) ng/mL NT-Pro-B Natriuret Pep (<300) pg/mL Total Protein (6.4-8.2) g/dL Albumin (3.4-5.0) g/dL Urine Color (Yellow) Urine Clarity (Clear) Urine pH (5-8) Ur Specific [place] (1.005-1.025) Urine Protein (Negative) mg/dL Urine Ketones (Negative) mg/dL Urine Blood (Negative) Urine Nitrite (Negative) Urine Bilirubin (Negative) Urine Urobilinogen (Up TO 0.2) EU/dL Ur Leukocyte Esterase (Negative) Urine RBC (0-2) HPF Urine WBC (0-5) HPF Ur Epithelial Cells (Negative) HPF Urine Crystals (Negative) HPF Urine Bacteria (Negative) HPF Urine Mucus (Negative) Ur Culture Indicated? Urine Glucose (Negative) mg/dL COVID-19 Source Nasal/nares Range/Units 03/14/21 03/14/21 14:10 15:20 WBC (4.4-10.8) 10^3/uL RBC (3.93-5.22) 10^6/uL Hgb (11.2-15.7) g/dL Hct (36.0-46.0) % MCV (80-95) fL MCH (27.0-33.0) pg MCHC (32.0-36.0) % RDW (11.7-14.6) % Plt Count (130-400) 10^3/uL MPV (8.0-11.0) fL Immature Gran % Neutrophils % Lymphocytes % Monocytes % Eosinophils % Basophils % Nucleated RBC % % Absolute Neutrophils (1.2-6.7) 10^3/uL Absolute Lymphocytes (1.2-3.4) 10^3/uL Absolute Monocytes (0.1-0.8) 10^3/uL Absolute Eosinophils (0.0-0.7) 10^3/uL Absolute Basophils (0.0-0.2) 10^3/uL PT (9.3-11.0) sec INR (0.9-1.1) APTT (21.0-27.5) sec D-Dimer (<500) ng/mlFEU ABG Sample Site Left radial ABG pH (7.35-7.45) 7.21 L ABG pCO2 (35-45) mmHg > 100 H* ABG pO2 (80-105) mmHg 63 L ABG HCO3 (22-26) mmol/L ABG Total CO2 (23-27) mmol/L ABG O2 Saturation (95-98) % 91 L ABG Base Excess (-2-3) mmol/L Oxygen Liter Flow L Bipap 12/5 FiO2 % 36 Sodium (136-145) mmol/L Potassium (3.5-5.1) mmol/L Chloride (98-107) mmol/L Carbon Dioxide (21.0-32.0) mmol/L Anion Gap (3-11) mmol/L BUN (7-18) mg/dL Creatinine (0.55-1.02) mg/dL Estimated GFR/1.73 m2 (mL/min/1.73m2) Glucose (74-106) mg/dL Calcium (8.5-10.1) mg/dL Magnesium (1.8-2.4) mg/dL Total Bilirubin (0.2-1.0) mg/dL AST (15-37) U/L ALT (14-59) U/L Alkaline Phosphatase (46-116) U/L Troponin I (<0.06) ng/mL NT-Pro-B Natriuret Pep (<300) pg/mL Total Protein (6.4-8.2) g/dL Albumin (3.4-5.0) g/dL Urine Color (Yellow) Yellow Urine Clarity (Clear) Clear Urine pH (5-8) 5.5 Ur Specific [place] (1.005-1.025) 1.020 Urine Protein (Negative) mg/dL 30 H Urine Ketones (Negative) mg/dL Negative Urine Blood (Negative) Negative Urine Nitrite (Negative) Negative Urine Bilirubin (Negative) Negative Urine Urobilinogen (Up TO 0.2) EU/dL 0.2 Ur Leukocyte Esterase (Negative) Negative Urine RBC (0-2) HPF 0-2 Urine WBC (0-5) HPF 0-2 Ur Epithelial Cells (Negative) HPF Rare Urine Crystals (Negative) HPF Negative Urine Bacteria (Negative) HPF Negative Urine Mucus (Negative) Negative Ur Culture Indicated? No Urine Glucose (Negative) mg/dL Negative COVID-19 Source ECG Data Attestation: I personally reviewed and interpreted this ECG (s) as follows: Interpretation: Please see official report by Dr. Rolle. Sinus tachycardia, ventricular of 106. No STEMI. <Gera Rolle MD - Last Filed: 03/14/21 13:29> Patient seen, examined [id number], discussed with Mr. Romeo. I agree with his assessment and plan to treat her hypercarbic acute on chronic respiratory failure. <LIZANDRO Sosa - Last Filed: 03/14/21 19:44> Care signed out to me from Bharat Romeo PA-C pending admission to ICU Patient is in hypercarbic respiratory failure with acidemia on BiPAP as she is a DNR/DNI status and maintaining BiPAP at this time Hyponatremic Patient was accepted to the intensive care unit by Dr. Cage, hospitalist CTA did not show pulmonary embolism Discussed with daughter, PAPA Benavidez HPI <LIZANDRO Nice - Last Filed: 03/15/21 08:13> General Mode of arrival: EMS . Date/Time Provider Initiated Documentation: 03/14/21 12:51 . Limitations to Documentation: altered mental status . Information obtained by: patient and EMS . HPI Narrative: This is an 80-year-old female, DNR, DNI, palliative care patient, with a pathological history of COPD with chronic respiratory failure, current smoker, CHF, hypertension, anxiety, depression, hyperlipidemia, hyponatremia, current 4 L nasal cannula O2 at baseline, presents via EMS for acute on chronic shortness of breath and decreased level of responsiveness. Difficult to obtain history from patient as she prefers to lay in the hospital stretcher with her eyes closed and not answering my questions. When prompted she will open her eyes and answer my questions. She admits to shortness of breath, worsening, but denies any recent fever, headache, chest pain, abdominal pain. She reports that the swelling in her legs are baseline. Patient is a poor and vague historian. Per EMS who spoke with the daughter at home, has had a decreased level of responsiveness over the past 24 hours. Related Data Home Medications Medication Instructions Recorded Confirmed Oxygen l NS PRN #2 07/28/14 03/05/21 levalbuterol HCl [Xopenex] 1.25 mg INHALATION Q8H PRN PRN 02/05/21 03/14/21 acetaminophen 325 mg tablet 325 mg PO Q4H PRN #90 tab 03/05/21 03/14/21 famotidine 20 mg tablet 20 mg PO DAILY #90 tab 03/05/21 03/14/21 fluticasone furoate 100 1 inh INHALATION DAILY #60 ea 03/05/21 03/14/21 mcg-vilanterol 25 mcg/dose inhalation powder fluticasone propionate 50 2 spray INTRANASAL DAILY #16 g 03/05/21 03/14/21 mcg/actuation nasal spray,suspension furosemide 80 mg tablet 80 mg PO DAILY #60 tab 03/05/21 03/14/21 guaifenesin 600 mg tablet, 600 mg PO BID #180 tab 03/05/21 03/14/21 extended release 12 hr levalbuterol tartrate 45 2 puff INHALATION Q4H PRN #15 g 03/05/21 03/14/21 mcg/actuation aerosol inhaler lidocaine 4 % topical patch 1 patch TOPICAL DAILY PRN #10 ea 03/05/21 03/14/21 lisinopril 40 mg tablet 40 mg PO DAILY #90 tab 03/05/21 03/14/21 lorazepam 0.5 mg tablet 0.5 mg PO BID PRN #90 tab 03/05/21 03/14/21 magnesium oxide 400 mg (241.3 mg 400 mg PO BID #30 tab 03/05/21 03/14/21 magnesium) tablet potassium chloride 10 mEq 10 meq PO DAILY #90 tab 03/05/21 03/14/21 tablet,extended release tiotropium bromide 2.5 2 puff INHALATION DAILY #1 inh 03/05/21 03/14/21 mcg/actuation mist for inhalation Previous Rx's Medication Instructions Recorded acetaminophen 325 mg tablet 325 mg PO Q4H PRN #90 tab 03/05/21 famotidine 20 mg tablet 20 mg PO DAILY #90 tab 03/05/21 fluticasone furoate 100 1 inh INHALATION DAILY #60 ea 03/05/21 mcg-vilanterol 25 mcg/dose inhalation powder fluticasone propionate 50 2 spray INTRANASAL DAILY #16 g 03/05/21 mcg/actuation nasal spray,suspension furosemide 80 mg tablet 80 mg PO DAILY #60 tab 03/05/21 guaifenesin 600 mg tablet, 600 mg PO BID #180 tab 03/05/21 extended release 12 hr levalbuterol tartrate 45 2 puff INHALATION Q4H PRN #15 g 03/05/21 mcg/actuation aerosol inhaler lidocaine 4 % topical patch 1 patch TOPICAL DAILY PRN #10 ea 03/05/21 lisinopril 40 mg tablet 40 mg PO DAILY #90 tab 03/05/21 lorazepam 0.5 mg tablet 0.5 mg PO BID PRN #90 tab 03/05/21 magnesium oxide 400 mg (241.3 mg 400 mg PO BID #30 tab 03/05/21 magnesium) tablet potassium chloride 10 mEq 10 meq PO DAILY #90 tab 03/05/21 tablet,extended release tiotropium bromide 2.5 2 puff INHALATION DAILY #1 inh 03/05/21 mcg/actuation mist for inhalation Allergies Allergy/AdvReac Type Severity Reaction Status Date / Time celecoxib [From Celebrex] Allergy Unknown Verified 03/14/21 13:29 NSAIDS (Non-Steroidal Allergy Unknown Verified 03/14/21 13:29 Anti-Inflamma Opcgnml-Odo-Amg Reductase Allergy Unknown Verified 03/14/21 13:29 Inhibitor Sulfa (Sulfonamide Allergy Unknown unknown Verified 03/14/21 13:29 Antibiotics) General Stated Complaint: RespSymp LOLA: 2 Review of Systems <LIZANDRO Nice - Last Filed: 03/15/21 08:13> Constitutional Constitutional: Reports fatigue, Denies fever(s) and Denies headache(s) ENT Ears, Nose, Mouth, and Throat: Denies headache(s) Cardiovascular Cardiovascular: Denies chest pain and Reports dyspnea Respiratory Respiratory: Reports cough and Reports dyspnea Gastrointestinal Gastrointestinal: Denies abdominal pain, Denies nausea and Denies vomiting Genitourinary Genitourinary: Denies dysuria Musculoskeletal Musculoskeletal: Denies back pain Integumentary/Breasts Skin/Breast: Denies rash Neurologic Neurologic: Denies headache(s) and Reports weakness (Generalized) Psychiatric Psychiatric: Reports anxiety Endocrine Endocrine: Reports fatigue Hematologic/Lymphatic Hematologic/Lymphatic: Denies easy bleeding and Denies easy bruising PFSH <LIZANDRO Nice - Last Filed: 03/15/21 08:13> Medical History Alcohol abuse Arthritis Back pain Bilateral sensorineural hearing loss CHF (congestive heart failure) 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 Cancer Stroke Father , 90's Diabetes Heart disease Hyperlipidemia Sister , 60's Diabetes Social History Smoking/Tobacco Use Status: Current every day Tobacco Type: cigarettes Tobacco: How many years used: 60 Second Hand Exposure: Yes Smoking risk assessment performed?: Yes Alcohol Intake: current Alcohol Intake frequency: holidays/special occasions only Drug use: Socially Substance use type: does not use Caregiver/Support person: Yes Pets and animals: Yes Pets and animals: dog(s) Sexually active: No What is your relationship status?: How often do you talk on the phone with friends or family?: twice per week How often do you get together with friends or relatives?: never How often do you attend mosque or religion services?: decline to answer Do you belong to any clubs or organized social groups?: no Panel score (0-1 are the most socially isolated patients): 0 What type of physical activity do you participate in: none [place]/Methodist: Anabaptist Seatbelt use: sometimes Helmet use: No Drive intox or ride w/intox vending route driver: No Do you feel safe at home: Yes Do you feel safe in your relationship?: Yes Exam <LIZANDRO Nice - Last Filed: 03/15/21 08:13> Const General: cooperative, in distress (Respiratory), ill appearing chronically and other Nutritional Appearance: obese Orientation: alert, awake, oriented to person, oriented to place and other (Does not know the date) [facility] Head: normal to inspection, normocephalic and atraumatic Face and sinus: normal facial exam Mouth: moist mucous membranes Eyes General: appearance normal, both eyes and all related structures Alignment and Position: alignment normal Periorbital: periorbital findings normal Eyelids: eyelids normal Conjunctivae: conjunctivae normal Sclera: sclerae normal Cornea: corneas normal Pupils: PERRL EOM: EOM intact bilaterally Direct ophthalmoscopy: normal light reflex Neck Neck: normal visual inspection, full ROM, no meningeal signs, trachea midline and supple Chest Chest: normal inspection of the chest Resp Effort & Inspection: audible wheezes, cough and labored Auscultation: diminished lung sounds bilaterally in the lower lung hillman and rhonchi (Throughout) Other: Speaks in 3 or 4 word sentences Cardio Rate: tachycardic (108) Rhythm: regular rhythm GI Inspection: obesity Palpation: soft and nontender Back/Spine/Pelvis Back: No back tenderness Skin General skin exam: no rashes or lesions noted Neuro General: patient alert, patient awake, moves all extremities and no focal motor deficits Sensory Exam: no sensory deficits noted Extrem General: no calf tenderness and pedal edema bilaterally pitting and 3+ Psych Appearance: grossly normal Mental Status: mental status grossly normal Course <LIZANDRO Nice - Last Filed: 03/15/21 08:13> Vital Signs Vital signs: Vital Signs Temperature 36.3 C L 03/14/21 13:01 Pulse 111 H 03/14/21 13:01 Respiratory Rate 29 H 03/14/21 13:01 Blood Pressure 109/73 03/14/21 13:01 Pulse Oximetry 93 03/14/21 13:01 Temperature 36.3 C L 03/14/21 13:01 Temperature Source Temporal Artery Scan 03/14/21 13:01 Pulse 98 H 03/14/21 13:03 Pulse 99 H 03/14/21 13:04 Respiratory Rate 28 H 03/14/21 13:04 Respiratory Effort Labored 03/14/21 13:05 Respiratory Depth Shallow 03/14/21 13:05 Blood Pressure 109/73 03/14/21 13:03 Blood Pressure Mean 77 03/14/21 13:03 Blood Pressure Position Sitting 03/14/21 13:01 Pulse Oximetry 96 03/14/21 13:04 Oxygen Delivery Method Nasal Cannula 03/14/21 13:01 Oxygen Flow Rate 4 03/14/21 13:01 Lab/Test Results Lab/Test Results: Laboratory Tests Range/Units 03/14/21 13:10 ABG Sample Site Right radial ABG pH (7.35-7.45) 7.22 L ABG pCO2 (35-45) mmHg > 100 H* ABG pO2 (80-105) mmHg 100 ABG HCO3 (22-26) mmol/L ABG Total CO2 (23-27) mmol/L ABG O2 Saturation (95-98) % 98 ABG Base Excess (-2-3) mmol/L Oxygen Liter Flow L 4 Critical Care Time <LIZANDRO Nice - Last Filed: 03/15/21 08:13> Critical Care Time Critical Care Time: Yes Total Critical Care Time: 35 Attestation: Upon my evaluation, this patient had a high probability of clinically significant, life-threatening deterioration due to their current medical conditions, which required my direct attention, intervention, and personal management. I have personally provided greater than 30 minutes of critical care time exclusive of the time spend on separately billable procedures. Time includes obtaining a history, examining the patient, pulse oximetry, review of laboratory data, radiology results, discussion with consultants, arranging urgent treatment with development of a management plan, evaluation of patient's response to treatment, and monitoring for potential decompensation. Interventions were performed as documented above. Sign Out <LIZANDRO Nice - Last Filed: 03/15/21 08:13> Sign Out Data: Sign Out Comment: Respiratory failure, CHF, hyponatremia, hyperkalemia. On BiPAP. Awaiting repeat troponin, CTA results, and admission Last updated by Bharta Romeo PA at 03/14/21 15:57
[2021-03-14 13:24] LABS: Source Nasal/Nares
[2021-03-14 13:25] LABS: Abs Immature Grans 0.02 10^3/uL (0.0-0.06); Absolute Basophil Count 0.02 10^3/uL (0.0-0.2); Absolute Lymphocyte Count 0.34 10^3/uL (1.2-3.4); Absolute Monocyte Count 0.75 10^3/uL (0.1-0.8); Absolute Neutrophil Count 6.56 10^3/uL (1.2-6.7); Basophils % 0.3; HGB 10.7 g/dL (11.2-15.7); Immature Grans % 0.3; Lymphocytes % 4.4; MCH 32.7 pg (27.0-33.0); MCHC 33.4 % (32.0-36.0); MCV 97.9 fL (80-95); MPV 8.6 fL (8.0-11.0); Monocytes % 9.8; Neutrophils % 85.2; Nucleated RBC 0 %; Platelet Count 204 10^3/uL (130-400); RBC 3.27 10^6/uL (3.93-5.22); RDW 13.1 % (11.7-14.6); RDW-SD 46.8 fL; WBC 7.69 10^3/uL (4.4-10.8)
[2021-03-14] MEDS: Albuterol/Ipratropium 3 ML UPD VIAL UPD ×2 (13:30→22:45)
[2021-03-14 13:39] LABS: Prothrombin Time 9.8 sec (9.3-11.0)
[2021-03-14] MEDS: methylPREDNISolone SUCC 125 MG VIAL IVP (13:40)
[2021-03-14 13:49] LABS: ALT 23 U/L (14-59); AST 27 U/L (15-37); Albumin 3.8 g/dL (3.4-5.0); Alkaline Phosphatase 94 U/L (46-116); BUN 17 mg/dL (7-18); Bilirubin, Total 0.8 mg/dL (0.2-1.0); CREATININE 0.9 mg/dL (0.55-1.02); Calcium 9.2 mg/dL (8.5-10.1); Chloride 78 mmol/L (98-107); Glucose 117 mg/dL (74-106); Potassium 5.9 mmol/L (3.5-5.1); Total Protein 7.4 g/dL (6.4-8.2)
[2021-03-14 13:50] LABS: Troponin I < 0.05 ng/mL (<0.06)
[2021-03-14 13:52] LABS: Sodium 115 mmol/L (136-145)
--- NOTE | 2021-03-14 14:00 | DI.CT_ITS ---
Exam(s) CT CHEST PE CTA EXAM: CT CHEST PE CTA CLINICAL HISTORY: sob, elevated dimer. TECHNIQUE: Imaging Protocol: CT angiography of the chest was performed using pulmonary embolus gus col. Multi planar reconstructions were performed. CONTRAST MATERIAL: Intravenous: Omnipaque 350 Contrast volume: 100 cc COMPARISON: CT CHEST WITH CONTRAST from 12/20/2011 FINDINGS: CHEST: PULMONARY ARTERIES: There are no intraluminal filling defects to suggest acute pulmonary emboli. LUNGS: There is mild infiltrate in the right lung base posterior basal segment right lower lobe. No pleural effusions.. No evidence of pulmonary infarction.. Calcified granuloma in the right upper lo be and left lower lobe noted, as seen on chest x-ray. Mild pulmonary fibrosis bilaterally. MEDIASTINUM: There is no hilar nor mediastinal adenopathy. Visualized thyroid unremarkable. CARDIAC: Mild cardiomegaly. No pericardial effusion.Thoracic aorta is calcified. 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 This fusiform aneurysm extends for a length of 2.6 cm along the artery. No significant stenosis in the artery at this level. Coronary artery calc ification noted. No significant shift of the interventricular septum. PARTIALLY VISUALIZED UPPERMOST ABDOMEN: No obvious findings OSSEOUS: There is a healed fracture of the right 3rd rib noted. No acute rib fractures.. IMPRESSION: 1. No evidence of acute pulmonary emboli. No evidence of pulmonary infarction.No pleural effusions. Calcified granulomas noted both lungs. 2. Mild bilateral pulmonary fibrosis. Mild infiltrate posterior basal segment right lower lobe. No so seated pleural effusion. 3. Average right subclavian artery again noted. 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 RADIATION DOSE DELIVERED: 370.94mGy.cm Total DLP DATA REPOSITORY: All CT scans at this facility are submitted to the National Radiology Data Registry (NRDR) Dose Index Registry (DIR) with the [employer] ([employer]). RADIATION OPTIMIZATION: All CT scans at this facility use at least one of these dose optimization te chniques: automated exposure control; mA and/or kV adjustment per patient size (includes targeted exa ms where dose is matched to clinical indication); or iterative reconstruction.
[2021-03-14 14:02] LABS: D-Dimer 846 ng/mlFEU (<500); Magnesium 1.8 mg/dL (1.8-2.4); NT-proBNP 2197 pg/mL (<300)
[2021-03-14] MEDS: Normal Saline 1,000 ML 125 ML IV (14:07)
[2021-03-14] MEDS: Furosemide 100 MG/10 ML VIAL 80 MG IVP (14:31)
[2021-03-14 14:42] LABS: pH 7.21 (7.35-7.45); pO2 63 mmHg (80-105); sO2 91 % (95-98)
[2021-03-14 14:45] LABS: FIO2 36 %; Site Left Radial; pCO2 > 100 mmHg (35-45)
--- NOTE | 2021-03-14 15:02 | DI.VRAD_ITS ---
PROCEDURE INFORMATION: Exam: XR Chest Exam date and time: 03/14/2021 1:12 PM Age: 80 years old Clinical indication: Shortness of breath and other: Fatigue; Patient HX: SOB, fatique, sleepy, TECHNIQUE: Imaging protocol: XR of the chest. Views: 1 view. COMPARISON: 1. CR XR PORTABLE CHEST AP 02/17/2021 3:26 PM 2. CR CHEST 2 VIEWS PA,LAT 06/01/2015 10:01:23 PM 3. CR XR PORTABLE CHEST AP 02/17/2021 3:26:02 PM FINDINGS: Lungs: Patient's head obscures the pulmonary apices especially on the right. Diffuse bilateral interstitial prominence appears to be the patient's baseline with no focal area of consolidation. 1 cm calcified granuloma right mid lung is unchanged. 9 mm nodule left lung base may or may not be a calcified granuloma and additional nodules versus vessels on Cely's cannot be excluded in either lung. Pleural spaces: Unremarkable. No pleural effusion. No pneumothorax. Heart/Mediastinum: Mild cardiomegaly unchanged when accounting for positional difference. Vasculature: Atherosclerotic calcification of the aortic arch. Bones/joints: Unremarkable. IMPRESSION: 1. Chronic interstitial prominence appears to be at the patient's baseline and likely represents chronic interstitial lung disease although chronic or recurrent pulmonary edema also cannot be excluded. 2. At least 1 nodule in the left lung base which cannot be confirmed as a calcified granuloma. Consider non emergent CT chest for follow-up if clinically indicated. Dictated and Authenticated by: Joshua Holder MD. Ordering:LUCIANO Nicholson MD
[2021-03-14 15:31] LABS: Bilirubin Negative (Negative); Blood Negative (Negative); Clarity Clear (Clear); Glucose Negative (Negative); Ketones Negative (Negative); Leukocyte Esterase Negative (Negative); Nitrite Negative (Negative); Urobilinogen 0.2 EU/dL (Up TO 0.2); pH 5.5 (5-8)
--- NOTE | 2021-03-14 15:45 | RT.EKG_ITS ---
APPROVED REPORT Exam: Resting ECG Reason for Exam: syncope Patient Location: E HR:98 bpm ECG Measurements Heart Rate [address] 188 P 72 QRSd 93 QRS -18 QT 330 T 43 QTc 423 Conclusion Sinus rhythm No st elevation
[2021-03-14] MEDS: Omnipaque 350 MG/ML 100 ML BTL IV (15:49)
[2021-03-14 15:50] LABS: Bacteria Negative HPF (Negative); C & S Indicated? No; Crystals Negative HPF (Negative); Epithelial Cells Rare HPF (Negative); Mucus Negative (Negative); RBC 0-2 HPF (0-2); WBC 0-2 HPF (0-5)
[2021-03-14 16:07] LABS: Lactate 0.5 mmol/L (0.6-1.4)
--- NOTE | 2021-03-14 16:24 | DI.VRAD_ITS ---
PROCEDURE INFORMATION: Exam: CTA Chest With Contrast Exam date and time: 03/14/2021 2:10 PM Age: 80 years old Clinical indication: Other: SOB, + d-dimer TECHNIQUE: Imaging protocol: Computed tomographic angiography of the chest with contrast. 3D rendering (Not supervised by radiologist): MIP and/or 3D reconstructed images were created by the technologist. Radiation optimization: The the the the the the [place] a lot the All CT scans at this facility use at least one of these dose optimization techniques: automated exposure control; mA and/or kV adjustment per patient size (includes targeted exams where dose is matched to clinical indication); or iterative reconstruction. Contrast material: OMNIPAQUE 350; Contrast volume: 100 ml; Contrast route: INTRAVENOUS (IV); COMPARISON: CR XR PORTABLE CHEST AP 03/14/2021 1:25 PM FINDINGS: Pulmonary arteries: Normal. No pulmonary emboli. Aorta: Moderate diffuse atherosclerotic calcification of the aorta. Great vessels off aortic arch: Aberrant right subclavian artery which is aneurysmal at its origin measuring up to 2.5 cm in transverse diameter. Lungs: 1 cm right upper lobe and 7 mm left lower lobe calcified granulomata accounting for the 2 nodules identified on the plain film images. There is an additional 5 mm right upper lobe pulmonary calcified granuloma just above the minor fissure. No additional pulmonary nodules. Consolidation right lung base. Peripheral thickening of the interlobular septa with associated small cystic spaces seen best laterally in the left upper lobe and posteriorly in the right lower lobe consistent with pulmonary fibrosis. Pleural spaces: Unremarkable. No pneumothorax. No pleural effusion. Heart: Mild cardiomegaly. Marked coronary vascular calcifications. Lymph nodes: Unremarkable. No enlarged lymph nodes. Bones/joints: Unremarkable. No acute fracture. Soft tissues: Unremarkable. IMPRESSION: 1. No pulmonary embolus or other acute finding. 2. Bilateral calcified granulomata with no suspicious pulmonary nodules. 3. Fairly mild pulmonary fibrosis. 4. Minimal consolidation right lung base which may represent atelectasis, edema, or pneumonia. 5. 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 Dictated and Authenticated by: Joshua Holder MD. Ordering:LUCIANO Nicholson MD
[2021-03-14 16:26] LABS: Troponin I < 0.05 ng/mL (<0.06)
[2021-03-14 16:27] LABS: COVID-19 PCR Negative (Negative)
[2021-03-14 16:39] LABS: Procalcitonin < 0.1 ng/mL
--- NOTE | 2021-03-14 17:06 | W.PM.HP.N ---
Date of service: 03/14/21 Time of Service: 17:07 Assessment and Plan Assessment and plan (1) Acute on chronic respiratory failure with hypoxia and hypercapnia: Status: Acute Assessment and plan: multifactorial. Clinically, this is more due to acute exacerbation of CHF than COPD, but undeniably she has both. Continue BiPAP, diuresis, nebs, steroids. Monitor in the ICU. Serial ABGs are showing improvement on current setting. It would be ideal if the patient spent the night on BiPAP. (2) Acute on chronic diastolic CHF (congestive heart failure), NYHA class 1: Status: Acute Assessment and plan: Lasix gtt, monitoring I/Os and daily weights. (3) Acute exacerbation of chronic obstructive pulmonary disease (COPD): Status: Acute Assessment and plan: No evidence of infectious process. Treat with nebs and steroids as well as BiPAP. (4) Acute on chronic respiratory acidosis: Status: Acute Assessment and plan: As above (5) CO2 narcosis: Status: Acute Assessment and plan: As above (6) Hyponatremia: Status: Acute Assessment and plan: Likely dilutional. Improving with diuresis. Monitor Q 6H BMPs. Consider adrenal insufficiency given hyperkalemia - started on steroids. (7) Hyperkalemia: Status: Acute Assessment and plan: Improving with diuresis. MOnitor. (8) DVT prophylaxis: Status: Acute Assessment and plan: enoxaparin (9) Discharge planning issues: Status: Acute Assessment and plan: DNR/DNI Palliative c/s PT c/s Total Critical Care Time 45 minutes. History of Present Illness History of Present Illness Chief Complaint: Altered mental status, shortness of breath. Narrative: Ms Amaris Lam is an 80 year old female with PMHx of chronic hypoxic hypercapnic respiratory failure, oxygen-dependent COPD on 4L of O2 at home, as well as h/o chronic diastolic CHF, and chronic hyponatremia, who was brought to [facility] ED today for altered mental status and worsening shortness of breath. Her workup in the ED revealed acute on chronic respiratory acidosis with pH of 7.2 by ABG and pCO2 of >100. Her imaging ruled out acute PE, but did reveal pulmonary edema. She was treated with nebs, IV steroids, lasix, and bipap therapy. While initially she was not compliant with BiPAP therapy, she finally did permit it and since then her pCO2 and pH have improved. Hospitalist admission was requested. Review of Systems Unobtainable due to mental status [facility] Medical History Alcohol abuse Arthritis Back pain Bilateral sensorineural hearing loss CHF (congestive heart failure) 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 Cancer Stroke Father , 90's Diabetes Heart disease Hyperlipidemia Sister , 60's Diabetes Social History Smoking/Tobacco Use Status: Current every day Tobacco Type: cigarettes Tobacco: How many years used: 60 Second Hand Exposure: Yes Smoking risk assessment performed?: Yes Alcohol Intake: current Alcohol Intake frequency: holidays/special occasions only Drug use: Socially Substance use type: does not use Caregiver/Support person: Yes Pets and animals: Yes Pets and animals: dog(s) Sexually active: No What is your relationship status?: How often do you talk on the phone with friends or family?: twice per week How often do you get together with friends or relatives?: never How often do you attend shinto or taoism services?: decline to answer Do you belong to any clubs or organized social groups?: no Panel score (0-1 are the most socially isolated patients): 0 What type of physical activity do you participate in: none Malgorzata/Yazdanism: Restoration Seatbelt use: sometimes Helmet use: No Drive intox or ride w/intox package car driver: No Do you feel safe at home: Yes Do you feel safe in your relationship?: Yes Meds Allergies and Home Medications Allergies Allergy/AdvReac Type Severity Reaction Status Date / Time celecoxib [From Celebrex] Allergy Unknown Verified 03/14/21 13:29 NSAIDS (Non-Steroidal Allergy Unknown Verified 03/14/21 13:29 Anti-Inflamma Niqvzeb-Pft-[id number] Reductase Allergy Unknown Verified 03/14/21 13:29 Inhibitor Sulfa (Sulfonamide Allergy Unknown unknown Verified 03/14/21 13:29 Antibiotics) Home Medications Medication Instructions Recorded Confirmed Type Oxygen l NS PRN #2 07/28/14 03/05/21 History levalbuterol HCl [Xopenex] 1.25 mg INHALATION Q8H PRN PRN 02/05/21 03/14/21 History acetaminophen 325 mg tablet 325 mg PO Q4H PRN #90 tab 03/05/21 03/14/21 Rx famotidine 20 mg tablet 20 mg PO DAILY #90 tab 03/05/21 03/14/21 Rx fluticasone furoate 100 1 inh INHALATION DAILY #60 ea 03/05/21 03/14/21 Rx mcg-vilanterol 25 mcg/dose inhalation powder fluticasone propionate 50 2 spray INTRANASAL DAILY #16 g 03/05/21 03/14/21 Rx mcg/actuation nasal spray,suspension furosemide 80 mg tablet 80 mg PO DAILY #60 tab 03/05/21 03/14/21 Rx guaifenesin 600 mg tablet, 600 mg PO BID #180 tab 03/05/21 03/14/21 Rx extended release 12 hr levalbuterol tartrate 45 2 puff INHALATION Q4H PRN #15 g 03/05/21 03/14/21 Rx mcg/actuation aerosol inhaler lidocaine 4 % topical patch 1 patch TOPICAL DAILY PRN #10 ea 03/05/21 03/14/21 Rx lisinopril 40 mg tablet 40 mg PO DAILY #90 tab 03/05/21 03/14/21 Rx lorazepam 0.5 mg tablet 0.5 mg PO BID PRN #90 tab 03/05/21 03/14/21 Rx magnesium oxide 400 mg (241.3 mg 400 mg PO BID #30 tab 03/05/21 03/14/21 Rx magnesium) tablet potassium chloride 10 mEq 10 meq PO DAILY #90 tab 03/05/21 03/14/21 Rx tablet,extended release tiotropium bromide 2.5 2 puff INHALATION DAILY #1 inh 03/05/21 03/14/21 Rx mcg/actuation mist for inhalation Exam Narrative Exam Narrative: General: Obese elderly female who is asleep on BiPAP, arousable and tries to take it off, no evidence of increased worked of breathing Neurological: no obvious focal deficits, lethargic, arousable, unable to provide history Psychiatric: difficult to evaluate due to mental status Skin: Visible skin intact HEENT: Atraumatic, normocephalic, EOMI, dry MM, wearing BiPAP mask, no submandibular or cervical lymphadenopathy, no obvious goiter, + JVD Cardiovascular: RRR, tachycardic Lungs: rales B Gastrointestinal: soft, nontedistended Genitourinary: has a patterson Extremities: 3+ BLE edema Results Imaging Additional studies: CXR: Chronic interstitial disease. Calcified granulomas lateral right lung and left lung base are unchanged from previous study. CTA chest: 1. No evidence of acute pulmonary emboli. No evidence of pulmonary infarction.No pleural effusions. Calcified granulomas noted both lungs. 2. Mild bilateral pulmonary fibrosis. Mild infiltrate posterior basal segment right lower lobe. No so seated pleural effusion. 3. Average right subclavian artery again noted. There is fusiform aneurysmal dilatation at the origin of this aberrant right subclavian artery with maximum diameter 2.4 cm. EKG: SR 98, peaked T waves are chronic, no acute ischemia Labs Result diagrams: 03/14/21 13:00 03/14/21 17:35 Labs: Laboratory Results - last 24 hr 03/14/21 03/14/21 03/14/21 13:00 13:00 13:00 WBC RBC Hgb Hct MCV MCH MCHC RDW Plt Count MPV Immature Gran % Neutrophils % Lymphocytes % Monocytes % Eosinophils % Basophils % Nucleated RBC % Absolute Neutrophils Absolute Lymphocytes Absolute Monocytes Absolute Eosinophils Absolute Basophils PT 9.8 INR 1.0 APTT 28.0 H D-Dimer 846 H ABG Sample Site ABG pH ABG pCO2 ABG pO2 ABG HCO3 ABG Total CO2 ABG O2 Saturation ABG Base Excess VBG Lactate Oxygen Liter Flow FiO2 Sodium 115 L* Potassium 5.9 H Chloride 78 L Carbon Dioxide 39.0 H Anion Gap -2.0 L BUN 17 Creatinine 0.9 Estimated GFR/1.73 m2 >= 60.00 Glucose 117 H Calcium 9.2 Magnesium 1.8 Total Bilirubin 0.8 AST 27 ALT 23 Alkaline Phosphatase 94 Troponin I < 0.05 NT-Pro-B Natriuret Pep 2197 H Total Protein 7.4 Albumin 3.8 Procalcitonin Urine Color Urine Clarity Urine pH Ur Specific [place] Urine Protein Urine Ketones Urine Blood Urine Nitrite Urine Bilirubin Urine Urobilinogen Ur Leukocyte Esterase Urine RBC Urine WBC Ur Epithelial Cells Urine Crystals Urine Bacteria Urine Mucus Ur Culture Indicated? Urine Glucose COVID-19 Source SARS-CoV-2 (PCR) 03/14/21 03/14/21 03/14/21 13:00 13:02 13:10 WBC 7.69 RBC 3.27 L Hgb 10.7 L Hct 32.0 L MCV 97.9 H MCH 32.7 MCHC 33.4 RDW 13.1 Plt Count 204 MPV 8.6 Immature Gran % 0.3 Neutrophils % 85.2 Lymphocytes % 4.4 Monocytes % 9.8 Eosinophils % 0.0 Basophils % 0.3 Nucleated RBC % 0 Absolute Neutrophils 6.56 Absolute Lymphocytes 0.34 L Absolute Monocytes 0.75 Absolute Eosinophils 0.00 Absolute Basophils 0.02 PT INR APTT D-Dimer ABG Sample Site Right radial ABG pH 7.22 L ABG pCO2 > 100 H* ABG pO2 100 ABG HCO3 ABG Total CO2 ABG O2 Saturation 98 ABG Base Excess VBG Lactate Oxygen Liter Flow 4 FiO2 Sodium Potassium Chloride Carbon Dioxide Anion Gap BUN Creatinine Estimated GFR/1.73 m2 Glucose Calcium Magnesium Total Bilirubin AST ALT Alkaline Phosphatase Troponin I NT-Pro-B Natriuret Pep Total Protein Albumin Procalcitonin Urine Color Urine Clarity Urine pH Ur Specific [place] Urine Protein Urine Ketones Urine Blood Urine Nitrite Urine Bilirubin Urine Urobilinogen Ur Leukocyte Esterase Urine RBC Urine WBC Ur Epithelial Cells Urine Crystals Urine Bacteria Urine Mucus Ur Culture Indicated? Urine Glucose COVID-19 Source Nasal/nares SARS-CoV-2 (PCR) Negative 03/14/21 03/14/21 03/14/21 14:10 15:20 16:02 WBC RBC Hgb Hct MCV MCH MCHC RDW Plt Count MPV Immature Gran % Neutrophils % Lymphocytes % Monocytes % Eosinophils % Basophils % Nucleated RBC % Absolute Neutrophils Absolute Lymphocytes Absolute Monocytes Absolute Eosinophils Absolute Basophils PT INR APTT D-Dimer ABG Sample Site Left radial ABG pH 7.21 L ABG pCO2 > 100 H* ABG pO2 63 L ABG HCO3 ABG Total CO2 ABG O2 Saturation 91 L ABG Base Excess VBG Lactate Oxygen Liter Flow Bipap 12/5 FiO2 36 Sodium Potassium Chloride Carbon Dioxide Anion Gap BUN Creatinine Estimated GFR/1.73 m2 Glucose Calcium Magnesium Total Bilirubin AST ALT Alkaline Phosphatase Troponin I < 0.05 NT-Pro-B Natriuret Pep Total Protein Albumin Procalcitonin Urine Color Yellow Urine Clarity Clear Urine pH 5.5 Ur Specific [place] 1.020 Urine Protein 30 H Urine Ketones Negative Urine Blood Negative Urine Nitrite Negative Urine Bilirubin Negative Urine Urobilinogen 0.2 Ur Leukocyte Esterase Negative Urine RBC 0-2 Urine WBC 0-2 Ur Epithelial Cells Rare Urine Crystals Negative Urine Bacteria Negative Urine Mucus Negative Ur Culture Indicated? No Urine Glucose Negative COVID-19 Source SARS-CoV-2 (PCR) 03/14/21 16:02 WBC RBC Hgb Hct MCV MCH MCHC RDW Plt Count MPV Immature Gran % Neutrophils % Lymphocytes % Monocytes % Eosinophils % Basophils % Nucleated RBC % Absolute Neutrophils Absolute Lymphocytes Absolute Monocytes Absolute Eosinophils Absolute Basophils PT INR APTT D-Dimer ABG Sample Site ABG pH ABG pCO2 ABG pO2 ABG HCO3 ABG Total CO2 ABG O2 Saturation ABG Base Excess VBG Lactate 0.5 L Oxygen Liter Flow FiO2 Sodium Potassium Chloride Carbon Dioxide Anion Gap BUN Creatinine Estimated GFR/1.73 m2 Glucose Calcium Magnesium Total Bilirubin AST ALT Alkaline Phosphatase Troponin I NT-Pro-B Natriuret Pep Total Protein Albumin Procalcitonin < 0.1 Urine Color Urine Clarity Urine pH Ur Specific [place] Urine Protein Urine Ketones Urine Blood Urine Nitrite Urine Bilirubin Urine Urobilinogen Ur Leukocyte Esterase Urine RBC Urine WBC Ur Epithelial Cells Urine Crystals Urine Bacteria Urine Mucus Ur Culture Indicated? Urine Glucose COVID-19 Source SARS-CoV-2 (PCR) Last Vital Signs Temp 36.3 C L 03/14/21 13:01 Pulse 114 H 03/14/21 16:46 Resp 21 03/14/21 16:50 BP 170/113 H 03/14/21 16:46 Pulse Ox 76 L 03/14/21 16:40
[2021-03-14 17:08] LABS: BE 14 mmol/L (-2-3); HCO3 41 mmol/L (22-26); pH 7.25 (7.35-7.45); pO2 76 mmHg (80-105); sO2 96 % (95-98); tCO2 39 mmol/L (23-27)
[2021-03-14 17:12] LABS: FIO2 36 %; FIO2L BIPAP 14/5 L; Site Left Radial; pCO2 95 mmHg (35-45)
[2021-03-14 17:49] LABS: Anion Gap 0.4 mmol/L (3-11); BUN 17 mg/dL (7-18); CO2 37.6 mmol/L (21.0-32.0); CREATININE 0.7 mg/dL (0.55-1.02); Calcium 9.1 mg/dL (8.5-10.1); Chloride 78 mmol/L (98-107); Glucose 139 mg/dL (74-106); Potassium 5.4 mmol/L (3.5-5.1)
[2021-03-14 17:50] LABS: Sodium 116 mmol/L (136-145)
[2021-03-14 19:02] LABS: HCO3 43 mmol/L (22-26); pO2 68 mmHg (80-105); sO2 94 % (95-98); tCO2 40 mmol/L (23-27)
[2021-03-14 19:04] LABS: BE > 15 mmol/L (-2-3); FIO2 36 %; FIO2L BIPAP 14/5 L; Site Right Radial; pCO2 88 mmHg (35-45)
[2021-03-14] MEDS: Pantoprazole 40 MG VIAL IVP (19:38)
[2021-03-14] MEDS: Enoxaparin 40 MG/0.4 ML SYR SC (19:38)
[2021-03-14] MEDS: methylPREDNISolone SUCC 125 MG VIAL 80 MG IVP (19:39)
[2021-03-14] MEDS: Normal Saline Flush 10 ML SYR (19:39)
[2021-03-14] MEDS: Nicotine 14 MG/24 HR PATCH TD (23:31)
[2021-03-14] MEDS: LORazepam 2 MG/ML VIAL 0.5 MG IVP (23:32)
[2021-03-15] VITALS (41 sets, daily range): BP systolic 93–164; BP diastolic 35–94; PULSE 92–130; RESP 4–36; TEMP 36.2–36.5; O2SAT 81–99
[2021-03-15 00:45] LABS: Anion Gap 1.6 mmol/L (3-11); BUN 16 mg/dL (7-18); CO2 38.4 mmol/L (21.0-32.0); CREATININE 0.8 mg/dL (0.55-1.02); Calcium 9.6 mg/dL (8.5-10.1); Chloride 78 mmol/L (98-107); Glucose 171 mg/dL (74-106); Potassium 5.3 mmol/L (3.5-5.1)
[2021-03-15 00:46] LABS: Sodium 118 mmol/L (136-145)
[2021-03-15] MEDS: methylPREDNISolone SUCC 125 MG VIAL 80 MG IVP ×3 (04:12→21:16)
[2021-03-15] MEDS: Albuterol/Ipratropium 3 ML UPD VIAL UPD (04:12)
[2021-03-15] MEDS: Normal Saline Flush 10 ML SYR (04:13)
[2021-03-15 06:59] LABS: Abs Immature Grans 0.01 10^3/uL (0.0-0.06); Absolute Lymphocyte Count 0.17 10^3/uL (1.2-3.4); Absolute Monocyte Count 0.04 10^3/uL (0.1-0.8); Absolute Neutrophil Count 2.15 10^3/uL (1.2-6.7); HCT 32.3 % (36.0-46.0); Immature Grans % 0.4; Lymphocytes % 7.2; MCH 32.4 pg (27.0-33.0); MCHC 34.1 % (32.0-36.0); MPV 8.9 fL (8.0-11.0); Monocytes % 1.7; Neutrophils % 90.7; Nucleated RBC 0 %; Platelet Count 219 10^3/uL (130-400); RDW-SD 45.2 fL; WBC 2.37 10^3/uL (4.4-10.8)
[2021-03-15 07:25] LABS: BUN 14 mg/dL (7-18); CREATININE 0.7 mg/dL (0.55-1.02); Calcium 9.4 mg/dL (8.5-10.1); Chloride 80 mmol/L (98-107); Glucose 153 mg/dL (74-106); Magnesium 1.5 mg/dL (1.8-2.4); Potassium 4.9 mmol/L (3.5-5.1); TSH (W/Ref FT4) 0.41 uIU/mL (0.36-3.74)
[2021-03-15 07:26] LABS: Sodium 119 mmol/L (136-145)
[2021-03-15 07:38] LABS: Diff Comment Diff Reviewed; RBC Morphology Normal
--- NOTE | 2021-03-15 08:13 | W.PM.PROGNOT ---
Date of Service Date of service: 03/15/21 Time of Service: 10:38 Assessment and Plan Assessment and plan (1) Acute on chronic respiratory failure with hypoxia and hypercapnia: Status: Acute Assessment and plan: multifactorial. Clinically, this is more due to acute exacerbation of CHF than COPD exacerbation, but does have sputum production today, so we will culture this. Continue BiPAP, diuresis, nebs, steroids. Keep in the ICU for now. pH 7.4 this am, but I do think BiPAP overnight may be a good idea again tonight if the patient tolerates it. I think she could probably benefit from having BiPAP at home, but evidently the patient's daughter was not interested in any respiratory equipment we prescribed at our facility. (2) Acute on chronic diastolic CHF (congestive heart failure), NYHA class 1: Status: Acute Assessment and plan: Continue lasix gtt, monitoring I/Os and daily weights. (3) Acute exacerbation of chronic obstructive pulmonary disease (COPD): Status: Acute Assessment and plan: No evidence of infectious process per procalcitonin. No indication for antibiotics at this time - however, we are culturing sputum and monitoring it for color change. Treat with nebs and steroids as well as BiPAP. Given tachycardia, ipratropium and levalbuterol are a better combination. We also added budesonide neb today as the patient always refuses symbicort in our facility. (4) Acute on chronic respiratory acidosis: Status: Resolved Assessment and plan: As above (5) CO2 narcosis: Status: Resolved Assessment and plan: As above (6) Hyponatremia: Status: Acute Assessment and plan: Likely dilutional. Improving with diuresis. Monitor Q 6H BMPs. Consider adrenal insufficiency given hyperkalemia - currently on steroids. (7) Hyperkalemia: Status: Resolved Assessment and plan: Continue to monitor. Was treated with lasix. (8) DVT prophylaxis: Status: Acute Assessment and plan: enoxaparin (9) Discharge planning issues: Status: Acute Assessment and plan: DNR/DNI Palliative c/s PT c/s Total Critical Care Time 45 minutes. Subjective Subjective Interval history since last seen: Ms Sequeira is off bipap now, anxious. She reports feeling short of breath but is not answering any other questions. She is tachycardic to 130s (sinus) during her anxious episode. Spent the night on bipap, 15/5, 36% FiO2, doing better after updrafts. O2 sat 96% on BiPAP this morning. Was awake, trying to crawl out of bed for some of the night/this morning. Did get ativan last night. Also got some this morning. Lasix gtt was never started last night, but started this morning. Patterson overnight 1800 cc out. Exam Narrative Exam Narrative: General: Obese elderly female, visibly anxious, tachypneic/dyspneic, spitting phlegm on the floor. A&Ox1 at least, but it is hard to truly assess orientation as the patient is very anxious/not cooperative HEENT: EOMI, MMM Cardiovascular: RRR, tachycardic Lungs: wheezing and crackles B Gastrointestinal: soft, nontedistended Genitourinary: has a patterson Extremities: 2+ BLE edema, improved from yesterday Objective Last Vital Signs Temp 36.5 C 03/15/21 07:02 Pulse 108 H 03/15/21 07:02 Resp 28 H 03/15/21 06:10 BP 157/69 H 03/15/21 06:10 Pulse Ox 97 03/15/21 06:10 Laboratory Results - last 24 hr 03/14/21 03/14/21 03/14/21 13:00 13:00 13:00 WBC RBC Hgb Hct MCV MCH MCHC RDW Plt Count MPV Immature Gran % Neutrophils % Lymphocytes % Monocytes % Eosinophils % Basophils % Nucleated RBC % Absolute Neutrophils Absolute Lymphocytes Absolute Monocytes Absolute Eosinophils Absolute Basophils RBC Morphology PT 9.8 INR 1.0 APTT 28.0 H D-Dimer 846 H ABG Sample Site ABG pH ABG pCO2 ABG pO2 ABG HCO3 ABG Total CO2 ABG O2 Saturation ABG Base Excess VBG Lactate Oxygen Liter Flow FiO2 Sodium 115 L* Potassium 5.9 H Chloride 78 L Carbon Dioxide 39.0 H Anion Gap -2.0 L BUN 17 Creatinine 0.9 Estimated GFR/1.73 m2 >= 60.00 Glucose 117 H Calcium 9.2 Magnesium 1.8 Total Bilirubin 0.8 AST 27 ALT 23 Alkaline Phosphatase 94 Troponin I < 0.05 NT-Pro-B Natriuret Pep 2197 H Total Protein 7.4 Albumin 3.8 Procalcitonin TSH Urine Color Urine Clarity Urine pH Ur Specific [place] Urine Protein Urine Ketones Urine Blood Urine Nitrite Urine Bilirubin Urine Urobilinogen Ur Leukocyte Esterase Urine RBC Urine WBC Ur Epithelial Cells Urine Crystals Urine Bacteria Urine Mucus Ur Culture Indicated? Urine Glucose COVID-19 Source SARS-CoV-2 (PCR) 03/14/21 03/14/21 03/14/21 13:00 13:02 13:10 WBC 7.69 RBC 3.27 L Hgb 10.7 L Hct 32.0 L MCV 97.9 H MCH 32.7 MCHC 33.4 RDW 13.1 Plt Count 204 MPV 8.6 Immature Gran % 0.3 Neutrophils % 85.2 Lymphocytes % 4.4 Monocytes % 9.8 Eosinophils % 0.0 Basophils % 0.3 Nucleated RBC % 0 Absolute Neutrophils 6.56 Absolute Lymphocytes 0.34 L Absolute Monocytes 0.75 Absolute Eosinophils 0.00 Absolute Basophils 0.02 RBC Morphology PT INR APTT D-Dimer ABG Sample Site Right radial ABG pH 7.22 L ABG pCO2 > 100 H* ABG pO2 100 ABG HCO3 ABG Total CO2 ABG O2 Saturation 98 ABG Base Excess VBG Lactate Oxygen Liter Flow 4 FiO2 Sodium Potassium Chloride Carbon Dioxide Anion Gap BUN Creatinine Estimated GFR/1.73 m2 Glucose Calcium Magnesium Total Bilirubin AST ALT Alkaline Phosphatase Troponin I NT-Pro-B Natriuret Pep Total Protein Albumin Procalcitonin TSH Urine Color Urine Clarity Urine pH Ur Specific [place] Urine Protein Urine Ketones Urine Blood Urine Nitrite Urine Bilirubin Urine Urobilinogen Ur Leukocyte Esterase Urine RBC Urine WBC Ur Epithelial Cells Urine Crystals Urine Bacteria Urine Mucus Ur Culture Indicated? Urine Glucose COVID-19 Source Nasal/nares SARS-CoV-2 (PCR) Negative 03/14/21 03/14/21 03/14/21 14:10 15:20 15:23 WBC RBC Hgb Hct MCV MCH MCHC RDW Plt Count MPV Immature Gran % Neutrophils % Lymphocytes % Monocytes % Eosinophils % Basophils % Nucleated RBC % Absolute Neutrophils Absolute Lymphocytes Absolute Monocytes Absolute Eosinophils Absolute Basophils RBC Morphology PT INR APTT D-Dimer ABG Sample Site Left radial ABG pH 7.21 L ABG pCO2 > 100 H* ABG pO2 63 L ABG HCO3 ABG Total CO2 ABG O2 Saturation 91 L ABG Base Excess VBG Lactate Oxygen Liter Flow Bipap 12/5 FiO2 36 Sodium Potassium Chloride Carbon Dioxide Anion Gap BUN Creatinine Estimated GFR/1.73 m2 Glucose Calcium Magnesium Total Bilirubin AST ALT Alkaline Phosphatase Troponin I NT-Pro-B Natriuret Pep Total Protein Albumin Procalcitonin TSH Urine Color Yellow Cancelled Urine Clarity Clear Cancelled Urine pH 5.5 Cancelled Ur Specific [place] 1.020 Cancelled Urine Protein 30 H Cancelled Urine Ketones Negative Cancelled Urine Blood Negative Cancelled Urine Nitrite Negative Cancelled Urine Bilirubin Negative Cancelled Urine Urobilinogen 0.2 Cancelled Ur Leukocyte Esterase Negative Cancelled Urine RBC 0-2 Urine WBC 0-2 Ur Epithelial Cells Rare Urine Crystals Negative Urine Bacteria Negative Urine Mucus Negative Ur Culture Indicated? No Urine Glucose Negative Cancelled COVID-19 Source SARS-CoV-2 (PCR) 03/14/21 03/14/21 03/14/21 16:02 16:02 17:05 WBC RBC Hgb Hct MCV MCH MCHC RDW Plt Count MPV Immature Gran % Neutrophils % Lymphocytes % Monocytes % Eosinophils % Basophils % Nucleated RBC % Absolute Neutrophils Absolute Lymphocytes Absolute Monocytes Absolute Eosinophils Absolute Basophils RBC Morphology PT INR APTT D-Dimer ABG Sample Site Left radial ABG pH 7.25 L ABG pCO2 95 H* ABG pO2 76 L ABG HCO3 41 H ABG Total CO2 39 H ABG O2 Saturation 96 ABG Base Excess 14 H VBG Lactate 0.5 L Oxygen Liter Flow Bipap 14/5 FiO2 36 Sodium Potassium Chloride Carbon Dioxide Anion Gap BUN Creatinine Estimated GFR/1.73 m2 Glucose Calcium Magnesium Total Bilirubin AST ALT Alkaline Phosphatase Troponin I < 0.05 NT-Pro-B Natriuret Pep Total Protein Albumin Procalcitonin < 0.1 TSH Urine Color Urine Clarity Urine pH Ur Specific [place] Urine Protein Urine Ketones Urine Blood Urine Nitrite Urine Bilirubin Urine Urobilinogen Ur Leukocyte Esterase Urine RBC Urine WBC Ur Epithelial Cells Urine Crystals Urine Bacteria Urine Mucus Ur Culture Indicated? Urine Glucose COVID-19 Source SARS-CoV-2 (PCR) 03/14/21 03/14/21 03/15/21 17:35 18:59 00:35 WBC RBC Hgb Hct MCV MCH MCHC RDW Plt Count MPV Immature Gran % Neutrophils % Lymphocytes % Monocytes % Eosinophils % Basophils % Nucleated RBC % Absolute Neutrophils Absolute Lymphocytes Absolute Monocytes Absolute Eosinophils Absolute Basophils RBC Morphology PT INR APTT D-Dimer ABG Sample Site Right radial ABG pH 7.30 L ABG pCO2 88 H* ABG pO2 68 L ABG HCO3 43 H ABG Total CO2 40 H ABG O2 Saturation 94 L ABG Base Excess > 15 H VBG Lactate Oxygen Liter Flow Bipap 14/5 FiO2 36 Sodium 116 L* 118 L* Potassium 5.4 H 5.3 H Chloride 78 L 78 L Carbon Dioxide 37.6 H 38.4 H Anion Gap 0.4 L 1.6 L BUN 17 16 Creatinine 0.7 0.8 Estimated GFR/1.73 m2 >= 60.00 >= 60.00 Glucose 139 H 171 H Calcium 9.1 9.6 Magnesium Total Bilirubin AST ALT Alkaline Phosphatase Troponin I NT-Pro-B Natriuret Pep Total Protein Albumin Procalcitonin TSH Urine Color Urine Clarity Urine pH Ur Specific [place] Urine Protein Urine Ketones Urine Blood Urine Nitrite Urine Bilirubin Urine Urobilinogen Ur Leukocyte Esterase Urine RBC Urine WBC Ur Epithelial Cells Urine Crystals Urine Bacteria Urine Mucus Ur Culture Indicated? Urine Glucose COVID-19 Source SARS-CoV-2 (PCR) 03/15/21 03/15/21 06:30 06:30 WBC 2.37 L D RBC 3.40 L Hgb 11.0 L Hct 32.3 L MCV 95.0 MCH 32.4 MCHC 34.1 RDW 13.0 Plt Count 219 MPV 8.9 Immature Gran % 0.4 Neutrophils % 90.7 Lymphocytes % 7.2 Monocytes % 1.7 Eosinophils % 0.0 Basophils % 0.0 Nucleated RBC % 0 Absolute Neutrophils 2.15 Absolute Lymphocytes 0.17 L Absolute Monocytes 0.04 L Absolute Eosinophils 0.00 Absolute Basophils 0.00 RBC Morphology Normal PT INR APTT D-Dimer ABG Sample Site ABG pH ABG pCO2 ABG pO2 ABG HCO3 ABG Total CO2 ABG O2 Saturation ABG Base Excess VBG Lactate Oxygen Liter Flow FiO2 Sodium 119 L* Potassium 4.9 Chloride 80 L Carbon Dioxide 40.0 H Anion Gap -1.0 L BUN 14 Creatinine 0.7 Estimated GFR/1.73 m2 >= 60.00 Glucose 153 H Calcium 9.4 Magnesium 1.5 L Total Bilirubin AST ALT Alkaline Phosphatase Troponin I NT-Pro-B Natriuret Pep Total Protein Albumin Procalcitonin TSH 0.41 Urine Color Urine Clarity Urine pH Ur Specific [place] Urine Protein Urine Ketones Urine Blood Urine Nitrite Urine Bilirubin Urine Urobilinogen Ur Leukocyte Esterase Urine RBC Urine WBC Ur Epithelial Cells Urine Crystals Urine Bacteria Urine Mucus Ur Culture Indicated? Urine Glucose COVID-19 Source SARS-CoV-2 (PCR)
[2021-03-15] MEDS: MAGNESIUM SULFATE 4 GM/100 ML BAG IVPB (08:27)
[2021-03-15 08:35] LABS: HCO3 45 mmol/L (22-26); pO2 66 mmHg (80-105); sO2 95 % (95-98); tCO2 42 mmol/L (23-27)
[2021-03-15 08:39] LABS: BE > 15 mmol/L (-2-3); FIO2 35 %; FIO2L 14/5 L; Site Right Radial
--- NOTE | 2021-03-15 10:18 | PDOC.CMIN ---
- If Service Date Differs Date of service: 03/15/21 Time of Service: 10:18 Care Management Initial Assess REASON FOR HOSPITALIZATION:: Acute on chronic hypoxic hypercapnic respiratory PAST MEDICAL HISTORY/PAST SURGICAL HISTORY:: Medical History (Updated 02/17/21 @ 20:44 by Amish Wells MD). Alcohol abuse. Arthritis. Back pain. Bilateral sensorineural hearing loss. CHF (congestive heart failure). Chronic frontal sinusitis. Chronic maxillary sinusitis. Chronic middle ear effusion. Chronic respiratory failure with hypoxia. Compression fracture of spine. COPD (chronic obstructive pulmonary disease). GERD (gastroesophageal reflux disease). Hearing loss, bilateral. Hyperlipidemia. Hypertension. Hyponatremia (07/20/14). Mass of right lung. Mixed anxiety and depressive disorder. Osteoporosis. Psychiatric problem. Tobacco abuse. Surgical History (Updated 02/05/21 @ 19:45 by Camille Cage MD). H/O arthroscopy of left knee. H/O cataract removal with insertion of prosthetic lens. H/O pneumonectomy. For histoplasmosis. S/P colonoscopy PREVIOUS FUNCTIONAL STATUS/SOCIAL/FAMILY SUPPORTS:: Mary Jane lives in [facility] with her daughter Reema. Mary Jane has 2 other daughters and 2 sons. She is close to the 2 boys and Reema but has not spoken to the others in a long time. She also has 14 grandchildren and 5-6 great grandchildren.[place] and they have [address]. She has recently relocated from [place] where she has lived for the past 40 years. Mary Jane was in an assisted living facility in [place] where she stated she received substandard care. Mary Jane uses a walker for ambulation but is independent with ADLs. She has home oxygen at 4 liters continuous but uses 3L on her portable tank. CURRENT FUNCTIONAL STATUS:: Here with recurrent issue; CM unable to connect with Mary Jane, initial developed from previous assessment. ADVANCE DIRECTIVES:: None on file at [facility] Has patient been provided with info about the portal/API?: Yes Did the patient sign up for the portal?: Yes (Previously ) CODE STATUS:: DNR/DNI INSURANCE COVERAGE / FINANCIAL ISSUES:: Medicare CURRENT HOME/COMMUNITY SERVICES/EQUIPMENT:: Home health PT, OT, [facility] PRIMARY CARE PHYSICIAN:: Srinivasa Hamilton POTENTIAL DISCHARGE NEEDS:: Follow up with PCP and discharge plan of care PATIENT/FAMILY EDUCATION NEEDS:: Review of discharge instrructions, medications, follow up plan, limitations, Ask Me Three ANTICIPATED BARRIERS TO DISCHARGE:: None identified at this time. TRANSPORTATION:: Via private vehicle with family PLAN:: Mary Jane will likely be discharged home with a resumption of home health services for OT, PT and nursing. She will follow up with her new provider and discharge plan of care and transport with her daughter. CM will continue to support mary jane and her daughter and assess for discharge concerns.
[2021-03-15] MEDS: LORazepam 2 MG/ML VIAL 0.5 MG IVP ×2 (10:35→22:20)
[2021-03-15] MEDS: Ipratropium 0.5 MG/2.5 ML UPD VIAL UPD ×2 (11:15→17:40)
[2021-03-15] MEDS: Budesonide 0.5 MG/2 ML UPD VIAL UPD ×2 (11:20→21:15)
--- NOTE | 2021-03-15 11:23 | PHA.REVIEW ---
Pharmacy Admission Review - Admission Clinical Review (Last Reviewed 03/14/21 @ 13:40 by LIZANDRO Nice) Acute exacerbation of chronic obstructive pulmonary disease (COPD) (Acute) Acute on chronic diastolic CHF (congestive heart failure), NYHA class 1 (Acute) Respiratory failure (Acute) Hyponatremia (Acute) Acute on chronic respiratory failure with hypoxia and hypercapnia (Acute) Discharge planning issues (Acute) DVT prophylaxis (Acute) celecoxib [From Celebrex] Allergy (Unknown, Verified 03/14/21 13:29) NSAIDS (Non-Steroidal Anti-Inflamma Allergy (Unknown, Verified 03/14/21 13:29) Sqorpmd-Rps-Myd Reductase Inhibitor Allergy (Unknown, Verified 03/14/21 13:29) Sulfa (Sulfonamide Antibiotics) Allergy (Unknown, Verified 03/14/21 13:29) unknown Resuscitation Status DNR/DNI Height 5 ft 5 in Weight 90.8 kg - Renal Dosing Renal Dosing: BUN 14 mg/dL (7-18) 03/15/21 06:30 Creatinine 0.7 mg/dL (0.55-1.02) 03/15/21 06:30 Medications needing adjustments: Reviewed List of meds needing interventions: eCrCl using adjusted body weight is 71.3 ml/min - Anticoagulation Anticoagulation: Hgb 11.0 g/dL (11.2-15.7) L 03/15/21 06:30 Hct 32.3 % (36.0-46.0) L 03/15/21 06:30 Plt Count 219 10^3/uL (130-400) 03/15/21 06:30 INR 1.0 (0.9-1.1) 03/14/21 13:00 Creatinine 0.7 mg/dL (0.55-1.02) 03/15/21 06:30 DVT Prohphylaxis: Reviewed Medications: Enoxaparin - Opiate Usage Evaluate Pain Scale/Pains Meds: N/A - Relevant Labs Sodium 119 mmol/L (136-145) L* 03/15/21 06:30 Potassium 4.9 mmol/L (3.5-5.1) 03/15/21 06:30 Chloride 80 mmol/L (98-107) L 03/15/21 06:30 Magnesium 1.5 mg/dL (1.8-2.4) L 03/15/21 06:30 Electrolytes, C-Reactive P, ESR: Reviewed (hyponatremia - likely dilutional, hyperkalemia, 4 gm IV mag started this AM as will as a lasix drip so expecting Na and K+ to correct accordingly) - DM Control DM Control: Glucose 153 mg/dL (74-106) H 03/15/21 06:30 Insulin Dosing: N/A - Heart Failure/IA Heart Failure/IA: Troponin I < 0.05 ng/mL (<0.06) 03/14/21 16:02 NT-Pro-B Natriuret Pep 2197 pg/mL (<300) H 03/14/21 13:00 EF%, STEPHANIE's, B-Blockers, Diuretics: Reviewed - BP Control BP Control: Blood Pressure 103/58 Blood Pressure 100/50 Blood Pressure 93/63 Blood Pressure 117/65 Blood Pressure 149/76 Blood Pressure 153/77 Blood Pressure 142/74 Blood Pressure 157/69 Blood Pressure 164/77 Blood Pressure 127/56 Blood Pressure 123/53 Blood Pressure 156/81 If elevated: Reviewed - Qtc Review List meds needing interventions: QTc 423 on admission - IV to PO Switch IV Medications: Reviewed - Home Meds Home Med List reviewed: Reviewed Relevent Home Meds Not ordered & why?: lisinopril (correcting acute CHF), potassium (hyperkalemic right now); nebulized treatments ordered in place of maintenance inhaler -- uses Breo at home, pt always refuses Symbicort per md note - Current meds Current Medication Order Review: Reviewed - Comments Comments/Follow Ups: BMP is being monitored Q6H -- will cont to monitor Na and K+ closely, daily wt, I/Os, resp. status
--- NOTE | 2021-03-15 11:23 | PT.INNT ---
Date of service: 03/15/21 Time of Service: 11:20 PT Notes Visit Reasons: Acute on chronic hypoxic hypercapnic respiratory f Patient not appropriate for PT consult at this time, per Dr. Cage. Will attempt evaluation 03/16/21.
[2021-03-15 12:06] LABS: Anion Gap 0.2 mmol/L (3-11); BUN 15 mg/dL (7-18); CO2 42.8 mmol/L (21.0-32.0); CREATININE 0.9 mg/dL (0.55-1.02); Calcium 9.6 mg/dL (8.5-10.1); Chloride 78 mmol/L (98-107); Glucose 190 mg/dL (74-106); Potassium 4.9 mmol/L (3.5-5.1)
[2021-03-15 12:07] LABS: Sodium 121 mmol/L (136-145)
[2021-03-15] MEDS: Levalbuterol 1.25 MG/3 ML UPD VIAL UPD (12:18)
[2021-03-15] MEDS: Normal Saline Flush 10 ML SYR IVP ×2 (12:28→21:16)
[2021-03-15] MEDS: Lidocaine 5% Patch 1 PATCH TP (13:59)
--- NOTE | 2021-03-15 16:50 | RESPIRATORY ---
Pt has a hard time tolerating bipap and RN has needed to give ativan to help. Dr. Cage wants pt to wear bipap at night for as long as possible and she can be back on her 4L nc base t/o the day. Pt does not agree to do inhalers and is only taking nebs. Pt's family and pt have refused to be set up with oxygen outside of their previous DME that is located in [place] and not in [place]. Dr. Cage would like to see if pt qualifies for bipap at night IF she will be compliant and family agrees. (abg would be her qualifying factor)
--- NOTE | 2021-03-15 17:51 | W.SPSTE ---
Date of service: 03/15/21 Time of Service: 16:51 Subjective Patient received awake however lethargic (eyes closed intermittently throughout visit) despite verbal cues, continued to demonstrate lethargy during active mastication of provided soft solid texture; patient agreeable to evaluation, able to communicate wants/needs however significantly agitated, at times raising voice; pt unable to demonstrate full comprehension of recommendations for safe p.o. intake at this time. Reports she ?knows her issue is not with bread, that she can chew anything? which this clinician agreed with patient, provided education re: swallow-breath coordination and discussed rationale for temporarily modified diet, ie reducing need for active mastication/energy output (pt?s 02 does drop during mastication, breathing through mouth vs nose with 02/NC, overt s.s aspiration noted repeatedly during trials). *Pt is at heightened risk of airway occlusion or airway compromise unless provided with 1:1 supervision for all solid PO intake, continued counseling for reducing rate of intake; recommendations reviewed with RN and written on whiteboard. Objective Objective Clinical (Bedside) Swallow Evaluation Speech Language Pathology ASSESSMENT Referring Doctor: Camille Cage MD [facility] Orders: Dysphagia per report of RN Precautions: Fall, DNR/DNI HPI: Patient is an 80 year old female with PMHx of chronic hypoxic hypercapnic respiratory failure, oxygen-dependent COPD on 4L of O2 at home, as well as h/o chronic diastolic CHF, and chronic hyponatremia, who was brought to [facility] ED for altered mental status and worsening shortness of breath. Her workup in the ED revealed acute on chronic respiratory acidosis with pH of 7.2 by ABG and pCO2 of >100. Her imaging ruled out acute PE, but did reveal pulmonary edema. She was treated with nebs, IV steroids, lasix, and bipap therapy. While initially she was not compliant with BiPAP therapy, she finally did permit it and since then her pCO2 and pH have improved. [facility] consult requested given report of choking earlier in morning with regular texture solid (sandwich) Medical History Alcohol abuse Arthritis Back pain Bilateral sensorineural hearing loss CHF (congestive heart failure) Chronic frontal sinusitis Chronic maxillary sinusitis Chronic middle ear effusion Chronic respiratory failure with hypoxia Compression fracture of spine COPD (chronic obstructive pulmonary disease) GERD (gastroesophageal reflux disease) Hearing loss, bilateral Hyperlipidemia Hypertension Hyponatremia (10/26/14) Mass of right lung Mixed anxiety and depressive disorder Osteoporosis Palliative care patient Psychiatric problem Tobacco abuse Surgical History H/O arthroscopy of left knee H/O cataract removal with insertion of prosthetic lens H/O pneumonectomy For histoplasmosis S/P colonoscopy OBJECTIVE: Predisposing dysphagia risk factors: CHF, Chronic respiratory failure with hypoxia, Compression fracture of spine, COPD (chronic obstructive pulmonary disease), GERD (gastroesophageal reflux disease) Clinical signs of possible chronic dysphagia: coughing with po intake of regular solids Precipitating dysphagia risk factors / triggering event: CHF / COPD exacerbation Sp02: 94% RR: 20 / on 02 at baseline, currently with NC Cranial nerve exam / Oral Motor: CN V: facial sensation intact to light touch labial protrusion WFL labial coordination impaired - WFL Jaw excursion/lateralization intact mastication prolonged otherwise WFL lingual/labial sensation intact suspect superior hyoid movement is intact although cannot rule out at bedside CN VII: lateral sulcus residue absent anterior spillage not observed Salivation WFL CN IX/X: palatal elevation - unable to visualize Vocal Quality - WFL taste - WFL onset of swallow - WFL pharyngeal residue - denied by pt report nasopharyngeal regurgitation - denied by patient CN XII: bolus preparation/manipulation/control - possible impairment when desaturation occurs AP transit - likely WFL lingual protrusion WFL lingual coordination/ROM intact lingual residue absent Dentition/Oral Structures/Hygiene: Dentition WFL, lacking some anterior dentition oral hygiene appears WFL/adequate Language: verbal expression/fluency, naming, repetition, and auditory comprehension WFL however patient requires repetition at times Hearing: b/l HL, reports she does not have her HAs available on unit Mental Status: AAOx3, recall of current events relatively intact; very agitated, verbally aggressive Speech: WFL Laryngeal function exam: Secretions: WFL Vocal quality: WFL MPT: DNT S/Z ratio: DNT Pitch range: WFL Cough: (volitional) perceptually WFL PO intake IDDSI 0: thin (-) overt s.s aspiration via cup sip, straw IDDSI 4: pureed (-) overt s.s aspiration IDDSI 5: minced and moist (-) overt s.s aspiration IDDSI 6: soft & bite sized (+) overt s.s aspiration *02 sat drops to 87, requires cues for pausing, breathing through nose/NC Krystin Swallow Protocol: Fail; (+) cough IMPRESSIONS: Patient is at moderate-high risk for aspiration-related pulmonary complication given respiratory deficits, agitation+difficulties with comprehension of recommendations, and presumed reduced immunocompetence; continued adequate oral hygiene, improvements in physical mobility and overall pulmonary function likely to further reduce this risk; etiology of dysphagia is likely related to reduced breath-swallow coordination complicated by baseline respiratory deficits/ need for 02 and suspected decline in cognitive function when desaturation occurs. Further [facility] services warranted at this time to provide continued patient/caregiver education/counseling, direct treatment as warranted Provided education to patient re: anatomy/physiology of swallowing mechanism, overt s/sx to monitor for re: potential aspiration of food / liquids, importance of continued thorough oral care, relationship between respiratory function changes and deglutition; review of risk management Instrumentation: N/A at this time; pt not appropriate Diet Texture Modification(s): IDDSI Level(s) 5-Minced&Moist Solids; 0-Thin Liquids Medication Intake: As tolerated, 1 at a time Alter medications only as advised by MD or Pharmacist RISK MANAGEMENT: Oral hygiene BID/2x per day and before/after PO intake using friction with toothbrush on all oral structures as tolerated HOB upright as tolerated; upright for all PO intake. Encourage physical mobility as tolerated. Level of Assistance/Supervision: 1:1 supervision for all solid PO intake PO intake only when awake/alert Strategies/Adaptations/Assistive Equipment: Reduce auditory and/or visual distractions when eating, Provide verbal and/or visual cues to use recommended strategies, Small sips and bites when eating, Slow rate of intake, Swallow between bites, Small+frequent meals throughout day Posture/Positioning Needs: Maintain upright position at least 30 minutes after meals, Avoid meals/snacks 2-3 hours prior to reclining/sleeping, Sleep with head of bed elevated to reduce likelihood of nocturnal reflux Specialist referrals: N/A at this time Ancillary tests: N/A Therapy: 1-2x/week, PRN Goals: Pt will demonstrate (-) negative overt s.s aspiration or oral stasis with intake of soft & bite sized solids (IDDSI 6) with maintenance of 02 saturation across entirety of meal Pt will participate in continued trials of compensatory strategies as appropriate Pt/caregivers will demonstrate comprehension of all reviewed risk management precautions to ensure safe discharge PLAN: [facility] to follow while on unit. Carmenza Segovia MA CCC-ANALYST [facility] CPT Code: 13744 Clinical Swallowing Evaluation Coding
[2021-03-15 18:56] LABS: Anion Gap -0.8 mmol/L (3-11); BUN 22 mg/dL (7-18); CO2 39.8 mmol/L (21.0-32.0); CREATININE 1.3 mg/dL (0.55-1.02); Calcium 9.2 mg/dL (8.5-10.1); Chloride 80 mmol/L (98-107); Estimated GFR 39.41 (mL/min/1.73m2); Glucose 200 mg/dL (74-106); Potassium 4.9 mmol/L (3.5-5.1)
[2021-03-15 19:02] LABS: Sodium 119 mmol/L (136-145)
[2021-03-15] MEDS: Pantoprazole 40 MG VIAL IVP (21:15)
[2021-03-15] MEDS: Enoxaparin 40 MG/0.4 ML SYR SC (21:15)
[2021-03-16] VITALS (43 sets, daily range): BP systolic 110–154; BP diastolic 57–98; PULSE 73–151; RESP 2–33; TEMP 35.9–36.7; O2SAT 74–96
[2021-03-16] MEDS: Ipratropium 0.5 MG/2.5 ML UPD VIAL UPD ×5 (00:03→23:23)
[2021-03-16] MEDS: methylPREDNISolone SUCC 125 MG VIAL 80 MG IVP ×2 (04:10→12:29)
[2021-03-16 07:05] LABS: Abs Immature Grans 0.02 10^3/uL (0.0-0.06); Absolute Lymphocyte Count 0.21 10^3/uL (1.2-3.4); Absolute Monocyte Count 0.18 10^3/uL (0.1-0.8); Absolute Neutrophil Count 5.89 10^3/uL (1.2-6.7); HCT 31.2 % (36.0-46.0); HGB 10.5 g/dL (11.2-15.7); Immature Grans % 0.3; Lymphocytes % 3.3; MCH 31.8 pg (27.0-33.0); MCHC 33.7 % (32.0-36.0); MCV 94.5 fL (80-95); MPV 8.8 fL (8.0-11.0); Monocytes % 2.9; Neutrophils % 93.5; Nucleated RBC 0 %; Platelet Count 244 10^3/uL (130-400); RDW 13.1 % (11.7-14.6); RDW-SD 45.2 fL
[2021-03-16 07:23] LABS: Anion Gap -0.3 mmol/L (3-11); BUN 22 mg/dL (7-18); CO2 43.3 mmol/L (21.0-32.0); CREATININE 1.1 mg/dL (0.55-1.02); Calcium 9.2 mg/dL (8.5-10.1); Chloride 79 mmol/L (98-107); Estimated GFR 47.79 (mL/min/1.73m2); Glucose 184 mg/dL (74-106); Potassium 4.3 mmol/L (3.5-5.1)
[2021-03-16 07:33] LABS: Sodium 122 mmol/L (136-145)
--- NOTE | 2021-03-16 08:13 | PGE_ITS ---
Date of Service Date of service: 03/16/21 Time of Service: 12:23 Assessment and Plan Assessment and plan (1) Acute on chronic respiratory failure with hypoxia and hypercapnia: Status: Acute Assessment and plan: multifactorial. Clinically, this is more due to acute exacerbation of CHF than COPD exacerbation, but does have sputum production today, so we will culture this. Continue BiPAP, diuresis, nebs, steroids. Keep in the ICU for now. pH 7.4 this am, but I do think BiPAP overnight may be a good idea again tonight if the patient tolerates it. I think she could probably benefit from having BiPAP at home, but evidently the patient's daughter was not interested in any respiratory equipment we prescribed at our facility. (2) Acute on chronic diastolic CHF (congestive heart failure), NYHA class 1: Status: Acute Assessment and plan: Continue lasix gtt, monitoring I/Os and daily weights. (3) Acute exacerbation of chronic obstructive pulmonary disease (COPD): Status: Acute Assessment and plan: Nursing reports cough productive of purulent sputum. Start empiric vanco/zosyn (also concern for a possible UTI which these would be covering). Continue nebs, start to decrease steroids, encourage BiPAP. THe patient would benefit from going home on BiPAP. Continue budesonide, ipratropium and levalbuterol. (4) Acute on chronic respiratory acidosis: Status: Resolved Assessment and plan: As above (5) Encephalopathy acute: Status: Acute Assessment and plan: Multifactorial, due to CO2 retention/resp. acidosis, hyponatremia, probably benzodiazepine withdrawal. Improving. COnitnue to treat above and monitor mental status. (6) CO2 narcosis: Status: Resolved Assessment and plan: As above (7) Hyponatremia: Status: Acute Assessment and plan: Likely dilutional. Improving with diuresis. Monitor Q 6H BMPs. Consider adrenal insufficiency given hyperkalemia - currently on steroids. (8) Hyperkalemia: Status: Resolved Assessment and plan: Continue to monitor. Was treated with lasix. (9) DVT prophylaxis: Status: Acute Assessment and plan: enoxaparin (10) Discharge planning issues: Status: Acute Assessment and plan: DNR/DNI Palliative c/s PT c/s Keep in ICU. Total Critical Care Time 35 minutes. Subjective Subjective Interval history since last seen: Mental status better today. A&Ox1-2. More cooperative. Still impulsive/irritable. Denies dizziness, chest pain, shortness of breath, nausea. Endorses her chronic neck pain for which she gets a lidocaine patch. Remains on lasix gtt. UOP overnight 1300 cc/8 hrs. Slept on BiPAP. 10 pm - off for 1 hr until this am. On 6L of high flow O2. Resting now. Refusing to put the BiPAP back on. GERMAIN even on minimal exertion. Choking episode while eating yesterday, seen by speech therapy: minced moist solids/thin liquids recommended. NSR, 90s - 100s, PVCs. Constipated. Exam Narrative Exam Narrative: General: Obese elderly female, much calmer, cooperative, but impulsive/irritable. A&Ox1-2 (knows it's [facility], thinks she is at the place across the hospital). HEENT: EOMI, MMM Cardiovascular: RRR, tachycardic Lungs: wheezing and crackles B, improved from yesterday. Gastrointestinal: soft, nontedistended Genitourinary: has a patterson, urine clear. Extremities: 2+ BLE edema, improved from yesterday Objective Last Vital Signs Temp 36.3 C L 03/16/21 04:46 Pulse 95 H 03/16/21 06:00 Resp 24 03/16/21 06:00 BP 126/64 03/16/21 05:00 Pulse Ox 93 03/16/21 06:00 Laboratory Results - last 24 hr 03/15/21 03/15/21 03/15/21 08:34 11:45 18:30 WBC RBC Hgb Hct MCV MCH MCHC RDW Plt Count MPV Immature Gran % Neutrophils % Lymphocytes % Monocytes % Eosinophils % Basophils % Nucleated RBC % Absolute Neutrophils Absolute Lymphocytes Absolute Monocytes Absolute Eosinophils Absolute Basophils ABG Sample Site Right radial ABG pH 7.40 ABG pCO2 73 H* ABG pO2 66 L ABG HCO3 45 H ABG Total CO2 42 H ABG O2 Saturation 95 ABG Base Excess > 15 H Oxygen Liter Flow 14/5 FiO2 35 Sodium 121 L* 119 L* Potassium 4.9 4.9 Chloride 78 L 80 L Carbon Dioxide 42.8 H 39.8 H Anion Gap 0.2 L -0.8 L BUN 15 22 H D Creatinine 0.9 1.3 H Estimated GFR/1.73 m2 >= 60.00 39.41 Glucose 190 H 200 H Calcium 9.6 9.2 Magnesium 03/16/21 03/16/21 06:20 06:20 WBC 6.30 D RBC 3.30 L Hgb 10.5 L Hct 31.2 L MCV 94.5 MCH 31.8 MCHC 33.7 RDW 13.1 Plt Count 244 MPV 8.8 Immature Gran % 0.3 Neutrophils % 93.5 Lymphocytes % 3.3 Monocytes % 2.9 Eosinophils % 0.0 Basophils % 0.0 Nucleated RBC % 0 Absolute Neutrophils 5.89 Absolute Lymphocytes 0.21 L Absolute Monocytes 0.18 Absolute Eosinophils 0.00 Absolute Basophils 0.00 ABG Sample Site ABG pH ABG pCO2 ABG pO2 ABG HCO3 ABG Total CO2 ABG O2 Saturation ABG Base Excess Oxygen Liter Flow FiO2 Sodium 122 L* Potassium 4.3 Chloride 79 L Carbon Dioxide 43.3 H Anion Gap -0.3 L BUN 22 H Creatinine 1.1 H Estimated GFR/1.73 m2 47.79 Glucose 184 H Calcium 9.2 Magnesium 2.0
[2021-03-16] MEDS: Budesonide 0.5 MG/2 ML UPD VIAL UPD ×2 (08:23→20:04)
[2021-03-16] MEDS: Senna TAB 1 TAB PO ×2 (09:01→20:05)
[2021-03-16] MEDS: Bisacodyl 5 MG TABEC PO (09:01)
[2021-03-16] MEDS: LORazepam 2 MG/ML VIAL 0.5 MG IVP (09:01)
[2021-03-16] MEDS: Normal Saline Flush 10 ML SYR IVP ×4 (09:02→20:06)
--- NOTE | 2021-03-16 10:07 | PDOC.CMPRO ---
- If Service Date Differs Date of service: 03/16/21 Time of Service: 10:07 Care Management Progress Note S/O:Amanda was lying in bed when CM met with her. She requested that CM return later as she had not slept well and wanted to take a nap. CM returned 2 more times and Amanda was sleeping, so CM did not disturb her. Amanda was on bipap over night and it seemed to help with her breathing, however she refused it this morning. She remains afebrile but is tachycardic and tachypneic. Amanda had a PT eval today and was able to ambulate a short distance with a walker but developed dyspnea with even mild activity. Home bipap is being recommended but Amanda and her daughter have not agreed to that plan of care as yet. A: Amanda is an 80 year old woman admitted on 03/14/21 with respiratory failure P:Amanda will likely be discharged home with a resumption of home health services for OT, PT and nursing. She will follow up with her new provider and discharge plan of care and transport with her daughter. CM will continue to support amanda and her daughter and assess for discharge concerns.
[2021-03-16] MEDS: PIPERACILLIN/TAZO 3.375 GM in Normal Saline 50 ML IVPB ×3 (10:56→22:15)
[2021-03-16] MEDS: VANCOMYCIN/WATER (PEG) 1.25 GM/250 ML BAG IVPB (11:13)
[2021-03-16 11:48] LABS: Bilirubin Negative (Negative); Blood Small (Negative); Clarity Clear (Clear); Glucose Negative (Negative); Ketones Negative (Negative); Leukocyte Esterase Small (Negative); Nitrite Negative (Negative); Urobilinogen 0.2 EU/dL (Up TO 0.2); pH 5.5 (5-8)
[2021-03-16 11:55] LABS: Bacteria Moderate HPF (Negative); C & S Indicated? C&S Done As Ordered; Casts Negative LPF (Negative); Crystals Negative HPF (Negative); Epithelial Cells Rare HPF (Negative); Mucus Negative (Negative); Other Cells Rare Renal (Negative)
[2021-03-16] MEDS: Lidocaine 5% Patch 1 PATCH TP (12:26)
--- NOTE | 2021-03-16 12:39 | PT.INIE ---
Date of service: 03/16/21 Time of Service: 11:30 PT Notes Visit Reasons: Acute on chronic hypoxic hypercapnic respiratory f Inpatient Physical Therapy Evaluation Date: 03/16/21 Referring Doctor: Dr. Cage PT Orders: PT CONSULT: limited ability to ambulate Precautions: fall, standard Patient Profile/Admitting Diagnosis: Patient admitted from ER, where she presented with altered mental status and shortness of breath. Admitted for medical management of respiratory failure and COPD exacerbation. 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 Chronic respiratory failure with hypoxia Compression fracture of spine COPD (chronic obstructive pulmonary disease) GERD (gastroesophageal reflux disease) Hearing loss, bilateral Hyperlipidemia Hypertension Hyponatremia (07/20/14) Mass of right lung Mixed anxiety and depressive disorder Osteoporosis Palliative care patient Psychiatric problem Tobacco abuse Surgical History H/O arthroscopy of left knee H/O cataract removal with insertion of prosthetic lens H/O pneumonectomy For histoplasmosis S/P colonoscopy Social History/Home Situation: Patient lives in a single level home with ramp to enter. She lives with her daughter, who is supportive. States that she typically walks with a rollator for household distances. Equipment Owned/DME: 4WW, supplemental O2 (on 4L at home) Subjective: Mary Jane is agreeable to getting up to the chair this morning. She states that she is normally strong, but that she feels weak today. She has chronic pain in her right knee, although otherwise denies pain. Objective: General Observation: Sitting at edge of bed with multiple lines. Patient has telemetry in place, Ramesh catheter, IV to bilateral upper extremities, supplemental O2 (8 LPM) by nasal cannula. Mental Status: A and O x3. Pleasant and cooperative throughout session. Pain: Chronic right knee pain Vital Signs: Monitored on telemetry throughout session. During cardiovascular activity, SaO2 remains at 94% and above. ROM: Right Upper Extremity: Shoulder flexion to 120 degrees. Otherwise WFL Left Upper Extremity: Shoulder flexion 120 degrees. Otherwise WFL Right Lower Extremity: WFL Left Lower Extremity: WFL Strength: Right Upper Extremity: Shoulder flexion 3 -/5. Biceps and triceps 3/5 or greater (no resistance applied due to multiple lines) Left Upper Extremity: Shoulder flexion 3 -/5. Biceps and triceps 3/5 or greater (no resistance applied due to multiple lines) Right Lower Extremity: Hip flexion 4+/5. Quads 4/5. Hamstrings 4+/5. Ankle dorsiflexion 5/5. Left Lower Extremity: Hip flexion 5/5. Quads 4+/5. Hamstrings 4+/5. Ankle dorsiflexion 5/5. Bed Mobility/Transfers: Sit?stand: CGA Stand?sit: CGA Bed?chair: CGA, FW W Gait: Patient ambulates 6 feet with FW W, full weightbearing, CGA. She requires assistance for management of her multiple lines. Demonstrates GERMAIN with ambulation, although SaO2 remains at 94% or above. Balance: Static Sitting: Normal Dynamic Sitting: Good Static Standing: Fair Dynamic Standing: Fair Special Tests: Mobility Limitations Standardized Measure [facility] 6 clicks Basic Mobility Inpatient Short Form: Raw Score: 19 CMS Score: 42% impairment Informed Consent/Education: Patient instructed in purpose of PT consult and plan of care. Treatment: Patient was instructed in a seated exercise program, with close monitoring of vitals throughout. She performed seated marching for 30 seconds x 2, with cues for pursed lip breathing. She was instructed in additional upper and lower extremity activities for cardiovascular retraining, with intermittent rest periods for recovery and breathing cues throughout session. Full program can be found noted on flowsheet. Assessment: Patient is a 80 year old female referred to physical therapy services with the diagnosis of limited ability to ambulate in the presence of respiratory failure, COPD. Patient presents with clinical signs and symptoms consistent with diagnosis, as demonstrated by the following impairment level findings: 1. Decreased upper extremity strength 2. Decreased right lower extremity strength 3. Decreased activity tolerance Impairments are contributing to the following functional limitations: 1. Decreased tolerance to household distance ambulation Patient is assessed as Moderate 92408 complexity based on the following: History: Patient is an 80-year-old female presenting with mobility deficits related to acute respiratory failure and COPD exacerbation. She demonstrates significant limitations in activity tolerance, with GERMAIN even with light cardiovascular activity. Beginning factors include extensive medical history as noted above, advanced age, and chronic medical conditions. Examination: Functional limitations as noted above Presentation: Evolving Decision Making: Moderate complexity Goals: Goals X1 week 1. Supine-Sit: Supervision 2. Sit-Supine supervision 3. Sit-Stand: Supervision 4. Stand-Sit: Supervision 5. Bed-Chair: CGA with FW W 6. Chair-Bed: CGA with FW W 7. Gait: CGA with FW W x50 feet Plan of Care/Treatment Plan: 1-2x/day, 7 days/week x 1 week. Plan of care has been reviewed with the [employer] providing the service under Physical Therapy direction. Initiate Physical Therapy intervention for strengthening, bed mobility, transfers, gait, stairs, balance training, use of assistive device. DISCHARGE RECOMMENDATIONS: Home with continuation of services TREATMENT CODE/TIME: [id number] ([id number]) Marilee Piper, PT, DPT [facility]
[2021-03-16 12:41] LABS: Anion Gap 1.9 mmol/L (3-11); BUN 25 mg/dL (7-18); CO2 41.1 mmol/L (21.0-32.0); CREATININE 1.3 mg/dL (0.55-1.02); Calcium 9.2 mg/dL (8.5-10.1); Chloride 79 mmol/L (98-107); Estimated GFR 39.41 (mL/min/1.73m2); Glucose 149 mg/dL (74-106); Potassium 4.3 mmol/L (3.5-5.1)
[2021-03-16 13:04] LABS: Sodium 122 mmol/L (136-145)
[2021-03-16] MEDS: LORazepam 0.5 MG TAB PO ×2 (15:28→20:05)
[2021-03-16] MEDS: Acetaminophen 325 MG TAB PO (15:33)
[2021-03-16] MEDS: guaiFENesin 600 MG TABCR PO (20:05)
[2021-03-16] MEDS: Enoxaparin 40 MG/0.4 ML SYR SC (20:05)
[2021-03-16] MEDS: Docusate Sodium 100 MG CAP PO (20:05)
[2021-03-16] MEDS: methylPREDNISolone SUCC 125 MG VIAL 60 MG IVP (20:06)
[2021-03-16] MEDS: Pantoprazole 40 MG VIAL IVP (20:06)
[2021-03-17] VITALS (55 sets, daily range): BP systolic 98–149; BP diastolic 45–78; PULSE 54–133; RESP 1–37; TEMP 36.1–36.5; O2SAT 90–97
[2021-03-17] MEDS: LORazepam 2 MG/ML VIAL 0.5 MG IVP ×3 (03:13→23:55)
--- NOTE | 2021-03-17 04:00 | RT.EKG_ITS ---
APPROVED REPORT Exam: Resting ECG Reason for Exam: change of rhythm to Afib Patient Location: I HR:119 bpm ECG Measurements Heart Rate 119 AXIS [place] [id number] P [id number] QRSd 92 QRS -13 QT 304 T 50 QTc 427 Conclusion Atrial fibrillation...V-rate 79-179, irreg A-activity
[2021-03-17] MEDS: dilTIAZem 25 MG/5 ML VIAL 10 MG IVP (04:30)
[2021-03-17] MEDS: methylPREDNISolone SUCC 125 MG VIAL 60 MG IVP ×2 (04:36→14:00)
[2021-03-17] MEDS: PIPERACILLIN/TAZO 3.375 GM in Normal Saline 50 ML IVPB ×4 (04:36→21:23)
[2021-03-17] MEDS: Ipratropium 0.5 MG/2.5 ML UPD VIAL UPD ×4 (06:18→23:02)
[2021-03-17 07:15] LABS: HCT 29.7 % (36.0-46.0); HGB 9.9 g/dL (11.2-15.7); MCH 32.1 pg (27.0-33.0); MCHC 33.3 % (32.0-36.0); MCV 96.4 fL (80-95); MPV 9.1 fL (8.0-11.0); Platelet Count 236 10^3/uL (130-400); RBC 3.08 10^6/uL (3.93-5.22); RDW 13.4 % (11.7-14.6); RDW-SD 47.2 fL
[2021-03-17 07:26] LABS: Anion Gap -0.1 mmol/L (3-11); BUN 27 mg/dL (7-18); CO2 44.1 mmol/L (21.0-32.0); CREATININE 1.2 mg/dL (0.55-1.02); Calcium 8.7 mg/dL (8.5-10.1); Chloride 82 mmol/L (98-107); Estimated GFR 43.23 (mL/min/1.73m2); Glucose 162 mg/dL (74-106); Magnesium 1.7 mg/dL (1.8-2.4); Potassium 3.5 mmol/L (3.5-5.1); Sodium 126 mmol/L (136-145)
[2021-03-17] MEDS: Budesonide 0.5 MG/2 ML UPD VIAL UPD ×2 (08:10→19:56)
--- NOTE | 2021-03-17 08:21 | PGE_ITS ---
Date of Service Date of service: 03/17/21 Time of Service: 16:45 Assessment and Plan Assessment and plan (1) Acute on chronic respiratory failure with hypoxia and hypercapnia: Status: Acute Assessment and plan: multifactorial. Clinically, this is more due to acute exacerbation of CHF than COPD exacerbation, but is on empiric abx due to sputum production, described as possibly purulent by nursing. Continue BiPAP HS/when asleep, diuresis, nebs, steroids. Transfer out of the ICU. Will attempt to convince patient/daughter re BiPAP if tomorrow we feel she will still need it on discharge. (2) Atrial fibrillation with rapid ventricular response: Status: Acute Assessment and plan: Added cardizem 30 mg PO TID today. Continue to monitor on tele. Rate controlled so far today except for when she gets up or gets anxious. Given the patient's inconsistencies in mental status, I am not sure she is the best candidate for anticoagulation. Palliative care is consulted and will hopefully help us with that decision. (3) Acute on chronic diastolic CHF (congestive heart failure), NYHA class 1: Status: Acute Assessment and plan: Continue lasix gtt, monitoring I/Os and daily weights. Ok to transfer out of ICU to [place] with tele (4) Acute exacerbation of chronic obstructive pulmonary disease (COPD): Status: Acute Assessment and plan: Nursing reports cough productive of purulent sputum. D/c Vanco as no h/o MRSA that we are aware of. Continue zosyn (also concern for a possible UTI which these would be covering). Continue nebs, start to decrease steroids, encourage BiPAP. THe patient would benefit from going home on BiPAP. Continue budesonide, ipratropium and levalbuterol. (5) Acute on chronic respiratory acidosis: Status: Resolved Assessment and plan: As above (6) Encephalopathy acute: Status: Resolved Assessment and plan: Multifactorial, due to CO2 retention/resp. acidosis, hyponatremia, probably benzodiazepine withdrawal. Improving. COnitnue to treat above and monitor mental status. Mental status is probably close to baseline at this point. (7) CO2 narcosis: Status: Resolved Assessment and plan: As above (8) Hyponatremia: Status: Acute Assessment and plan: Likely dilutional. Improving with diuresis. Continue to monitor. Consider adrenal insufficiency given hyperkalemia - currently on steroids. (9) Hyperkalemia: Status: Resolved Assessment and plan: Continue to monitor. Was treated with lasix. (10) DVT prophylaxis: Status: Acute Assessment and plan: enoxaparin (11) Discharge planning issues: Status: Acute Assessment and plan: DNR/DNI Palliative c/s PT c/s Transfer out of ICU to [facility] with tele. Subjective Subjective Interval history since last seen: Patient is asleep when I came to see her. She is arousable, but somnolent and answers by nodding and shaking her head. She nodded to feeling better, shook head to feeling short of breath, having pain, or nausea. She agreed to go back on BiPAP. 4L of O2, 93%. A&Ox2. Impulsive with nursing. Afib overnight - new diagnosis - up to 145. Diltiazem given - has remained in rate controlled Afib since. Was initiated on PO cardizem today. Lasix gtt at 7 cc/hr 2250 cc out in 12 hrs overnight, 900 cc during the day so far. BiPAP helps diuresis. Net -1.7 L overall in the last 24 hrs. Did sleep on BiPAP. Got a PICC line for poor IV access. Exam Narrative Exam Narrative: General: Obese elderly female, somnolent, arousable, calmer than on my prior visits with her, cooperative. HEENT: EOMI, MMM Cardiovascular: irregularly irregular rhythm Lungs: Diminished breath sounds B; I do not hear wheezing. Gastrointestinal: soft, nontedistended, nontender Genitourinary: has a patterson, urine clear/light in color Extremities: 1+ BLE edema, improved from yesterday Objective Last Vital Signs Temp 36.5 C 03/17/21 05:05 Pulse 90 03/17/21 07:40 Resp 23 03/17/21 07:40 BP 104/54 L 03/17/21 07:40 Pulse Ox 95 03/17/21 07:02 Laboratory Results - last 24 hr 03/16/21 03/16/21 03/17/21 11:11 12:22 06:30 WBC RBC Hgb Hct MCV MCH MCHC RDW Plt Count MPV Sodium 122 L* 126 L Potassium 4.3 3.5 Chloride 79 L 82 L Carbon Dioxide 41.1 H 44.1 H Anion Gap 1.9 L -0.1 L BUN 25 H 27 H Creatinine 1.3 H 1.2 H Estimated GFR/1.73 m2 39.41 43.23 Glucose 149 H 162 H Calcium 9.2 8.7 Magnesium 1.7 L Urine Color Yellow Urine Clarity Clear Urine pH 5.5 Ur Specific [place] 1.010 Urine Protein Negative Urine Ketones Negative Urine Blood Small H Urine Nitrite Negative Urine Bilirubin Negative Urine Urobilinogen 0.2 Ur Leukocyte Esterase Small H Urine RBC 3-5 H Urine WBC 3-5 Ur Epithelial Cells Rare Urine Crystals Negative Urine Bacteria Moderate Urine Casts Negative Urine Mucus Negative Urine Other Rare Renal Ur Culture Indicated? C&S Done As Ordered Urine Glucose Negative 03/17/21 06:30 WBC 6.20 RBC 3.08 L Hgb 9.9 L Hct 29.7 L MCV 96.4 H MCH 32.1 MCHC 33.3 RDW 13.4 Plt Count 236 MPV 9.1 Sodium Potassium Chloride Carbon Dioxide Anion Gap BUN Creatinine Estimated GFR/1.73 m2 Glucose Calcium Magnesium Urine Color Urine Clarity Urine pH Ur Specific [place] Urine Protein Urine Ketones Urine Blood Urine Nitrite Urine Bilirubin Urine Urobilinogen Ur Leukocyte Esterase Urine RBC Urine WBC Ur Epithelial Cells Urine Crystals Urine Bacteria Urine Casts Urine Mucus Urine Other Ur Culture Indicated? Urine Glucose
[2021-03-17] MEDS: dilTIAZem 30 MG TAB PO ×3 (08:52→23:01)
[2021-03-17] MEDS: Normal Saline Flush 10 ML SYR IVP (09:10)
--- NOTE | 2021-03-17 09:44 | PDOC.CMPRO ---
- If Service Date Differs Date of service: 03/17/21 Time of Service: 09:44 Care Management Progress Note S/O:Mary Jane was sitting up in a chair when CM met with her. She seemed irritable and abrupt at times with the staff. When CM asked how she was doing, she responded that she was just frustrated with all of the questions. CM explained why obtaining the information about her home oxygen was necessary and Mary Jane seemed comfortable with the responses. CM contacted Mary Jane's daughter and discussed both Mary Jane's current home oxygen and the possibility of using a new CPAP/BIPAP type of machine. More information will be given to both Mary Jane and her daughter by RT. Mary Jane will likely transfer to Med-Surg later today. A: Mary Jane is an 80 year old woman admitted on 03/14/21 with respiratory failure P:Mary Jane will likely be discharged home with a resumption of home health services for OT, PT and nursing. She will follow up with her new provider and discharge plan of care and transport with her daughter. CM will continue to support Mary Jane and her daughter and assess for discharge concerns.
[2021-03-17] MEDS: MAGNESIUM SULFATE 2 GM/50 ML BAG IVPB (10:45)
[2021-03-17] MEDS: Lisinopril 20 MG TAB 40 MG PO (10:46)
[2021-03-17] MEDS: Senna TAB 1 TAB PO ×2 (10:46→20:04)
[2021-03-17] MEDS: guaiFENesin 600 MG TABCR PO ×2 (10:46→20:04)
[2021-03-17] MEDS: LORazepam 0.5 MG TAB PO ×3 (10:46→20:04)
[2021-03-17] MEDS: Docusate Sodium 100 MG CAP PO (10:46)
[2021-03-17] MEDS: Fluticasone NASAL SPRAY 16 GM BTL NS (11:19)
--- NOTE | 2021-03-17 13:20 | PT.INTREAT ---
Date of service: 03/17/21 Time of Service: 13:00 PT Notes Visit Reasons: Acute on chronic hypoxic hypercapnic respiratory f Inpatient Physical Therapy Treatment Note [facility] Date: 03/17/21 PRECAUTIONS:fall, standard SUBJECTIVE: Patient getting cleaned up with nursing at initiation of session. She is agreeable to PT intervention. Per nursing, patient got herself out of bed this morning and tried to get to the chair. Nursing was able to intervene to assist with transfer. Attempted PT intervention earlier this am, however patient's resting HR was 135. PT intervention was deferred for the morning. OBJECTIVE: Mental Status: Patient demonstrating aggressive behaviors with nursing at initiation of session, but agrees to short walk to obtain weight. BED MOBILITY/TRANSFERS Sit-stand: supervision Stand-sit: supervision GAIT Assistive Device: FWW Weight bearing: full Assist: CGA Distance: 6' Deviation: Patient demonstrates good safety and tolerance to short distance ambulation, however HR remains between 120-139. THEREX: deferred due to elevated HR ASSESSMENT: Heart rate elevated beyond safe ranges for PT intervention. Will progress ambulation and cardiovascular activity once stable. PLAN: Resume PT tomorrow if medically stable. TREATMENT CODE/TIME: 1:00-1:20 ([id number]) Marilee Piper, PT, DPT
[2021-03-17] MEDS: Lidocaine 5% Patch 1 PATCH TP (14:03)
[2021-03-17] MEDS: Enoxaparin 40 MG/0.4 ML SYR SC (19:57)
[2021-03-17] MEDS: Pantoprazole 40 MG VIAL IVP (20:02)
[2021-03-17] MEDS: Normal Saline Flush 10 ML SYR 20 ML IVP (20:05)
[2021-03-17] MEDS: Acetaminophen 325 MG TAB PO (21:36)
[2021-03-17 22:03] LABS: Legionella Ag Detection Urine Negative (Negative)
[2021-03-17] MEDS: methylPREDNISolone SUCC 40 MG VIAL IVP (22:58)
[2021-03-18] VITALS (31 sets, daily range): BP systolic 91–157; BP diastolic 43–77; PULSE 79–107; RESP 1–24; TEMP 36–36.7; O2SAT 88–99
[2021-03-18] MEDS: PIPERACILLIN/TAZO 3.375 GM in Normal Saline 50 ML IVPB ×4 (04:14→21:30)
[2021-03-18] MEDS: Ipratropium 0.5 MG/2.5 ML UPD VIAL UPD ×4 (05:32→23:29)
[2021-03-18] MEDS: methylPREDNISolone SUCC 40 MG VIAL IVP ×3 (05:33→21:31)
[2021-03-18 06:16] LABS: Abs Immature Grans 0.02 10^3/uL (0.0-0.06); Absolute Basophil Count 0.01 10^3/uL (0.0-0.2); Absolute Monocyte Count 0.22 10^3/uL (0.1-0.8); Absolute Neutrophil Count 5.91 10^3/uL (1.2-6.7); Basophils % 0.2; HCT 30.2 % (36.0-46.0); HGB 9.8 g/dL (11.2-15.7); Immature Grans % 0.3; Lymphocytes % 3.1; MCHC 32.5 % (32.0-36.0); MCV 98.7 fL (80-95); MPV 8.7 fL (8.0-11.0); Monocytes % 3.5; Neutrophils % 92.9; Nucleated RBC 0 %; Platelet Count 234 10^3/uL (130-400); RBC 3.06 10^6/uL (3.93-5.22); RDW 13.4 % (11.7-14.6); RDW-SD 48.1 fL; WBC 6.36 10^3/uL (4.4-10.8)
[2021-03-18 06:25] LABS: BUN 33 mg/dL (7-18); CREATININE 1.3 mg/dL (0.55-1.02); Calcium 8.5 mg/dL (8.5-10.1); Chloride 86 mmol/L (98-107); Estimated GFR 39.41 (mL/min/1.73m2); Glucose 159 mg/dL (74-106); Magnesium 1.8 mg/dL (1.8-2.4); Potassium 3.6 mmol/L (3.5-5.1); Sodium 130 mmol/L (136-145)
[2021-03-18 06:33] LABS: Anion Gap -1.00001 mmol/L (3-11); CO2 > 45.0 mmol/L (21.0-32.0)
[2021-03-18] MEDS: Levalbuterol 1.25 MG/3 ML UPD VIAL UPD (07:25)
[2021-03-18] MEDS: Budesonide 0.5 MG/2 ML UPD VIAL UPD ×2 (07:41→20:02)
[2021-03-18] MEDS: Docusate Sodium 100 MG CAP PO ×2 (08:01→20:01)
[2021-03-18] MEDS: dilTIAZem 30 MG TAB PO ×3 (08:01→23:28)
[2021-03-18] MEDS: guaiFENesin 600 MG TABCR PO ×2 (08:01→20:01)
[2021-03-18] MEDS: Senna TAB 1 TAB PO ×2 (08:01→20:00)
[2021-03-18] MEDS: Normal Saline Flush 10 ML SYR 20 ML IVP ×2 (08:02→20:02)
[2021-03-18] MEDS: Lisinopril 20 MG TAB 40 MG PO (08:02)
[2021-03-18] MEDS: Normal Saline Flush 10 ML SYR IVP ×5 (08:02→21:30)
[2021-03-18] MEDS: LORazepam 0.5 MG TAB PO ×3 (08:02→20:01)
[2021-03-18 09:27] LABS: HCO3 50 mmol/L (22-26); pO2 54 mmHg (80-105); sO2 88 % (95-98); tCO2 47 mmol/L (23-27)
[2021-03-18 09:30] LABS: BE > 15 mmol/L (-2-3); FIO2L 2 L; Site Left Radial; pCO2 81 mmHg (35-45)
[2021-03-18] MEDS: Furosemide 40 MG/4 ML VIAL 60 MG IVP ×2 (09:52→16:27)
[2021-03-18] MEDS: Acetaminophen 325 MG TAB PO (11:02)
[2021-03-18] MEDS: Lidocaine 5% Patch 1 PATCH TP (11:48)
--- NOTE | 2021-03-18 11:54 | PT.INTREAT ---
Date of service: 03/18/21 Time of Service: 12:20 PT Notes Visit Reasons: Acute on chronic hypoxic hypercapnic respiratory f Inpatient Physical Therapy Treatment Note [facility] Date: 03/18/21 PRECAUTIONS:fall, standard SUBJECTIVE: Mary Jane initially declines PT intervention this morning. I checked in with her later, and she's agreeable to participating. She states that she feels fine. OBJECTIVE: PAIN: denies BED MOBILITY/TRANSFERS Rolling L/R: independent Supine-sit: supervision Sit-stand: supervision Stand-sit: supervision GAIT Assistive Device: FWW Weight bearing: full Assist: CGA Distance: 20' VITALS: monitored HR and SaO2 throughout. At initiation of session, HR is 92, SaO2 at 94% on 2.5LPM O2 via nasal cannula. During ambulation, she desats to 77%, HR to 138. She was assisted to sitting and instructed in pursed lip breathing as vitals were continuously monitored. She slowly resaturates to 87%, HR to 109. Nursing alerted to vitals. THEREX: Patient completed seated exercises as noted in flowsheet. These were performed prior to ambulation, with SaO2 remaining in low 90s throughout. Post treatment, patient was positioned comfortably in chair and oriented to call andrade. A chair alarm was placed and activated. ASSESSMENT: Improved functional gait distances today, although with poor tolerance from a respiratory standpoint. PLAN: Continue progressing cardiovascular activity and strengthening with close monitoring of vitals. TREATMENT CODE/TIME: 12:20-12:45 ([id number]) Marilee Piper, PT, DPT [facility]
[2021-03-18 12:10] LABS: pCO2 73 mmHg (35-45)
--- NOTE | 2021-03-18 14:22 | PT.INTREAT ---
Date of service: 03/18/21 Time of Service: 02:00 PT Notes Visit Reasons: Acute on chronic hypoxic hypercapnic respiratory f Inpatient Physical Therapy Treatment Note [facility] Date: 03/18/21 PRECAUTIONS:fall, standard SUBJECTIVE: Mary Jane states that she is feeling fine. She states that she wasn't tired at all from her walk this morning. OBJECTIVE: PAIN: denies BED MOBILITY/TRANSFERS Rolling L/R: independent Supine-sit: independent Sit-stand: supervision Stand-sit: supervision GAIT Assistive Device: FWW Weight bearing: full Assist: FWW Distance: 25' Deviation:none VITALS: Patient on 3LPM at rest. Increased to 4LPM during ambulation (per RT). Patient maintains SaO2 at 94% during ambulation. THEREX: Began introduction of LE strengthening and balance retraining activities, however patient's family arrived for visit and patient requested discontinuation of PT intervention. She tolerated introduction of small base of support standing with upper extremity movements for early balance retraining, and requires CGA. ASSESSMENT: Improved tolerance to ambulation, with good maintenance of SaO2 in the 90s with increased supplemental oxygen. PLAN: Plan to increase balance retraining and lower extremity strengthening tomorrow. We will continue progressive ambulation for cardiovascular retraining with close monitoring of SaO2. TREATMENT CODE/TIME: 2:00?220 ([id number]) Marilee Piper, PT, DPT [facility]
--- NOTE | 2021-03-18 14:23 | W.SPSTP ---
Date of service: 03/18/21 Time of Service: 10:23 Subjective Patient assessed in AM, seated upright and drinking large volume of thin liquid (coffee) while on commode; asking for help with getting up from commode, SIGN LANGUAGE TRANSLATOR present for assistance. MOTORCYCLE SUBASSEMBLER discussed recommendations for diet texture upgrade given patient's improved status and risk management which was reviewed with RN and MD. Objective/Assessment/Plan Objective Patient/Caregiver/Staff Education:: *Pt is at heightened risk of airway occlusion or airway compromise unless provided with 1:1 supervision for all solid PO intake, continued counseling for reducing rate of intake; recommendations reviewed with RN and MD Assessment Krystin Swallow Protocol: Pass Negative overt s/sx aspiration noted with level 0 thin liquid intake or level 7 regular solid trial; continued 1:1 supervision is recommended given diet texture upgrade, please encourage reduced rate of intake and allow RR to recover prior to next bite, monitor 02 saturation levels, may adjust texture to minced&moist solids to reduce energy output during mastication as necessary. Plan Please re-consult as needed; no further acute MOTORCYCLE SUBASSEMBLER services warranted at this time. Recommendations Diet: 7-Regular Liquids: 0-Thin Liquids Strategies/Adaptions: Upright and out of bed in a chair for all meals/snacks, Pace rate of intake, Small bites, Small sips, Ensure complete mastication & swallow before next bite and Oral care at least 2x/day Supervision: Direct Supervision via of [facility] staff,self-feeding and Monitor O2 stats(do not feed patient if O2 under 90%) Recommendations: Patient is appropriate for diet texture upgrade to Level 7 Regular solids / Level 0 thin liquids at this time, patient agreeable to this change, requesting toast. Additional Notes: Discussed recommendations with both RN and MD re: diet texture upgrade to Level 7 Regular solids, 1:1 supervision highly encouraged given respiratory fluctuations while in ICU MOTORCYCLE SUBASSEMBLER Service Code: CPT 78053 (treatment of swallowing dysfunction and/or oral function for feeding) Coding
--- NOTE | 2021-03-18 15:37 | W.PM.PROGNOT ---
Date of Service Date of service: 03/18/21 Time of Service: 15:37 Assessment and Plan Assessment and plan (1) Acute on chronic respiratory failure with hypoxia and hypercapnia: Status: Acute Assessment and plan: multifactorial. Clinically, this is more due to acute exacerbation of CHF than COPD exacerbation, but is on empiric abx due to sputum production, described as possibly purulent by nursing. Continue BiPAP HS/when asleep, diuresis, nebs, steroids. The patient is interested in ASTRAL with nasal pillows - we are working to set this up. (2) Atrial fibrillation with rapid ventricular response: Status: Resolved Assessment and plan: Converted to NSR. Continue cardizem 30 mg PO TID today. Continue to monitor on tele. Given the patient's inconsistencies in mental status, I am not sure she is the best candidate for anticoagulation. Palliative care is consulted and will hopefully help us with that decision. (3) Acute on chronic diastolic CHF (congestive heart failure), NYHA class 1: Status: Acute Assessment and plan: Switch to lasix boluses, monitoring I/Os and daily weights. (4) Acute exacerbation of chronic obstructive pulmonary disease (COPD): Status: Acute Assessment and plan: Nursing reports cough productive of purulent sputum. MRSA screen is pending, but improving off of vancomycin. Continue zosyn (also concern for a possible UTI which these would be covering). Continue nebs, steroids at current dose, encourage BiPAP tonight. THe patient would benefit from going home on NIV/ASTRAL. Continue budesonide, ipratropium and levalbuterol. (5) Acute on chronic respiratory acidosis: Status: Resolved Assessment and plan: As above (6) Encephalopathy acute: Status: Resolved Assessment and plan: Multifactorial, due to CO2 retention/resp. acidosis, hyponatremia, probably benzodiazepine withdrawal. Improving. Continue to treat above and monitor mental status. Mental status is probably close to baseline at this point. (7) CO2 narcosis: Status: Resolved Assessment and plan: As above (8) Hyponatremia: Status: Acute Assessment and plan: Likely dilutional. Significantly better with diuresis. Continue to monitor. Consider adrenal insufficiency given hyperkalemia - currently on steroids. (9) Hyperkalemia: Status: Resolved Assessment and plan: Continue to monitor. Was treated with lasix. (10) DVT prophylaxis: Status: Acute Assessment and plan: enoxaparin (11) Discharge planning issues: Status: Acute Assessment and plan: DNR/DNI Palliative c/s PT c/s Continues to require hospitalization. ASTRAL to be arranged on discharge Subjective Subjective Interval history since last seen: Ms Rivera is on 3L of O2. She is diuresing well. Converted to NSR overnight. She was taking a nap when I came to see her. She woke up easily, states she is not short of breath, does not have any pain, dizziness, or nausea. She did not wear the BiPAP last night. Respiratory therapy discussed possibility of ASTRAL with patient and daughter. The patient had stated to them that she would agree to wear it as long as it was not a mask. She was interested in nasal pillows. She patient confirmed with me that she was interested in getting the ASTRAL machine. I have tried to call the daughter several times today and left two voice mail messages. Exam Narrative Exam Narrative: General: Obese elderly female, asleep diagonally in the bed, arousable, answers questions, A&ox2 HEENT: EOMI, MMM Cardiovascular: RRR, no m/r/g Lungs: Diminished breath sounds B; quiet wheezing on expiration B Gastrointestinal: soft, nontedistended, nontender Genitourinary: has a patterson, urine clear/light in color Extremities: 1+ BLE edema, improved from yesterday Objective Last Vital Signs Temp 36.7 C 03/18/21 15:17 Pulse 99 H 03/18/21 15:17 Resp 18 03/18/21 15:17 BP 108/65 03/18/21 15:17 Pulse Ox 99 03/18/21 15:17 Laboratory Results - last 24 hr 03/15/21 03/16/21 03/18/21 08:34 19:15 06:00 WBC RBC Hgb Hct MCV MCH MCHC RDW Plt Count MPV Immature Gran % Neutrophils % Lymphocytes % Monocytes % Eosinophils % Basophils % Nucleated RBC % Absolute Neutrophils Absolute Lymphocytes Absolute Monocytes Absolute Eosinophils Absolute Basophils ABG Sample Site ABG pH ABG pCO2 73 H* ABG pO2 ABG HCO3 ABG Total CO2 ABG O2 Saturation ABG Base Excess Oxygen Liter Flow Sodium 130 L Potassium 3.6 Chloride 86 L Carbon Dioxide > 45.0 H Anion Gap -1.74831 L BUN 33 H Creatinine 1.3 H Estimated GFR/1.73 m2 39.41 Glucose 159 H Calcium 8.5 Magnesium 1.8 Urine Legionella Ag Negative 03/18/21 03/18/21 06:00 09:20 WBC 6.36 RBC 3.06 L Hgb 9.8 L Hct 30.2 L MCV 98.7 H MCH 32.0 MCHC 32.5 RDW 13.4 Plt Count 234 MPV 8.7 Immature Gran % 0.3 Neutrophils % 92.9 Lymphocytes % 3.1 Monocytes % 3.5 Eosinophils % 0.0 Basophils % 0.2 Nucleated RBC % 0 Absolute Neutrophils 5.91 Absolute Lymphocytes 0.20 L Absolute Monocytes 0.22 Absolute Eosinophils 0.00 Absolute Basophils 0.01 ABG Sample Site Left Radial ABG pH 7.40 ABG pCO2 81 H* ABG pO2 54 L ABG HCO3 50 H ABG Total CO2 47 H ABG O2 Saturation 88 L ABG Base Excess > 15 H Oxygen Liter Flow 2 Sodium Potassium Chloride Carbon Dioxide Anion Gap BUN Creatinine Estimated GFR/1.73 m2 Glucose Calcium Magnesium Urine Legionella Ag
--- NOTE | 2021-03-18 18:00 | RESPIRATORY ---
Addendum entered by Sukhi Jacome 03/19/21 18:40: Updated patient summary with correct Astral verbiage from Dr Cage has been faxed to [facility]. Currently waiting for CM to confirm patient has been signed up for [employer], and new O2 prescription that matches patient's current needs on discharge needs to be determined and filled out on [facility] prescription page, then faxed. Addendum entered by Sukhi Jacome 03/19/21 08:55: (continued) current patient notes, have all been faxed to [facility]. Currently we are waiting for updated summary notes with proper Astral verbiage added, and new and current O2 needs and prescription added to [facility] script page. Both these [facility]. Currently, pt is estimated to be discharged on Monday03/22/21. Original Note: RT spoke with patient in room, and patient's daughter downstairs (daughter was not fully vaccinated and was not allowed in patient's room at the time) about Astral tunneling machine operator at home. Both patient and daughter agreed and were on board with moving forward with setting machine up at home through [facility]. Paperwork has been started, demographics, qualifying ABG, current patient notes
--- NOTE | 2021-03-18 19:00 | NUR.NOTE ---
Nursing Note: 03/18/21 07:30 Patient was transferred out of the ICU, [id number] handoff done between this RN and MARLEN Rivers. Patient verbalized understanding of transfer. VSS, see Worklist.
[2021-03-18] MEDS: Enoxaparin 40 MG/0.4 ML SYR SC (20:01)
[2021-03-18] MEDS: Pantoprazole 40 MG VIAL IVP (20:02)
[2021-03-18 23:23] LABS: Streptococcus Pneumoniae Ag, U Negative (Negative)
[2021-03-19] VITALS (16 sets, daily range): BP systolic 119–164; BP diastolic 67–86; PULSE 85–136; RESP 2–20; TEMP 36.1–36.7; O2SAT 90–97
[2021-03-19] MEDS: methylPREDNISolone SUCC 40 MG VIAL IVP ×4 (02:00→19:43)
[2021-03-19] MEDS: Levalbuterol 1.25 MG/3 ML UPD VIAL UPD ×3 (02:21→11:51)
[2021-03-19] MEDS: Normal Saline Flush 10 ML SYR IVP ×6 (03:47→21:34)
[2021-03-19] MEDS: PIPERACILLIN/TAZO 3.375 GM in Normal Saline 50 ML IVPB ×4 (03:48→21:33)
[2021-03-19] MEDS: Ipratropium 0.5 MG/2.5 ML UPD VIAL UPD ×4 (05:46→23:38)
[2021-03-19 07:04] LABS: Abs Immature Grans 0.02 10^3/uL (0.0-0.06); Absolute Eosinophil Count 0.02 10^3/uL (0.0-0.7); Absolute Lymphocyte Count 0.16 10^3/uL (1.2-3.4); Absolute Monocyte Count 0.44 10^3/uL (0.1-0.8); Absolute Neutrophil Count 5.52 10^3/uL (1.2-6.7); Eosinophils % 0.3; HGB 10.1 g/dL (11.2-15.7); Immature Grans % 0.3; Lymphocytes % 2.6; MCH 32.3 pg (27.0-33.0); MCHC 32.6 % (32.0-36.0); MPV 8.9 fL (8.0-11.0); Monocytes % 7.1; Neutrophils % 89.7; Nucleated RBC 0 %; Platelet Count 235 10^3/uL (130-400); RBC 3.13 10^6/uL (3.93-5.22); RDW 13.6 % (11.7-14.6); RDW-SD 49.5 fL; WBC 6.16 10^3/uL (4.4-10.8)
[2021-03-19 07:18] LABS: Anion Gap 0.3 mmol/L (3-11); BUN 34 mg/dL (7-18); CO2 44.7 mmol/L (21.0-32.0); CREATININE 1.2 mg/dL (0.55-1.02); Calcium 8.6 mg/dL (8.5-10.1); Chloride 87 mmol/L (98-107); Estimated GFR 43.23 (mL/min/1.73m2); Glucose 175 mg/dL (74-106); Magnesium 1.5 mg/dL (1.8-2.4); Potassium 3.2 mmol/L (3.5-5.1); Sodium 132 mmol/L (136-145)
[2021-03-19] MEDS: Budesonide 0.5 MG/2 ML UPD VIAL UPD ×2 (07:47→19:42)
[2021-03-19] MEDS: Lisinopril 20 MG TAB 40 MG PO (07:56)
[2021-03-19] MEDS: guaiFENesin 600 MG TABCR PO ×2 (07:56→19:41)
[2021-03-19] MEDS: Docusate Sodium 100 MG CAP PO ×2 (07:56→19:41)
[2021-03-19] MEDS: dilTIAZem 30 MG TAB PO ×3 (07:56→23:38)
[2021-03-19] MEDS: Acetaminophen 325 MG TAB PO (07:57)
[2021-03-19] MEDS: Furosemide 40 MG/4 ML VIAL 60 MG IVP ×2 (07:57→16:52)
[2021-03-19] MEDS: Senna TAB 1 TAB PO ×2 (07:57→19:41)
[2021-03-19] MEDS: LORazepam 0.5 MG TAB PO ×3 (07:57→19:41)
[2021-03-19] MEDS: Normal Saline Flush 10 ML SYR 20 ML IVP ×2 (07:58→19:42)
[2021-03-19] MEDS: Fluticasone NASAL SPRAY 16 GM BTL NS (07:59)
[2021-03-19] MEDS: Potassium Chloride 20 MEQ TABCR 40 MEQ PO (09:33)
[2021-03-19] MEDS: MAGNESIUM SULFATE 4 GM/100 ML BAG IVPB (09:33)
[2021-03-19] MEDS: Lidocaine 5% Patch 1 PATCH TP (11:50)
--- NOTE | 2021-03-19 13:33 | PDOC.CMPRO ---
- If Service Date Differs Date of service: 03/19/21 Time of Service: 13:33 Care Management Progress Note S/O: A: Mary Jane is an 80 year old woman admitted on 03/14/21 with respiratory failure P:Mary Jane will likely be discharged home with a resumption of home health services for OT, PT and nursing. She will follow up with her new provider and discharge plan of care and transport with her daughter. CM will continue to support Mary Jane and her daughter and assess for discharge concerns.
--- NOTE | 2021-03-19 13:35 | CMPROGNOTE_ITS ---
- If Service Date Differs Date of service: 03/18/21 Time of Service: 14:00 Care Management Progress Note S/O:Mary Jane was sitting up in a chair when CM met with her. She shared that her 2 sons had come to visit her from [place] and she was visibly pleased about this. She stated that one of them is going to stay in [place] for an extended visit. Mary Jane has been having difficulty tolerating bipap at night and RT has recommended an Astral breathing machine for home use. She and her daughter were reluctant at first but have now agreed. RT is working on insurance approval. A: Mary Jane is an 80 year old woman admitted on 03/14/21 with respiratory failure P:Mary Jane will likely be discharged home with a resumption of home health services for OT, PT and nursing. She will follow up with her new provider and discharge plan of care and transport with her daughter. CM will continue to support Mary Jane and her daughter and assess for discharge concerns.
--- NOTE | 2021-03-19 14:21 | PT.INTREAT ---
Date of service: 03/19/21 Time of Service: 10:20 PT Notes Visit Reasons: Acute on chronic hypoxic hypercapnic respiratory f Inpatient Physical Therapy Treatment Note [facility] Date: 03/19/21 PRECAUTIONS:fall, standard SUBJECTIVE: Mary Jane is agreeable to PT intervention. OBJECTIVE: PAIN: denies BED MOBILITY/TRANSFERS Supine-sit: independent Sit-supine: independent Sit-stand: supervision Stand-sit: supervision GAIT Assistive Device: FWW Weight bearing: full Assist: supervision Distance: AM: 25' x 1, SaO2 88% on 2.5L PM: 25'x1, SaO2 87% on 3L Deviation: slow, shuffling gait VITALS: see above. THEREX: AM: initiated standing balance exercises, and UE/LE strengthening for cardiovascular retraining (see flowsheet) PM: progressed strengthening, with addition of functional LE strengthening. Patient tolerates sit-stand x 3 with supervision only, with bed slightly elevated, limited by GERMAIN. ASSESSMENT: Improving tolerance to activity, although with continued oxygen desaturation with short distance ambulation. PLAN: Continue progressing gait and therex as tolerated, with close monitoring of SaO2. TREATMENT CODE/TIME: 10:20-10:55 ([id number]); 1:45-2:15 ([id number]) Marilee Piper, PT, DPT [facility]
--- NOTE | 2021-03-19 16:36 | W.PM.PROGNOT ---
Date of Service Date of service: 03/19/21 Time of Service: 15:30 Assessment and Plan Assessment and plan (1) Acute on chronic respiratory failure with hypoxia and hypercapnia: Status: Acute Assessment and plan: multifactorial. Clinically, this is more due to acute exacerbation of CHF than COPD exacerbation, but is on empiric abx due to sputum production (zosyn day 4/), described as possibly purulent by nursing. Continue BiPAP HS/when asleep, diuresis, nebs, steroids. The patient is interested in ASTRAL with nasal pillows - we are working to set this up. (2) Atrial fibrillation with rapid ventricular response: Status: Resolved Assessment and plan: Converted to NSR, and now back to Afib, though rate controlled. Continue cardizem 30 mg PO TID. Continue to monitor on tele. Given the patient's inconsistencies in mental status, I am not sure she is the best candidate for anticoagulation. Palliative care is consulted and will hopefully help us with that decision. Ultimately, this could be also discused with the PCP, but I do not feel comfortable initiating anticoagulation on this admission. (3) Acute on chronic diastolic CHF (congestive heart failure), NYHA class 1: Status: Acute Assessment and plan: Continue lasix boluses, monitoring I/Os and daily weights. Cr of 1.2 is stable and probably closer to patient's true baseline than 0.8 (4) Acute exacerbation of chronic obstructive pulmonary disease (COPD): Status: Acute Assessment and plan: Nursing reports cough productive of purulent sputum. MRSA screen negative. Continue zosyn (day 4/5). Continue nebs, steroid taper, encourage BiPAP at night in the hospital. THe patient would benefit from going home on NIV/ASTRAL. Continue budesonide nebs, ipratropium and levalbuterol. (5) Acute on chronic respiratory acidosis: Status: Resolved Assessment and plan: As above (6) Encephalopathy acute: Status: Resolved Assessment and plan: Multifactorial, due to CO2 retention/resp. acidosis, hyponatremia, probably benzodiazepine withdrawal. Improving. Continue to treat above and monitor mental status. Mental status is probably close to baseline at this point. (7) CO2 narcosis: Status: Resolved Assessment and plan: As above (8) Hyponatremia: Status: Acute Assessment and plan: Likely dilutional. Significantly better with diuresis. Continue to monitor. Consider adrenal insufficiency given hyperkalemia - currently on steroids. (9) Hyperkalemia: Status: Resolved Assessment and plan: Continue to monitor. Was treated with lasix. (10) DVT prophylaxis: Status: Acute Assessment and plan: enoxaparin (11) Discharge planning issues: Status: Acute Assessment and plan: DNR/DNI Palliative c/s PT c/s Continues to require hospitalization - anticipate discharge on ASTRAL to be arranged on discharge on 03/22/21 Subjective Subjective Interval history since last seen: Ms Sequeira feels better. She repeats that she is interested in having the machine (ASTRAL) with nasal pillows, just not the mask. Denies dizziness, chest pain, shortness of breath, nausea. Exam Narrative Exam Narrative: General: Obese elderly female, Awake and eating pudding at the side of the bed HEENT: EOMI, MMM Cardiovascular: irregularly irregular rhythm, no m/r/g Lungs: Diminished breath sounds B; quiet wheezing on expiration B Gastrointestinal: soft, nontedistended, nontender Genitourinary: has a patterson, urine clear/light in color Extremities: 1+ BLE edema, improved from yesterday Objective Last Vital Signs Temp 36.6 C 03/19/21 15:45 Pulse 90 03/19/21 15:45 Resp 19 03/19/21 15:45 BP 120/70 03/19/21 15:45 Pulse Ox 92 03/19/21 15:45 Laboratory Results - last 24 hr 03/16/21 03/19/21 03/19/21 19:15 06:25 06:25 WBC 6.16 RBC 3.13 L Hgb 10.1 L Hct 31.0 L MCV 99.0 H MCH 32.3 MCHC 32.6 RDW 13.6 Plt Count 235 MPV 8.9 Immature Gran % 0.3 Neutrophils % 89.7 Lymphocytes % 2.6 Monocytes % 7.1 Eosinophils % 0.3 Basophils % 0.0 Nucleated RBC % 0 Absolute Neutrophils 5.52 Absolute Lymphocytes 0.16 L Absolute Monocytes 0.44 Absolute Eosinophils 0.02 Absolute Basophils 0.00 Sodium 132 L Potassium 3.2 L Chloride 87 L Carbon Dioxide 44.7 H Anion Gap 0.3 L BUN 34 H Creatinine 1.2 H Estimated GFR/1.73 m2 43.23 Glucose 175 H Calcium 8.6 Magnesium 1.5 L Ur Strep pneumoniae Ag Negative
[2021-03-19] MEDS: Enoxaparin 40 MG/0.4 ML SYR SC (19:40)
[2021-03-19] MEDS: Pantoprazole 40 MG VIAL IVP (19:41)
[2021-03-20] VITALS (20 sets, daily range): BP systolic 116–186; BP diastolic 72–103; PULSE 88–168; RESP 8–24; TEMP 36.1–36.9; O2SAT 90–96
[2021-03-20] MEDS: Normal Saline Flush 10 ML SYR IVP ×3 (01:41→21:55)
[2021-03-20] MEDS: methylPREDNISolone SUCC 40 MG VIAL IVP ×2 (01:42→14:06)
[2021-03-20] MEDS: PIPERACILLIN/TAZO 3.375 GM in Normal Saline 50 ML IVPB ×4 (03:42→21:56)
[2021-03-20] MEDS: Ipratropium 0.5 MG/2.5 ML UPD VIAL UPD ×4 (05:24→23:24)
[2021-03-20 06:38] LABS: Abs Immature Grans 0.05 10^3/uL (0.0-0.06); Absolute Basophil Count 0.01 10^3/uL (0.0-0.2); Absolute Eosinophil Count 0.01 10^3/uL (0.0-0.7); Absolute Lymphocyte Count 0.17 10^3/uL (1.2-3.4); Absolute Monocyte Count 0.49 10^3/uL (0.1-0.8); Absolute Neutrophil Count 5.81 10^3/uL (1.2-6.7); Basophils % 0.2; Eosinophils % 0.2; HCT 32.4 % (36.0-46.0); HGB 10.7 g/dL (11.2-15.7); Immature Grans % 0.8; Lymphocytes % 2.6; MCH 32.3 pg (27.0-33.0); MCV 97.9 fL (80-95); MPV 8.8 fL (8.0-11.0); Monocytes % 7.5; Neutrophils % 88.7; Nucleated RBC 0 %; Platelet Count 241 10^3/uL (130-400); RBC 3.31 10^6/uL (3.93-5.22); RDW 13.8 % (11.7-14.6); RDW-SD 49.3 fL; WBC 6.54 10^3/uL (4.4-10.8)
[2021-03-20 07:06] LABS: Anion Gap -0.3 mmol/L (3-11); BUN 33 mg/dL (7-18); CO2 43.3 mmol/L (21.0-32.0); CREATININE 1.2 mg/dL (0.55-1.02); Calcium 8.9 mg/dL (8.5-10.1); Chloride 90 mmol/L (98-107); Estimated GFR 43.23 (mL/min/1.73m2); Glucose 163 mg/dL (74-106); Magnesium 2.1 mg/dL (1.8-2.4); Potassium 3.9 mmol/L (3.5-5.1); Sodium 133 mmol/L (136-145)
[2021-03-20] MEDS: Lisinopril 20 MG TAB 40 MG PO (08:06)
[2021-03-20] MEDS: dilTIAZem 30 MG TAB PO (08:06)
[2021-03-20] MEDS: Furosemide 40 MG/4 ML VIAL 60 MG IVP ×2 (08:06→15:23)
[2021-03-20] MEDS: Normal Saline Flush 10 ML SYR 20 ML IVP ×2 (08:07→19:50)
[2021-03-20] MEDS: guaiFENesin 600 MG TABCR PO ×2 (08:07→19:52)
[2021-03-20] MEDS: LORazepam 0.5 MG TAB PO ×3 (08:07→19:52)
[2021-03-20] MEDS: Senna TAB 1 TAB PO ×2 (08:07→19:52)
[2021-03-20] MEDS: Docusate Sodium 100 MG CAP PO ×2 (08:07→19:52)
[2021-03-20] MEDS: Fluticasone NASAL SPRAY 16 GM BTL NS (08:09)
[2021-03-20] MEDS: Budesonide 0.5 MG/2 ML UPD VIAL UPD ×2 (09:52→19:53)
--- NOTE | 2021-03-20 10:08 | PT.INNT ---
PT Notes Visit Reasons: Acute on chronic hypoxic hypercapnic respiratory f Pt refused PTx2 today. Nursing had also gone in with PT the second time to try and see if pt would participate and still refused.
[2021-03-20] MEDS: Lidocaine 5% Patch 1 PATCH TP (12:34)
[2021-03-20] MEDS: Acetaminophen 325 MG TAB PO (12:34)
--- NOTE | 2021-03-20 14:09 | PGE_ITS ---
Date of Service Date of service: 03/20/21 Time of Service: 14:09 Assessment and Plan Assessment and plan (1) Atrial fibrillation with rapid ventricular response: Status: Resolved Assessment and plan: Currently in Afib with vent rate in the 90's to low 100's generally, but this afternoon went into the 140 range On cardizem 30mg po Q8H. Increase cardizem to 60mg Q8H Monitor. No AC at this time given her variable level of alertness and cognition. Also a fall risk. AC to be discussed further with PCP. (2) Acute exacerbation of chronic obstructive pulmonary disease (COPD): Status: Acute Assessment and plan: Day 01/27 of Zosyn; had purulent sputum per nursing staff report. Cont Pulmicort, Atrovent, methylpredisolone. Change to oral prednisone tomorrow. (3) Acute on chronic diastolic CHF (congestive heart failure), NYHA class 1: Status: Acute Assessment and plan: Now of IV push lasix at 40mg BID. Tomorrow, change to oral Torsemide 80mg daily. (4) Hyponatremia: Status: Acute Assessment and plan: Na now 133. (5) Hypertension: Status: Acute Assessment and plan: Cont LIsinopril 40mg daily. Increasing Diltiazem to 60mg po Q8H for HR control. Monitor. (6) Acute on chronic respiratory failure with hypoxia and hypercapnia: Status: Acute Assessment and plan: Needs NIV ventilation to prevent hypercarbia but doesn't tolerate face mask with BiPAP. Attempting to procur an Astral device for home that allows 2 modes to be programmed. A nasal pillow delivery system also ordered. She has not changed her Medicare address from [place] to [place] and this needs to be done before the company that supplies the Astral device can proceed. Care Management aware. Cont supplemental O2 per NC at 2L. O2 sats in the low to mid 90's. Subjective Subjective Patient reports: feels better, shortness of breath (Improved.) and afebrile; denies nausea and vomiting Interval history since last seen: She would like to have her patterson catheter removed. She wishes to go home today. She did not use BiPAP overnight; doesn't like using a mask. Exam Const General: cooperative and no acute distress Nutritional Appearance: obese Orientation: alert and oriented x3 Resp Effort & Inspection: normal respiratory effort Auscultation: clear to auscultation bilaterally and diminished lung sounds Cardio Other: Irreg Irreg GI Inspection: obesity Palpation: soft and nontender Neuro General: no focal motor deficits Cognition: normal cognition Speech: speech normal Extrem General: no pedal edema (THIEN stockings in place. No pitting edema.) and no calf tenderness Objective Last Vital Signs Temp 36.8 C 03/20/21 11:44 Pulse 90 03/20/21 13:16 Resp 24 03/20/21 13:16 BP 163/74 H 03/20/21 11:44 Pulse Ox 91 L 03/20/21 13:16 Laboratory Results - last 24 hr 03/20/21 03/20/21 03/20/21 05:25 06:30 06:30 WBC 6.54 RBC 3.31 L Hgb 10.7 L Hct 32.4 L MCV 97.9 H MCH 32.3 MCHC 33.0 RDW 13.8 Plt Count Cancelled 241 MPV 8.8 Immature Gran % 0.8 Neutrophils % 88.7 Lymphocytes % 2.6 Monocytes % 7.5 Eosinophils % 0.2 Basophils % 0.2 Nucleated RBC % 0 Absolute Neutrophils 5.81 Absolute Lymphocytes 0.17 L Absolute Monocytes 0.49 Absolute Eosinophils 0.01 Absolute Basophils 0.01 Sodium 133 L Potassium 3.9 D Chloride 90 L Carbon Dioxide 43.3 H Anion Gap -0.3 L BUN 33 H Creatinine 1.2 H Estimated GFR/1.73 m2 43.23 Glucose 163 H Calcium 8.9 Magnesium 2.1
[2021-03-20] MEDS: dilTIAZem 60 MG TAB PO ×2 (14:31→21:54)
--- NOTE | 2021-03-20 15:39 | CMPROGNOTE_ITS ---
- If Service Date Differs Date of service: 03/20/21 Time of Service: 15:39 Care Management Progress Note S/O: Mary Jane is laying in bed watching television when CM comes to meet with her. She reports doing well and not needing anything. Nursing staff report that she refused Bipap last night. Per RT, Mary Jane needs to change her address with Medicare from [place] to [place] before the company that supplies the Astral device can obtain insurance authorization for the device. Mary Jane remains on telemetry and on O2. Mary Jane refused PT twice today. CM will continue to follow. A: Mary Jane is an 80 year old woman admitted on 03/14/21 with respiratory failure. P: No change in plan. Mary Jane will likely be discharged home with a resumption of home health services for OT, PT and nursing. She will follow up with her new provider and discharge plan of care and transport with her daughter. CM will continue to support Mary Jane and her daughter and assess for discharge concerns.
[2021-03-20] MEDS: dilTIAZem 25 MG/5 ML VIAL 5 MG IVP (16:25)
[2021-03-20] MEDS: Enoxaparin 40 MG/0.4 ML SYR SC (19:52)
[2021-03-20] MEDS: Pantoprazole 40 MG VIAL IVP (19:57)
[2021-03-21 00:06] VITALS: BP 190/101; PULSE 98; RESP 20; TEMP 37.3; O2SAT 97
[2021-03-21 03:27] VITALS: BP 167/93; PULSE 89; RESP 18; TEMP 36; O2SAT 97
[2021-03-21] MEDS: PIPERACILLIN/TAZO 3.375 GM in Normal Saline 50 ML IVPB ×2 (03:42→10:00)
[2021-03-21 05:33] VITALS: PULSE 91; RESP 8; O2SAT 93
[2021-03-21] MEDS: dilTIAZem 60 MG TAB PO (05:33)
[2021-03-21] MEDS: Ipratropium 0.5 MG/2.5 ML UPD VIAL UPD (05:33)
[2021-03-21 07:43] VITALS: BP 161/73; PULSE 80; RESP 18; TEMP 36.6; O2SAT 91
[2021-03-21] MEDS: Budesonide 0.5 MG/2 ML UPD VIAL UPD (07:51)
[2021-03-21 07:52] VITALS: RESP 14
[2021-03-21] MEDS: Normal Saline Flush 10 ML SYR 20 ML IVP (08:27)
[2021-03-21] MEDS: predniSONE 20 MG TAB 40 MG PO (08:27)
[2021-03-21] MEDS: Torsemide 20 MG TAB 80 MG PO (08:27)
[2021-03-21] MEDS: Senna TAB 1 TAB PO (08:27)
[2021-03-21] MEDS: Fluticasone NASAL SPRAY 16 GM BTL NS (08:27)
[2021-03-21] MEDS: Lisinopril 20 MG TAB 40 MG PO (08:27)
[2021-03-21] MEDS: guaiFENesin 600 MG TABCR PO (08:27)
[2021-03-21] MEDS: Docusate Sodium 100 MG CAP PO (08:27)
[2021-03-21] MEDS: LORazepam 0.5 MG TAB PO (08:27)
--- NOTE | 2021-03-21 09:30 | DSE_ITS ---
Date of service: 03/21/21 Time of Service: 09:30 DS: Diagnosis Discharge Diagnosis (1) Atrial fibrillation with rapid ventricular response: Status: Resolved (2) Acute exacerbation of chronic obstructive pulmonary disease (COPD): Status: Acute (3) Acute on chronic diastolic CHF (congestive heart failure), NYHA class 1: Status: Acute (4) Hyponatremia: Status: Acute (5) Hypertension: Status: Acute (6) Acute on chronic respiratory failure with hypoxia and hypercapnia: Status: Acute Discharge Plan Disposition Condition: Serious Discharge Details Reason For Visit: Acute on chronic hypoxic hypercapnic respiratory f Admit Date/Time: 03/14/21 16:52 Admit Provider: Camille Cage Attending Provider: Camille Cage Primary Care Provider: Srinivasa Hamilton Hospital Course Hospital Course: Ms Amaris Lam is an 80 year old female with PMHx of chronic hypoxic hypercapnic respiratory failure, oxygen-dependent COPD on 4L of O2 at home, as well as h/o chronic diastolic CHF, and chronic hyponatremia, who was brought to [facility] ED today for altered mental status and worsening shortness of breath. Her workup in the ED revealed acute on chronic respiratory acidosis with pH of 7.2 by ABG and pCO2 of >100. Her imaging ruled out acute PE, but did reveal pulmonary edema. She was treated with nebs, IV steroids, lasix, and bipap therapy. While initially she was not compliant with BiPAP therapy, she finally did permit it and since then her pCO2 and pH have improved. Hospitalist admission was requested. With diureses, BiPAP (used intermittently d/t patients intolerance to the mask), nebulized resp txs and steroids, her status improved. The process was started to supply her with a NIV device call Astral. Care managment and respiratory care assisting with obtaining the device. It was not available at the time of discharge but patient was adamant about going home. When the Astral device would be provided could not yet be acertained so it was agreed she could discharge; avoid excessive Na and fluid intake and avoid increasing supplemental O2 delivery. The latter has been a recurrent issue that causes her to retain CO2 and become somnolent. Her lasix will be replaced by Torsemide for better absorption. She will complete a prednisone taper. Encourage use of a nicotine replacement product to assist in smoking cessation. F/U with PCP in 1-2 weeks. Continue to be in contact with respiratory therapy department regarding home non-invasive ventilation device called Astral.. Home Meds and New Rx's Prescriptions: New sennosides [Senokot] 8.6 mg Tablet 1 tab PO BID Qty: 0 RF: 0 nicotine 14 mg/24 hr Patch 24 Hour 14 mg transdermal DAILY PRN PRNQty: 0 RF: 0 lidocaine 5 % Adhesive Patch,Medicated 1 patch topical DAILY@1200 Qty: 10 RF: 0 torsemide 100 mg tablet 100 mg PO DAILY Qty: 30 RF: 0 prednisone 10 mg tablet See Taper mg PO DAILY Qty: 21 RF: 0 Continued acetaminophen 325 mg tablet 325 mg PO Q4H PRN (Reason: pain) Qty: 90 RF: 4 famotidine 20 mg tablet 20 mg PO DAILY Qty: 90 RF: 4 Breo Ellipta 100-25 mcg/dose blister with device 1 inh INHALATION DAILY Qty: 60 RF: 4 fluticasone propionate 50 mcg/actuation spray,suspension 2 spray INTRANASAL DAILY Qty: 16 RF: 4 potassium chloride 10 mEq tablet extended release 10 meq PO DAILY Qty: 90 RF: 1 guaifenesin [Mucinex] 600 mg tablet extended release 12hr 600 mg PO BID Qty: 180 RF: 4 levalbuterol tartrate [Xopenex HFA] 45 mcg/actuation HFA aerosol inhaler 2 puff Inhalation Q4H PRN Qty: 15 RF: 4 lidocaine 4 % adhesive patch,medicated 1 patch TOPICAL DAILY PRN (Reason: pain) Qty: 10 RF: 3 lisinopril 40 mg tablet 40 mg PO DAILY Qty: 90 RF: 4 lorazepam 0.5 mg tablet 0.5 mg PO BID PRN (Reason: anxiety) Qty: 90 RF: 0 magnesium oxide 400 mg (241.3 mg magnesium) tablet 400 mg PO BID Qty: 30 RF: 0 Spiriva Respimat 2.5 mcg/actuation mist 2 puff inhalation DAILY Qty: 1 RF: 4 Oxygen EACH NS PRN Qty: 2 RF: 0 levalbuterol HCl [Xopenex] 1.25 mg/3 mL Solution For Nebulization 1.25 mg INHALATION Q8H PRN PRNRF: 0 Discontinued furosemide 80 mg tablet 80 mg PO DAILY Qty: 60 RF: 1 Discharge Instructions Instructions: Heart Failure (DC) Activity:: Activity as Tolerated Equipment/Supplies:: No Equipment Needed Diet:: Heart Healthy / 2 gr sodium DS: Summary Time Spent with Patient providing and/or coordinating discharge services: Greater than 30 minutes Status at Discharge Functional status at discharge: uses cane/walker Overall status at discharge: patient is back to baseline Mental Status: mental status grossly normal Speech and Movement: speech and movement normal Mood: congruent mood Affect: normal affect Exam Psych Mental Status: mental status grossly normal Speech and Movement: speech and movement normal Mood: congruent mood Affect: normal affect DS: Data Vitals/I&O Vitals and I&O: Vital Signs Temperature 36.6 C 03/21/21 07:43 Temperature Source Temporal Artery Scan 03/21/21 07:43 Pulse 80 03/21/21 07:43 Pulse Rhythm Irregular 03/21/21 04:49 Pulse 90 03/18/21 04:02 Respiratory Rate 18 03/21/21 07:43 Respiratory Effort Non-Labored 03/21/21 04:49 Respiratory Depth Normal 03/21/21 04:49 Respiratory Pattern Normal 03/21/21 04:49 Blood Pressure 161/73 H 03/21/21 07:43 Blood Pressure Mean 82 03/18/21 06:26 Blood Pressure Position Supine 03/18/21 06:26 Pulse Oximetry 91 L 03/21/21 07:43 Oxygen Delivery Method Nasal Cannula 03/21/21 07:43 Oxygen Flow Rate 2 03/21/21 07:43 Fraction of Inspired Oxygen (FIO2) 35 03/21/21 07:52 Pain Level 0 03/21/21 07:43 Comment 03/21/21 03:27 Intake & Output 03/20/21 03/20/21 03/21/21 11:59 23:59 11:59 Intake Total 690 / 1200 510 / 1200 170 / 170 Output Total 2500 / 3550 1050 / 3550 550 / 550 Balance -1810 / -2350 -540 / -2350 -380 / -380 Weight 84.7 kg 85.588 kg Intake: IV 210 / 310 100 / 310 50 / 50 Oral 480 / 890 410 / 890 120 / 120 Output: Urine 2500 / 3550 1050 / 3550 550 / 550 Other: Urine Color Yellow Yellow Yellow Urine Appearance Clear Clear Clear Urine Odor None Normal Stool Size Moderate Stool Characteristics Liquid Brown Voiding Methods Bedside Commode Bedside Commode Diaper PFSH Medical History Alcohol abuse Arthritis Back pain Bilateral sensorineural hearing loss CHF (congestive heart failure) 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 Cancer Stroke Father , 90's Diabetes Heart disease Hyperlipidemia Sister , 60's Diabetes Social History Smoking/Tobacco Use Status: Current every day Tobacco Type: cigarettes Tobacco: How many years used: 60 Second Hand Exposure: Yes Smoking risk assessment performed?: Yes Alcohol Intake: current Alcohol Intake frequency: holidays/special occasions only Drug use: Socially Substance use type: does not use Caregiver/Support person: Yes Pets and animals: Yes Pets and animals: dog(s) Sexually active: No What is your relationship status?: How often do you talk on the phone with friends or family?: twice per week How often do you get together with friends or relatives?: never How often do you attend congregation or rastafarian services?: decline to answer Do you belong to any clubs or organized social groups?: no Panel score (0-1 are the most socially isolated patients): 0 What type of physical activity do you participate in: none [place]/Moravian: Roman Catholic Seatbelt use: sometimes Helmet use: No Drive intox or ride w/intox corrugated fastener driver: No Do you feel safe at home: Yes Do you feel safe in your relationship?: Yes
--- NOTE | 2021-03-21 10:24 | PDOC.CMDIS ---
- If Service Date Differs Date of service: 03/21/21 Time of Service: 10:24 LACE Index Scoring Tool - Questions: Length of Stay (in days): 7 - 13 Acuity (Admit via E.D.?): Yes Comorbidities: Congestive Heart Failure, Chronic Pulmonary Disease, Any Tumor E.D. Visits: 4 - Answers: Total Score: 17 Risk of Readmission: High Risk Care Management Discharge Reason for Hospitalization: Acute on chronic hypoxic hypercapnic respiratory Discharge Plan: Mary Jane is discharged home with a resumption of Home Health RN, PT, and OT. She will follow up with her PCP and discharge plan of care as directed. Family is driving her home via private vehicle. Patient/Family Education Needs: Discharge instructions, limitations, and follow up plan of care, including Ask Me Three and self management. Services Needed at Discharge: Home Health Care Services (Resumption of RN, PT, and OT.), Oxygen Therapy (Resumption of Oxygen Therapy.)
--- NOTE | 2021-03-21 10:31 | PT.INTREAT ---
PT Notes Visit Reasons: Acute on chronic hypoxic hypercapnic respiratory f Inpatient Physical Therapy Treatment Note [facility] Date: 03/21/21 PRECAUTIONS:Fall Sit-stand: SBA Stand-sit: SBA GAIT Assistive Device: FWW Weight bearing: Full Assist: SBA Distance: Marching in place to F THEREX: Pt completed UE and LE strengthening ther ex while seated as per flow sheet. ASSESSMENT: Pt tolerated today's session well. Pt's oxygen was increased to 4L with activities and was 85%-100% at 4L. PLAN: Pt is going to be discharged today to her home with her daughter. TREATMENT CODE/TIME: 10:10-10:25 (15) GORAN
[2021-03-21 11:16] VITALS: BP 146/80; PULSE 86; RESP 17; TEMP 36.6; O2SAT 92
[2021-03-21] MEDS: Lidocaine 5% Patch 1 PATCH TP (11:40)
[2021-03-21] MEDS: LORazepam 2 MG/ML VIAL 0.5 MG IVP (11:41)
[2021-03-21] MEDS: dilTIAZem CD 180 MG CAPCR PO (11:42)
[2021-03-21] MEDS: Normal Saline Flush 10 ML SYR IVP (13:40)
--- NOTE | 2021-03-21 14:06 | RESPIRATORY ---
03/21/2021- Pt is being discharged today. Mabel Sanchez RT at [facility] has been notified of D/C and will reach out to the Pt's daughter to discuss insurance status and approval process. RX and supporting documentation has all been faxed to [facility].
[2021-03-21] MEDS: Bacitracin 1 PACKET TP (14:09)
--- NOTE | 2021-03-22 16:13 | PT.INDS ---
Date of service: 03/22/21 Time of Service: 16:13 PT Notes Visit Reasons: Acute on chronic hypoxic hypercapnic respiratory f Physical Therapy Inpatient Discharge Summary Date: 03/22/21 Dates of service: 03/16/2021 through 03/21/2021 This is a clinical summary of care provided for the duration of dates listed above. No charge was made in the completion of this documentation. Referring Doctor: Dr. Cage PT Orders: PT CONSULT: limited ability to ambulate Precautions: fall, standard Patient Profile/Admitting Diagnosis: Patient admitted from ER, where she presented with altered mental status and shortness of breath. Admitted for medical management of respiratory failure and COPD exacerbation. 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 Chronic respiratory failure with hypoxia Compression fracture of spine COPD (chronic obstructive pulmonary disease) GERD (gastroesophageal reflux disease) Hearing loss, bilateral Hyperlipidemia Hypertension Hyponatremia (07/20/14) Mass of right lung Mixed anxiety and depressive disorder Osteoporosis Palliative care patient Psychiatric problem Tobacco abuse Surgical History H/O arthroscopy of left knee H/O cataract removal with insertion of prosthetic lens H/O pneumonectomy For histoplasmosis S/P colonoscopy Social History/Home Situation: Patient lives in a single level home with ramp to enter. She lives with her daughter, who is supportive. States that she typically walks with a rollator for household distances. Equipment Owned/DME: 4WW, supplemental O2 (on 4L at home) Subjective: NT. See most recent INSTALLATION DRAFTER notes. Objective: General Observation:NT. See most recent INSTALLATION DRAFTER notes. Mental Status: NT. See most recent INSTALLATION DRAFTER notes. Pain: NT. See most recent INSTALLATION DRAFTER notes. Vital Signs: NT. See most recent INSTALLATION DRAFTER notes. ROM: Right Upper Extremity: Shoulder flexion to 120 degrees. Otherwise WFL Left Upper Extremity: Shoulder flexion 120 degrees. Otherwise WFL Right Lower Extremity: WFL Left Lower Extremity: WFL Strength: Right Upper Extremity: Shoulder flexion 3 -/5. Biceps and triceps 3/5 or greater (no resistance applied due to multiple lines) Left Upper Extremity: Shoulder flexion 3 -/5. Biceps and triceps 3/5 or greater (no resistance applied due to multiple lines) Right Lower Extremity: Hip flexion 4+/5. Quads 4/5. Hamstrings 4+/5. Ankle dorsiflexion 5/5. Left Lower Extremity: Hip flexion 5/5. Quads 4+/5. Hamstrings 4+/5. Ankle dorsiflexion 5/5. Bed Mobility/Transfers: Sit?stand: CGA Stand?sit: CGA Bed?chair: CGA, FWW Gait: Patient ambulates up to 25 feet with FWW, full weight bearing, standby assist. She requires assistance for management of her multiple lines. Continues to demonstrate shortness of breath with ambulation activity. Balance: Static Sitting: Normal Dynamic Sitting: Good Static Standing: Fair Dynamic Standing: Fair Assessment: Patient is a 80 year old female referred to physical therapy services with the diagnosis of limited ability to ambulate in the presence of respiratory failure, COPD. Patient continues to present with clinical signs and symptoms consistent with diagnosis, as demonstrated by the following impairment level findings: 1. Decreased upper extremity strength 2. Decreased right lower extremity strength 3. Decreased activity tolerance Impairments are continuing to contribute to the following functional limitations: 1. Decreased tolerance to household distance ambulation Goals: Goals X1 week 1. Supine-Sit: Supervision NOT MET 2. Sit-Supine supervision NOT MET 3. Sit-Stand: Supervision NOT MET 4. Stand-Sit: Supervision NOT MET 5. Bed-Chair: CGA with FWW NOT MET 6. Chair-Bed: CGA with FWW NOT MET 7. Gait: CGA with FW W x50 feet NOT MET DISCHARGE RECOMMENDATIONS: Patient will benefit from home health PT services in order to progress mobility level using least restrictive assistive ambulatory device, assess home safety, identify additional equipment needs, and establish a functional maintenance program that will increase ability of patient to remain at home. TREATMENT CODE/TIME: UT Thank you for the opportunity to participate in the care of this patient. Luzmaria Castro PT, DPT, CLT [facility] [place], [place]
== END 2021-03-21 14:17 | disposition home health service (06) | DRG 291 ==
LOC: ER 17:03 → ICU 18:59 → MS 03-18 07:20
PROVIDERS: Emergency Medicine; Physician Assistant; Admitting Provider Internal Medicine; Emergency Provider Physician Assistant; PCP Nurse Practitioner Family; Visit Provider Internal Medicine
DX: I11.0 Hypertensive heart disease with heart failure (principal); J96.21 Acute and chronic respiratory failure with hypoxia; J96.22 Acute and chronic respiratory failure with hypercapnia; J44.1 Chronic obstructive pulmonary disease with (acute) exacerbation; E87.2 Acidosis; E87.1 Hypo-osmolality and hyponatremia; J84.9 Interstitial pulmonary disease, unspecified; F13.239 Sedative, hypnotic or anxiolytic dependence with withdrawal, unspecified; G93.49 Other encephalopathy; I50.33 Acute on chronic diastolic (congestive) heart failure; E87.5 Hyperkalemia; Z99.81 Dependence on supplemental oxygen; Z66 Do not resuscitate; Z20.822 Contact with and (suspected) exposure to COVID-19; R91.1 Solitary pulmonary nodule; F10.10 Alcohol abuse, uncomplicated; M54.9 Dorsalgia, unspecified; J32.8 Other chronic sinusitis; K21.9 Gastro-esophageal reflux disease without esophagitis; H91.8X3 Other specified hearing loss, bilateral; F17.210 Nicotine dependence, cigarettes, uncomplicated; M81.0 Age-related osteoporosis without current pathological fracture; F41.8 Other specified anxiety disorders; E78.5 Hyperlipidemia, unspecified; E66.9 Obesity, unspecified; Z68.31 Body mass index [BMI] 31.0-31.9, adult; I48.91 Unspecified atrial fibrillation
CPT/HCPCS: 36410; 36415; 36573; 36592; 51702; 71275; 80048; 80053; 82805; 84145; 85027; 87081; 87449; 87635; 92526; 92610; 93005; 94640; 96361; 96374; 96375; 97110; 97162; 97530; 99291; J1650; 36600; 71045; 81003; 81015; 83605; 83735; 83880; 84443; 84484; 85025; 85049; 85379; 85610; 85730; 87070; 87086; 87205; 87899; 93010; 94660; 99232; 99239; J1940; J2060; J2543; J2930; J3475; J3490; J7512; J7614; J7620; J7626; J7644